=== PATIENT | female | born 1935 | race Caucasian/White ===

== ENCOUNTER → 2016-05-18 | Outpatient (CLI) | payer OTHER | LOC: MMPC 09:00 | PROVIDERS: ATTEND Family Medicine | DX: E11.40 Type 2 diabetes mellitus with diabetic neuropathy, unspecified (principal); M17.4 Other bilateral secondary osteoarthritis of knee; M54.5 Low back pain | CPT/HCPCS: 99212; G0463 ==

== ENCOUNTER 2016-08-23 17:29 | Emergency (ER) | payer OTHER ==
[2016-08-23] MEDS ORDERED: BACITRACIN 0.9 GM PACKET OINT TOPICAL ONE (17:43)
[2016-08-23 18:14] VITALS: RESP 16; TEMP 97.4
--- NOTE | 2016-08-23 20:42 | PDOC ---
Foot / Ankle Injury - General Chief Complaint: General Medical Stated Complaint: trimmed toenail/ won't stop bleeding Date Seen by Provider: 08/23/16 Time Seen by Provider: 17:30 Source: POSITIVE: Patient, EMS Exam Limitations: POSITIVE: No limitations Nurse's Notes Reviewed & Considered: Yes EMS Report Reviewed & Considered: Verbal - History of Present Illness Initial Comments: The patient is an 19 year old female. 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 She accidentally sliced the distal most tip of her left great toe with her scissors. Patient states that the wound bled persistently and the patient became alarmed and called the ambulance, who brought her to the emergency room. Have you received a tetanus shot in the past 10 years?: Yes Location: Left Foot Timing: REPORTS: Abrupt Duration: 1/2 hour Severity: Mild Quality: REPORTS: "Pain" (mild, locally at site of injury, left great toe) Location at Time of Onset: REPORTS: Home Context: REPORTS: Laceration Modifying Factors: REPORTS: Nothing Exacerbates Associated Symptoms: DENIES: Tingling Distally, Numbness Distally, Swelling, Snapping Sensation, Popping Sensation, Other Any Prior Injuries Related to Current Complaint?: No - Patient Allergies Allergies/Adverse Reactions: Allergies Allergy/AdvReac Type Severity Reaction Status Date / Time metoclopramide HCl Allergy Severe SHORTNESS Verified 08/23/16 17:41 [From Reglan] OF BREATH pregabalin [From Lyrica] Allergy Intermediate Nausea, Verified 08/23/16 17:41 confusion, dizziness, lightheaded - Patient Home Medications Home Medications: Home Medications Blood Sugar Diagnostic [Test Strip] 1 each IN TID #50 strip 06/01/13 Ropinirole HCl [Requip] 0.5 mg PO QHS #30 tab 08/11/15 Atenolol 1 tab PO DAILY #30 tab 11/11/15 Lisinopril 1 tab PO DAILY #30 tab 11/11/15 Aspirin 81 mg PO DAILY 01/30/16 Calcium 500 mg PO DAILY 01/30/16 Docusate Sodium [Stool Softener] 100 mg PO BID 01/30/16 Multivits W-Fe,Other Min [Century Senior] 1 each PO DAILY 01/30/16 Naproxen Sodium [Aleve] 220 mg PO BID 01/30/16 Gabapentin 1 cap PO QID #120 cap 10/26/16 Simvastatin 1 tab PO DAILY #90 tab 04/18/16 Omeprazole 1 cap PO DAILY #90 cap 04/20/16 Ceylon-3 Fatty Acids [Fish Oil] 300 mg PO DAILY 08/23/16 Past Medical History - heen HEENT History: Cataracts, Hard of Hearing, Dentures/Partials Additional HEENT History: WEARS GLASSES Cardiovascular History: Hypertension, Hyperlipidemia Additional Cardiovasular History: PALPITATIONS Respiratory History: Sleep Apnea, Home Oxygen Use Additional Respiratory History: USES OXYGEN AT NIGHT SINCE IS UNABLE TO WEAR CPAP MASK Gastrointestinal History: Denies History Genitourinary History: Denies History Additional Genitourinary History: diabetic nephropathy with mildly elevated creatinine. Endocrine History: Type 2 Diabetes (oral) Additional Endocrine History: HAS NOT HAD GLIPIZIDE IN [address] INSTRUCTION Musculoskeletal History: Arthritis, Back Pain, Muscle Weakness, Physical Limitation, Other (please comment) Prosthesis or Implant: No Additional Musculoskeletal History: PERIPHERAL NEUROPATHY Neurological History: Denies History Additional Neurological History: Restless legs syndrome that she attributes to metaclopramide therapy Blood Disorders: Denies History Psychiatric History: Depression History of Sexually Transmitted Diseases: No Cancer History: Denies History In Past Year Been Physically Harmed or Verbally Threatened: No History of MDRO: No History of Other Communicable Diseases: No Tobacco Use: Never Smoker Alcohol Use: None Substance Use Type: None Previous Surgical History: Yes Type / Date of Surgery: BLADDER SUSPENSION; CHOLECYSTECTOMY; HYST; LUMBAR FUSION ; CATARACT 07/21/12 Anesthesia Reactions: No Malignant Hyperthermia: No Significant Family History: Heart disease, Cancer, COPD, Diabetes, Hypertension Past Medical History Reviewed: Reviewed - No Changes ROS - Limitations ROS Limitations: No Limitations Constitution: REPORTS: Denies Symptoms Cardiovascular: REPORTS: Denies Cardiac Symptoms Respiratory: REPORTS: Denies Resp Symptoms Neurological: REPORTS: Denies Neuro Symptoms Gastrointestinal: REPORTS: Denies GI Symptoms Endocrine: REPORTS: Denies Symptoms Musculoskeletal: REPORTS: Recent Injury (Superficial slicing type injury tip of left great toe; see diagram) Genitourinary: REPORTS: Denies Symptoms Eyes: REPORTS: Denies Symptoms ENT: REPORTS: Denies Symptoms Skin: REPORTS: Other (Superficial slice type injury distal aspect left great toe ; see diagram) Lympathic: REPORTS: Denies Lympathic Symptoms Immunologic: POSITIVE: Denies Symptoms Psychiatric: POSITIVE: Denies Psych Symptoms Foot / Ankle Exam - General Appearance General Appearance: POSITIVE: Alert, Cooperative, No Acute Distress. NEGATIVE: No Evidence of Trauma (slice type laceration distal aspect left great toe; see diagram) - Extremities Foot: POSITIVE: Soft Tissue Tenderness. NEGATIVE: Bony Tenderness, Swelling, Ecchymosis, Limited ROM d/t Pain, Meehan. ROM d/t Decr. Funct., Deformity, Nail Injury, Complete Avulsion, Partial Avulsion, Subungual Hematoma (laceration tip of left great toe) Ankle: POSITIVE: Normal Inspection, Non-Tender, Normal ROM, Stable Gait: POSITIVE: Normal Neuro: POSITIVE: Sensation Normal, Motor Normal Vascular: POSITIVE: No Vascular Compromise, Full Pulses, Equal Pulses Tendons: POSITIVE: Tendon Function Normal Skin: POSITIVE: See Diagram (laceration) - Neck / Back Neck / Back: Normal Inspection - Respiratory / CVS Respiratory / CVS: POSITIVE: Chest Non-Tender, No Respiratory Distress, Heart Sounds Normal, Regular Rate/Rhythm, Breath Sounds Normal Peripheral Pulses: Radial (R): 2+, Radial (L): 2+, Dorsalis-pedis (R): 2+, Dorsalis-pedis (L): 2+ Images - Lower Extremities Feet: 1 - Superficial slice type injury left great toe with good hemostasis upon presentation to the emergency room. Foot / Ankle Progress - Results Reviewed by me Pain Medication Addressed: POSITIVE: Yes (recommended Tylenol) School/Work Release Addressed: POSITIVE: Not Applicable - Patient's Progress Re-Examine Time:: 17:45 Re-Examine Comment: Wound is very superficial and requires no sutures. Patient cleansed with normal saline and bacitracin dressing placed. Advised patient to not take aspirin, Aleve or Advil for 72 hours. Return here anytime if condition worsens in any way. Status: POSITIVE: Improved - Consult Counseled: POSITIVE: Patient, RE: DX, RE: Need for F/U Patient Care Time - Estimated PCT Patient Care Time (In Minutes): 15 Vital Signs - Recent Vital Signs Vital Signs: Vital Signs (Last 8 hours) Temp Pulse Resp BP Pulse Ox 08/23/16 17:35 97.4 F 66 16 107/60 93 - VS Reviewed Vital Signs Reviewed: Yes Discharge Clinical Impression: Laceration Discharge Disposition: Discharged to Home Condition: Fair Patient Instructions Given at Discharge: Laceration (ED) Additional Instructions: You have a very superficial laceration to the tip of the left great toe. No sutures were required for this injury. Your bleeding is well controlled. No aspirin, Aleve or Advil for 72 hours. Wash wound well with soap and water daily and you may apply bacitracin or Neosporin to the wound daily. Return anytime at first sign of infection or if condition worsens in any way. Follow- up with your primary care provider. Follow Up With: JAX CERVANTES [Primary Care Provider] - (Instructions as above. Follow-up with your primary care provider. Return as necessary.)
== END 2016-08-23 17:55 | disposition home or self-care (01) ==
LOC: ER 17:29
DX: S91.112A Laceration without foreign body of left great toe without damage to nail, initial encounter (principal); E11.9 Type 2 diabetes mellitus without complications; W45.8XXA Other foreign body or object entering through skin, initial encounter
CPT/HCPCS: 99282

== ENCOUNTER → 2016-09-10 | Outpatient (CLI) | payer OTHER ==
--- NOTE | 2016-09-10 14:55 | DI ---
XR L-SPINE 2-3 VW,09/10/2016 10:30 AM: Clinical History: Bilateral low back pain without sciatica. Previous Exam: October 28, 2013 Findings: AP and lateral views of the lumbar spine are obtained, and demonstrate grade 2 anterolisthesis of L4 on L5. There are intervertebral disc fusion devices noted as well. Peripheral vascular calcifications are stable. Patient is status post bilateral laminectomies at the L5 level. The patient is status post cholecystectomy. Impression: No significant change since the prior exam.
== END ==
LOC: ORTHO 10:46
PROVIDERS: ATTEND Orthopaedic Surgery
DX: M54.5 Low back pain (principal); M43.16 Spondylolisthesis, lumbar region; Z98.1 Arthrodesis status
CPT/HCPCS: 72100

== ENCOUNTER → 2016-10-01 | Outpatient (CLI) | payer OTHER ==
--- NOTE | 2016-10-01 14:26 | DI ---
MRI LEFT SHOULDER SCAN, 10/01/2016 12:58 PM: Clinical History: Left shoulder pain. Previous Exam: None at this facility. Technique: Axial, coronal, and sagittal fat saturated PD; axial gradient FE; coronal fat saturatedT2 weighted; sagittal T2 weighted. Motion correction sequences were utilized, but there is still some sl ight motion artifact on the oblique sagittal and coronal scans. There is no soft tissue edema. Moderate arthrosis of the AC joint is present along with fluid in the joint space. There is a small subchondral cyst in the humeral head at the attachment of the infraspin atus tendon. Fluid is present in the subacromion bursa. The articular surface partial thickness tear is present in the anterior aspect of the supraspinatus tendon and this measures approximately 10 x 10 mm in transverse and AP dimensions. There is tendinosis of the infraspinatus tendon as well as the t endon of the long head of the biceps muscle in the rotator interval. There is a type II SLAP tear wit h posterior extension into the posterosuperior quadrant. The IGHL complex is intact. Sagittal scans confirm the partial-thickness tear in the supraspinatus tendon. The subscapularis and teres minor tendons are normal. There is synovitis in the subscapularis recess. No muscular atrophy i s noted and there is no abnormal sclerosis of the glenoid fossa. There is a type I acromion. Axial scans demonstrate a cordlike middle glenohumeral ligament. The AC joint arthrosis is confirmed. There is thinning of the articular surfaces of the humeral head and glenoid fossa. Readin. There is a partial thickness articular surface tear of the anterior aspect of the supraspinatus t endon measuring 10 x 10 mm in AP and transverse dimensions. Tendinosis is present in the infraspinatu s tendon and the tendon of the long head of the biceps muscle in the rotator interval. There is a typ e II SLAP tear with posterior extension into the posterosuperior quadrant. Moderate arthrosis of the AC joint is noted with a joint effusion. 2. The subscapularis and teres minor tendons are intact. There is a type I acromion. Cartilaginous s urfaces of the humeral head and glenoid fossa are thin but intact.
== END ==
LOC: MRI 12:52
PROVIDERS: ATTEND Orthopaedic Surgery
DX: M25.512 Pain in left shoulder (principal); S43.432A Superior glenoid labrum lesion of left shoulder, initial encounter; M19.012 Primary osteoarthritis, left shoulder; S46.012A Strain of muscle(s) and tendon(s) of the rotator cuff of left shoulder, initial encounter
CPT/HCPCS: 73221

== ENCOUNTER → 2016-10-15 | Outpatient (CLI) | payer OTHER | LOC: MMPC 10:00 | PROVIDERS: ATTEND Orthopaedic Surgery | DX: S22.000S Wedge compression fracture of unspecified thoracic vertebra, sequela (principal); M54.6 Pain in thoracic spine; M43.16 Spondylolisthesis, lumbar region; M75.42 Impingement syndrome of left shoulder; M12.812 Other specific arthropathies, not elsewhere classified, left shoulder | CPT/HCPCS: 20610; 99214; G0463; J0702 ==

== ENCOUNTER → 2016-10-23 | Outpatient (CLI) | payer OTHER ==
--- NOTE | 2016-10-24 10:18 | DI ---
MRI THORACIC SPINE W/O CN,10/23/2016 1:53 PM: Clinical History: Compression fracture of the thoracic spine. Previous Exam: January 12, 2010 Findings: Multiplanar MR images are obtained through the thoracic spine without contrast. There is gentle dextroscoliosis of the thoracic spine centered at the T8/9 level. Vertebral body height is preserved except for some mild anterior wedging. There are diffuse degenerative changes of the cervical spine. The spinal cord descends normally with normal course, caliber and signal characteristics. The posterior fossa is unremarkable. Marrow signal is preserved. The posterior spinous processes are unremarkable. The major vascular flow voids are unremarkable. Individual intervertebral disc spaces: There is disc desiccation and a broad-based disc bulge at T6/7 . This is essentially unchanged from prior exam. There is some facet and ligamentum flavum hypertrophy contributing to stable moderate neural foramina l narrowing and mild central canal stenosis. T7/8: There is a very small broad-based disc bulge without significant stenosis. T8/9: No significant stenosis. T9/T10: Very small broad-based disc bulge without significant stenosis. T10/11: No significant stenosis. T11/12: There is disc desiccation, annular fissuring and a broad-based disc bulge combining with some mild facet hypertrophy to cause mild central canal stenosis and no significant neuroforaminal narrow ing. This is essentially unchanged from the prior exam. T12/L1: There is disc desiccation, a broad-based disc bulge and some annular fissuring at this level with some endplate osteophyte formation and some mild facet hypertrophy combining to cause mild centr al canal stenosis and mild bilateral neural foraminal narrowing. Impression: Multilevel degenerative disc disease essentially unchanged from the prior exam. No evidence of acute compression deformity.
--- NOTE | 2016-10-24 12:03 | DI ---
MRI LUMBAR SPINE W/O CN,10/23/2016 1:53 PM: Clinical History: Back pain. Previous Exam: October 28, 2013 Findings: Multiplanar MR images are obtained through the lumbar spine without contrast. There is grade 1 anterolisthesis of L4 on L5 and L5 on S1 unchanged from the prior exam. There is blooming metallic artifact at L4/5 and L5/S1. There is also blooming metallic artifact withi n the posterior soft tissues of the lumbar spine. The spinal cord descends normally with normal course, caliber and signal characteristics with a patrice l conus at the L1 level. There is fluid within the subcutaneous fat and within the paravertebral soft tissues. This collection remains stable dating back to 2013. Individual intervertebral disc spaces: T11/12: There is disc desiccation, annular fissuring and a 6 mm left paracentral disc fragment which causes some mild central canal stenosis. T12/L1: There is disc desiccation and, annular fissuring, and a broad-based disc bulge with some face t and ligamentum flavum hypertrophy contributing to mild central canal stenosis and mild bilateral ne ural foraminal narrowing. L1/2: There is disc desiccation, annular fissuring and facet hypertrophy and a broad-based disc bulge with some annular fissuring contributing to mild central canal stenosis and moderate to severe bilat eral neural foraminal narrowing. This is slightly worse than it was on the prior exam. L2/3: There is disc desiccation, annular fissuring and a broad-based disc bulge unchanged from the pr ior exam with facet and ligamentum flavum hypertrophy contributing to severe left and moderate to sev ere right lateral recess stenosis. This is also slightly worse than on the prior exam. This causes se veronica central canal stenosis L3/4: There is disc desiccation, a broad-based disc bulge and some significant facet and ligamentum f lavum hypertrophy to include a left synovial cyst measuring 8 mm in long axis unchanged from the prio r exam. There is severe central canal stenosis at this level with moderate to severe right and mild t o moderate left lateral recess stenosis. This is essentially unchanged from the prior exam. L4/5: There is grade 1 anterolisthesis at this level and there is stable postsurgical changes consist ent with interbody fusion at this level. There has also been bilateral laminectomies. There are fluid signal area is adjacent to the surgical site which were also seen on the prior exam, and remains unc hanged. There is stable severe right and moderate left neural foraminal narrowing. L5/S1: Patient is status post interbody fusion at this level. There is grade 1 anterolisthesis of L5 on S1. Posterior laminectomies are seen which decompress the central canal. There is severe right lat eral recess stenosis and severe left lateral recess stenosis. Impression: Diffuse degenerative changes and postsurgical changes as above which have slightly worsened since the prior exam. The worst involvement is seen at the L2/3 level where there is severe central canal stenosis and at t he L3/4 level where there is severe central canal stenosis.
== END ==
LOC: MRI 13:46
PROVIDERS: ATTEND Orthopaedic Surgery
DX: M54.5 Low back pain (principal); S22.000S Wedge compression fracture of unspecified thoracic vertebra, sequela; M51.16 Intervertebral disc disorders with radiculopathy, lumbar region; M51.15 Intervertebral disc disorders with radiculopathy, thoracolumbar region; M51.14 Intervertebral disc disorders with radiculopathy, thoracic region
CPT/HCPCS: 72146; 72148

== ENCOUNTER → 2016-11-28 | Outpatient (CLI) | payer OTHER ==
--- NOTE | 2016-11-28 14:29 | DI ---
AP PELVIS and RIGHT HIP, 11/28/2016 1:33 PM: Clinical History: Right hip pain. Previous Exam: None at this facility. There is no soft tissue abnormality. The bony structures of the pelvis are normal. 2 views of the rig ht hip show acetabular over coverage. The femoral head appears spherical. There is no joint space margaret rowing. There is osteoporosis. Readin. There is bony acetabular over coverage along the superior and lateral aspect of the acetabulum, b ut the joint space is preserved and the femoral head is spherical. No significant arthritic changes a re appreciated. 2. The AP pelvis view is unremarkable.
--- NOTE | 2016-11-28 18:19 | DI ---
LUMBAR SPINE SERIES, 11/28/2016 1:51 PM: Clinical History: Spondylolisthesis of the lumbar region. Previous Exam: 09/10/2016. At any of the levels Upright lateral flexion and extension views are submitted. The patient may actually be bending primar miriam through the hips rather than flexing or extending the lumbar region. The vertebral bodies are of normal height and size. There is disc space narrowing from L1-2 through L3-4. There is a minimal grad e 1 reverse spondylolisthesis at L1-2 and L2-3 with a minimal grade 1 spondylolisthesis at L3-4. Ther e is a grade 2 spondylolisthesis at L4-5 and anterior and posterior fusions have been performed with laminectomies at L4 and L5. There is no instability noted with flexion and extension maneuvers at any of these levels. Readin. Status post L4 and L5 laminectomies with anterior and posterior fusions at L4-5 and L5-S1. 2. There is a minimal grade 1 reverse spondylolisthesis at L1-2 and L2-3 and a minimal grade 1 spond ylolisthesis at L3-4. L4-5 has a grade 2 spondylolisthesis. No instability is noted with flexion and extension maneuvers but the patient may be pending primarily at the level of the hips rather than thr ough the lumbar spine. 3. Chronic disc space narrowing is present at L1-2 through L3-4.
== END ==
LOC: ORTHO 13:35
PROVIDERS: ATTEND Physician Assistant
DX: M54.5 Low back pain (principal); M25.551 Pain in right hip; M43.16 Spondylolisthesis, lumbar region; M48.06 Spinal stenosis, lumbar region; M47.816 Spondylosis without myelopathy or radiculopathy, lumbar region; M47.814 Spondylosis without myelopathy or radiculopathy, thoracic region; Z98.1 Arthrodesis status
CPT/HCPCS: 72100; 73502; 99214; G0463

== ENCOUNTER → 2016-12-05 | Outpatient (CLI) | payer OTHER ==
--- NOTE | 2016-12-05 20:04 | DI ---
CT LUMBAR SPINE W/O CONTRAST,12/05/2016 10:04 AM: Clinical History: Low back pain Previous Exam: None at this facility. Findings: Multiple helically acquired CT images are obtained through the lumbar spine without contrast. Sagitta l and coronal reconstructions are obtained, and demonstrate diffuse degenerative changes throughout t he lumbar spine. Bilateral laminectomies are noted involving the L4 and L5 levels. Advanced degenerative changes are s een as well. There is loss of intervertebral disc height at multiple levels. There is interbody fusio n at L5/S1. There is only some bony fusion at this level. There is grade 1 anterolisthesis of L4 and L5 also with interbody fusion with no significant new bone formation at this time. There is some anterior wedging of the L1 vertebral body as well as the T12 v ertebral body. Peripheral vascular calcifications are seen. The lung bases are clear. There is fluid density which is in continuity with the central canal which extends to the right at L5 into the posterior soft tissues. This may represent a meningocele or a persistent seroma. There is some mild levoscoliosis of the lumbar spine. Significant facet arthropathy is noted throughout. Individual intervertebral disc spaces: L1/2: There is some severe right and moderate to severe left neural foraminal narrowing at L1/2. At L2/L3: There is some severe facet hypertrophy and a broad-based disc bulge contributing to severe bilateral neural foraminal narrowing. L3/4: There is disc desiccation and a broad-based disc bulge combining with some facet and ligamentum flavum hypertrophy to cause moderate to severe right and moderate left neural foraminal narrowing. L4/5: There is grade 1 anterolisthesis which contributes to severe right and mild to moderate left ne ural foraminal narrowing. L5/S1: Bilateral laminectomies has decompression of the neuroforamina at this level. Impression: 1. Advanced degenerative changes and postsurgical changes as above. 2. Multilevel neuroforaminal narrowing as above.
== END ==
LOC: CT 09:56
PROVIDERS: ATTEND Neurological Surgery
DX: M54.5 Low back pain (principal); M47.816 Spondylosis without myelopathy or radiculopathy, lumbar region; Z98.1 Arthrodesis status
CPT/HCPCS: 72131

== ENCOUNTER 2016-12-12 08:23 | Day surgery (SDC) | payer OTHER ==
[~2016-12-12 08:23] MED LIST: BUPivacaine Inj 0.25% PF - 10ml vial IV ONE; DEXAMETHASONE PF 10 MG/1 ML VIAL IM ONE; Iopamidol Inj 61% 50 ML VIAL INTRATHEC ONE
--- NOTE | 2016-12-12 09:32 | GEN.OPNOTE ---
Transforaminal RANJANA Procedure: Transforaminal Epidural Steriod Injection Procedure Code - Neurosurgery: 66039.50 : Lumbar Transforaminal Epidural ( Bilateral) Preoperative Diagnosis: Lumbar Degenerative Disc Disease Postoperative Diagnosis: same -: Consent: Rationale for procedure, nature of procedure, possible risks and benefits were discussed with the patient. Risks including allergic reaction to medications, known effects of steroid medications including transient elevation in blood sugar with aggravation of pre-existing diabetes and remote risk of aseptic necrosis of the hip. Pain at the injection site, inadvertent dural puncture with resultant in CSF leak and headache possibly requiring further treatment. Infection or bleeding with potential risk of neurologic injury with weakness, paralysis or were all reviewed with the patient who wished to proceed. Anesthesia, sedation: No intravenous access or sedation was used. Physiologic monitoring of pulse and oxygen saturation was utilized. Procedure: The patient was placed prone on the operating room table, prepped with Chloraprep and sterilely draped. The skin was anesthetized with 1% Buffered Xylocaine. Under fluoroscopic control a 22-gauge Touhy needle was advanced into the area of the Kambin's triangle at the L34 level. Imaging confirmation of needle placement in the posterior, inferior and lateral quadrant of the foramen was obtained. Omnipaque was injected under real-time fluoroscopy demonstrating and epidurogram. Following this 2 ml of a mixture of dexamethasone (10mg/ml) and 1% ropivacaine was injected. AP and lateral images of the final needle placement was obtained. The needle was removed and same thing was done on the opposite side. The patient returned to the post procedure recovery room where they were monitored for any side effects. Pain assessment: Preprocedure pain []/10, post procedure pain []/10. Discharge instructions: Patient was given a pain log to be filled out and returned. A delayed response to the steroids of 2-5 days was discussed.
[2016-12-12 09:48] VITALS: RESP 18; TEMP 96.9
== END 2016-12-12 09:38 | disposition home or self-care (01) ==
LOC: SDSC 08:23
PROVIDERS: ATTEND Pain Medicine Interventional Pain Medicine
DX: M51.36 Other intervertebral disc degeneration, lumbar region (principal)
CPT/HCPCS: 64483; 76000; J1100; S0020

== ENCOUNTER → 2016-12-27 | Outpatient (CLI) | payer OTHER | LOC: MMPC 09:00 | PROVIDERS: ATTEND Family Medicine | DX: E11.40 Type 2 diabetes mellitus with diabetic neuropathy, unspecified (principal); M75.42 Impingement syndrome of left shoulder; M17.0 Bilateral primary osteoarthritis of knee; E78.5 Hyperlipidemia, unspecified; M12.811 Other specific arthropathies, not elsewhere classified, right shoulder; M47.26 Other spondylosis with radiculopathy, lumbar region | CPT/HCPCS: 99214; G0463 ==

== ENCOUNTER 2017-10-25 11:30 | Inpatient (IN) ==
[2017-10-25] MEDS ORDERED: Sodium Chloride 0.9% 1,000 ML PRIMARY IV ONE (12:05)
--- NOTE | 2017-10-25 12:39 | DI ---
Exam: CT HEAD Without Contrast INDICATION: Confusion TECHNIQUE: Multiple, contiguous 5 mm axial cuts of the brain are obtained from the posterior fossa to the cranial vault. No IV contrast is administered. COMPARISON: CT head 01/23/13 FINDINGS: There is a new area of low density crescentic in appearance in the left lentiform nucleus axial image 19. No other suspected possible regions of acute infarct identified by CT. No acute intracranial hemorrhage or midline shift or mass effect. Caliber of the ventricles, cisterns and sulci are within normal limits for patient's age with mild age-appropriate to last atrophy. There is periventricular and deep white matter regions of low density bilaterally compatible with chronic microvascular ischemic changes of the white matter of relative mild degree.. Verduzco-white differentiation is maintained. No skull fractures. The visualized portions of the paranasal sinuses are clear aside from opacification of one of the right posterior ethmoid air cells.. Visualized mastoid air cells are clear. There is mild vascular calcifications of the bilateral cavernous carotids and right intercranial vertebral artery again noted. IMPRESSION: 1. There is an approximate 1.5 x 0.5 cm area of crescentic low density in the left lentiform nucleus axial image 19. This is raising concern for a possible acute to subacute lacunar infarct. Correlate with clinical findings and if indicated MRI would be helpful to confirm or exclude acute lacunar infarct. 2. No acute intracranial hemorrhage or midline shift or mass effect. 3. Mild age-appropriate to last atrophy. Mild chronic microvascular ischemic changes of the white matter. 4. Opacification of one of the right posterior ethmoid air cells. Remaining paranasal sinuses are clear. Discussed with Dr. Cole Lehman on 10/25 12:35 (-06:00) [employer] 10/25/17 12:40 Call Doctor Regarding Stroke, called Dr. Cole Lehman on 10/25 12:40 (-06:00)
[2017-10-25 12:50] LABS: BASOPHILS # (AUTO) 0.04 10*3/UL; BASOPHILS % (AUTO) 0.5 % (0-1); EOSINOPHILS % (AUTO) 4.6 % (0-8); Hematocrit [HCT] 38.2 % (37.0-47.0); Hemoglobin [HGB] 12.5 g/dL (12.0-16.0); LYMPHOCYTES # (AUTO) 2.15 10*3/uL; MEAN CORPUSCULAR HEMOGLOBIN 31.4 PG (27-31); MEAN CORPUSCULAR HGB CONC 32.7 g/dL (33-37); MEAN PLATELET VOLUME 11.1 FL (7.4-12.2); MONOCYTES # (AUTO) 1.07 10*3/UL (0.3-0.8); MONOCYTES % (AUTO) 12.4 % (5-15); NEUTROPHILS # (AUTO) 4.95 10*3/UL; NEUTROPHILS % (AUTO) 57.4 % (50-80); RED BLOOD COUNT 3.98 10^6/uL (4.20-5.40)
[2017-10-25 12:51] LABS: PLATELET MORPHOLOGY COMMENT NORMAL MORPHOLOGY (NORM); RBC MORPHOLOGY COMMENT NORMAL MORPHOLOGY (NORM); WBC MORPHOLOGY COMMENT NORMAL MORPHOLOGY (NORM)
[2017-10-25 12:56] LABS: BILIRUBIN,URINE NEGATIVE (NEG); CLARITY,URINE CLEAR (CLEAR); COLOR,URINE YELLOW (Y); GLUCOSE, URINE (UA) NEGATIVE (NEG); OCCULT BLOOD,URINE NEGATIVE (NEG); PH,URINE 5.5 (5.0-8.5); PROTEIN,URINE NEGATIVE (NEG); UROBILINOGEN,URINE 0.2 EU/dL (0.2)
[2017-10-25 12:58] LABS: URINE SAMPLE TYPE CATH SPECIMEN
[2017-10-25 13:00] LABS: BLOOD UREA NITROGEN 32 mg/dL (7-22); SERUM ALBUMIN 3.7 g/dL (3.5-4.8)
--- NOTE | 2017-10-25 13:44 | EKG ---
[address] [place] [address] Measurements Intervals [place] Rate: 60 P: 59 AK: 238 QRS: -54 QRSD: 131 T: 104 QT: 452 QTc: 454 Interpretive Statements SINUS RHYTHM WITH FIRST DEGREE AV BLOCK INTRAVENTRICULAR CONDUCTION DELAY [130+ ms QRS DURATION] LEFT VENTRICULAR HYPERTROPHY AND ST-T CHANGE [VOLTAGE CRITERIA PLUS ST/T ABNORMALITY] LATERAL MYOCARDIAL INFARCTION [40+ ms Q WAVE AND/OR ST/T ABNORMALITY IN I/aVL/V5/V6], OF INDETERMINATE AGE Compared to ECG 04/19/2015 11:53:38 First degree AV block now present Intraventricular conduction delay now present Left ventricular hypertrophy now present ST (T wave) deviation now present Myocardial infarct finding now present Bradycardia, nonsinus no longer present Left-axis deviation no longer present Electronically Signed On 10-28-17 09:49:45 MDT by Francesco Pedraza MD [email or web address]
[2017-10-25] MEDS ORDERED: LIDOCAINE W/ SODIUM BICARB 0.5 ML SYR SUBD PRN (15:24)
[2017-10-25] MEDS ORDERED: traMADol 50 MG TABLET PO PRN (15:24)
[2017-10-25] MEDS ORDERED: LABETALOL 20 MG/4 ML (5 MG/1 ML) SYRINGE IVP PRN (15:24)
[2017-10-25] MEDS ORDERED: Glucagon Inj Vial 1 MG/ML VIAL IM PRN (16:21)
[2017-10-25] MEDS ORDERED: DEXTROSE 31 GM GEL PO PRN (16:21)
[2017-10-25] MEDS ORDERED: Insulin Sliding Scale Protocol SUBCUT PRN (16:21)
[2017-10-25] MEDS ORDERED: DEXTROSE 50%-WATER SYRINGE 50 ML SYRINGE IVP PRN (16:21)
[2017-10-25] MEDS ORDERED: Magnesium Sulfate 2gm (Premix) 2 GM/50 ML BAG IV ONE (16:22)
[2017-10-25] MEDS ORDERED: LORazepam 2 MG/1 ML VIAL IVP PRN (16:22)
--- NOTE | 2017-10-25 16:26 | PDOC ---
HPI - History of Present Illness Date of Service: 10/25/17 Time of Service: 16:26 Chief Complaint: Hallucinations and altered mental status History of Present Illness: The very pleasant 82-year-old female who has diabetes mellitus type II, well controlled, hypercholesterolemia, chronic back pain with history of lumbar surgery in the past, amongst other problems, who presents today with her daughter and granddaughter with complaints of hallucinations and altered mental status. The patient thought her granddaughter was at the house when she was not and Seeing animals such as black stallions, and towels and other items that were not present. She is quite angry and confused about these issues and had some word finding problems. Her speech sounded somewhat slurred. When the patient was found, it was noted that there were some pills on the floor and that the patient was taking random pills at home. She denied any headache, there was no facial droop, no weakness on one side or the other. Head CT scan done in the emergency room was negative for any bleed but seemed to suggest an acute ischemic stroke. Patient's not had anything like that happen before. She complains to me of excruciating back pain and she recently had some steroid injections done this week. She has been afebrile, and has not had any chills. The patient seemed to be a little bit better according to her granddaughter who found her earlier today in terms of her hallucinations and confusion. She is not sure what made the patient feel better. Other exacerbating factors were difficult to obtain in the patient's mental status made the history of present illness difficult to obtain as well. Other notes are that the patient has not had any urinary complaints, cough, or shortness of breath. Past Medical History Medical History: 1. 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 2. Diabetes mellitus type II, well controlled. 3. Hypercholesterolemia. 4. Obstructive sleep apnea. 5. History of a tremor, probably essential tremor. 6. Depression. 7. Hypertension Surgical History: Bladder suspension. Lumbar fusion in the past and apparently some sort of hardware removal per the patient's daughter. Status post cholecystectomy. Status post hysterectomy. Status post laser cataract surgery Pertinent Family History: Mother from cancer, she stated that she did not know why her father passed on Past Social History: Has 8 children. Does not smoke or drink. Lives alone at the [facility]. Tobacco Use: Never Smoker In the Past 12 Months, Have Used or Abuse Any of the Following Substance: None Alcohol Use: None Medication / Allergies Home Medications: Home Medications 3 Medication Instructions Recorded Confirmed Type Aspirin 81 mg PO DAILY 01/30/16 10/25/17 History Calcium 500 mg PO DAILY 01/30/16 10/25/17 History Docusate Sodium [Stool Softener] 100 mg PO BID 01/30/16 10/25/17 History Multivits W-Fe,Other Min [Century 1 ea PO DAILY 01/30/16 10/25/17 History Senior] [place]-3 Fatty Acids [Fish Oil] 300 mg PO DAILY 08/23/16 10/25/17 History Atenolol 1 tab PO DAILY #30 tab 11/14/16 10/25/17 Rx Melatonin 10 mg PO QHS 12/27/16 10/25/17 History solifenacin 10 mg tablet 10 mg PO QDAY #90 tab 02/11/17 10/25/17 Rx simvastatin 10 mg tablet 1 tab PO DAILY #90 tab 04/17/17 10/25/17 Rx blood sugar diagnostic strips 1 strip MISCELLANEOUS TID #100 06/10/17 10/25/17 Rx strip gabapentin 600 mg tablet 600 mg PO QID #120 tab 08/29/17 10/25/17 Rx lisinopril 2.5 mg tablet 2.5 mg PO DAILY #90 tab 09/17/17 10/25/17 Rx duloxetine 30 mg capsule,delayed 30 mg PO QDAY #30 cap 10/03/17 10/25/17 Rx release tramadol 50 mg tablet 100 mg PO Q4-6H #240 tab 10/16/17 10/25/17 Rx Allergies/Adverse Reactions: Allergies 3 Allergy/AdvReac Type Severity Reaction Status Date / Time metoclopramide HCl Allergy Severe SHORTNESS Verified 10/25/17 11:43 [From Reglan] OF BREATH pregabalin [From Lyrica] Allergy Intermediate Nausea, Verified 10/25/17 11:43 confusion, dizziness, lightheaded Review of Systems - Review of Systems All Systems: Reviewed & No Additional Complaints Except as Stated (This was a 12 point review systems) - Constitutional Constitutional: REPORTS: Weakness - Respiratory Respiratory: REPORTS: Negative System Review - Cardiovascular Cardiovascular: REPORTS: Negative System Review - Gastrointestinal Gastrointestinal / Abdominal: REPORTS: Other (Has occasional loose stools.) - Genitourinary Genitourinary: REPORTS: Incontinence - Musculoskeletal Musculoskeletal: REPORTS: Back Pain, Neck Pain, Joint Pain - Knees - Neurological Neurologic: REPORTS: Numbness/Paresthesia (Has peripheral neuropathy) - Psychiatric Psychiatric: REPORTS: Depressed Exam - Vitals Vital Signs: Vital Signs Temperature 97.2 F Temperature Source Temporal Artery Scan Pulse Rate [Pulse Oximeter] 63 Respiratory Rate 18 Blood Pressure [Left Arm] 112/68 Pulse Ox 92 Oxygen Delivery Method Room Air Height 5 ft 6 in Weight 180 lb - General General Appearance: No Acute Distress, Cooperative - Head Head Exam: Normal Inspection, Normocephalic, Atraumatic - Eye Eye Exam: POSITIVE: No Scleral Icterus - ENT ENT Exam: POSITIVE: Mucous Membranes Moist - Neck Neck Exam: Normal Inspection, No Tenderness, No Lymphadenopathy, No Thyromegaly , JVP is not Raised - Respiratory Respiratory Exam: POSITIVE: Clear to Auscultation - Bilaterally, Breathing Non Labored, Normal to Percussion and Palpation - Cardiovascular Cardiovascular Exam: POSITIVE: RRR, No Murmur, No Clicks, No Gallops, No Rubs, No JVD - GI/Abdominal GI/Abdominal Exam: POSITIVE: Normal Bowel Sounds, Non Tender, Non Distended, Soft - Rectal Rectal Exam: POSITIVE: Deferred - External Exam: POSITIVE: Deferred Exam: POSITIVE: Deferred - Extremities Extremities Exam: POSITIVE: No Clubbing Present, No Edema Present, No Cyanosis Present, Joint Swelling (The knees bilaterally probably have effusions on exam. Not erythematous and not hot to touch) - Back Back Exam: POSITIVE: No CVA Tenderness Additional Back Exam Details: Has a midline Band-Aid in place from recent spinal injection - Neurological Neurological Exam: POSITIVE: Alert, Oriented x 3, No Facial Droop, Speech Intact / Clear, Moves All Extremities Equally Additional Neurological Exam Details: Had occasional word finding problems although not markedly. This seemed to be worse when she got upset about the hallucinations and anger earlier today. She normally does not get angry, but was very upset when people did not understand that she was trying to find her granddaughter who was not present. - Psychiatric Psychiatric Exam: POSITIVE: Anxious - Integumentary Integumentary Exam: POSITIVE: Normal Color, Warm, Dry, Intact Results - Labs CBC and BMP: 10/25/17 12:30 06/15/18 12:30 Additional Lab Results: Laboratory Results 10/25/17 10/25/17 10/25/17 Range/Units 12:30 12:30 12:30 WBC 8.63 (4.8-10.8) 10^3/uL RBC 3.98 L (4.20-5.40) 10^6/uL Hgb 12.5 (12.0-16.0) g/dL Hct 38.2 (37.0-47.0) % MCV 96.0 (81-99) FL MCH 31.4 H (27-31) PG MCHC 32.7 L (33-37) g/dL RDW Std Deviation 43.7 (39-50) fL RDW Coeff of Danny 12.9 (11.5-14.5) % Plt Count 213 (140-350) 10*3/uL MPV 11.1 (7.4-12.2) FL Immature Gran % (Auto) 0.2 (0-5) % Neut % (Auto) 57.4 (50-80) % Lymph % (Auto) 24.9 (10-50) % [place] % (Auto) 12.4 (5-15) % Eos % (Auto) 4.6 (0-8) % Baso % (Auto) 0.5 (0-1) % Immature Gran # (Auto) 0.02 10*3/UL Neut # (Auto) 4.95 10*3/UL Lymph # (Auto) 2.15 10*3/uL [place] # (Auto) 1.07 H (0.3-0.8) 10*3/UL Eos # (Auto) 0.40 10*3/UL Baso # (Auto) 0.04 10*3/UL WBC Morphology Comment Normal morphology (NORM) Plt Morphology Comment Normal morphology (NORM) RBC Morph Comment Normal morphology (NORM) Sodium 137 (135-145) meq/L Potassium 4.0 (3.8-5.2) meq/L Chloride 98 (98-112) meq/L Carbon Dioxide 27 (23-33) meq/L Anion Gap 12 (5-20) BUN 32 H (7-22) mg/dL Creatinine 1.6 H (0.50-1.20) mg/dL Estimated GFR Public Relations Director BUN/Creatinine Ratio 20.00 (6-20) Glucose 104 (78-110) mg/dL Calculated Osmolality 290.0 (267-292) mOsm/kg Lactic Acid (0.70-2.10) MMOL/L Calcium 10.3 (8.7-10.7) mg/dL Magnesium 1.7 (1.6-2.4) mg/dL Total Bilirubin 0.6 (0.3-1.2) mg/dL AST 13 (8-39) IU/L ALT 26 (9-52) IU/L Alkaline Phosphatase 59 (38-126) IU/L Total Creatine Kinase 33 (30-136) IU/L Troponin I (< 0.040) ng/mL Total Protein 6.3 (6.1-8.0) g/dL Albumin 3.7 (3.5-4.8) g/dL Globulin 2.6 (2.50-4.10) g/dL Albumin/Globulin Ratio 1.40 (1.3-2.0) mg/g Ur Collection Type Cath specimen Urine Color Yellow (Y) Urine Clarity Clear (CLEAR) Urine pH 5.5 (5.0-8.5) Ur Specific [place] 1.006 (1.005-1.030) Urine Protein Negative (NEG) mg/dl Urine Glucose (UA) Negative (NEG) mg/dL Urine Ketones Negative (NEG) Urine Occult Blood Negative (NEG) Urine Nitrate Negative (NEG) Urine Bilirubin Negative (NEG) Urine Urobilinogen 0.2 (0.2) EU/dL Ur Leukocyte Esterase Negative (NEG) Ur Culture Indicated? Culture not set 10/25/17 10/25/17 Range/Units 12:30 12:30 WBC (4.8-10.8) 10^3/uL RBC (4.20-5.40) 10^6/uL Hgb (12.0-16.0) g/dL Hct (37.0-47.0) % MCV (81-99) FL MCH (27-31) PG MCHC (33-37) g/dL RDW Std Deviation (39-50) fL RDW Coeff of Danny (11.5-14.5) % Plt Count (140-350) 10*3/uL MPV (7.4-12.2) FL Immature Gran % (Auto) (0-5) % Neut % (Auto) (50-80) % Lymph % (Auto) (10-50) % [place] % (Auto) (5-15) % Eos % (Auto) (0-8) % Baso % (Auto) (0-1) % Immature Gran # (Auto) 10*3/UL Neut # (Auto) 10*3/UL Lymph # (Auto) 10*3/uL [place] # (Auto) (0.3-0.8) 10*3/UL Eos # (Auto) 10*3/UL Baso # (Auto) 10*3/UL WBC Morphology Comment (NORM) Plt Morphology Comment (NORM) RBC Morph Comment (NORM) Sodium (135-145) meq/L Potassium (3.8-5.2) meq/L Chloride (98-112) meq/L Carbon Dioxide (23-33) meq/L Anion Gap (5-20) BUN (7-22) mg/dL Creatinine (0.50-1.20) mg/dL Estimated GFR BUN/Creatinine Ratio (6-20) Glucose (78-110) mg/dL Calculated Osmolality (267-292) mOsm/kg Lactic Acid 1.4 (0.70-2.10) MMOL/L Calcium (8.7-10.7) mg/dL Magnesium (1.6-2.4) mg/dL Total Bilirubin (0.3-1.2) mg/dL AST (8-39) IU/L ALT (9-52) IU/L Alkaline Phosphatase (38-126) IU/L Total Creatine Kinase (30-136) IU/L Troponin I < 0.012 (< 0.040) ng/mL Total Protein (6.1-8.0) g/dL Albumin (3.5-4.8) g/dL Globulin (2.50-4.10) g/dL Albumin/Globulin Ratio (1.3-2.0) mg/g Ur Collection Type Urine Color (Y) Urine Clarity (CLEAR) Urine pH (5.0-8.5) Ur Specific [place] (1.005-1.030) Urine Protein (NEG) mg/dl Urine Glucose (UA) (NEG) mg/dL Urine Ketones (NEG) Urine Occult Blood (NEG) Urine Nitrate (NEG) Urine Bilirubin (NEG) Urine Urobilinogen (0.2) EU/dL Ur Leukocyte Esterase (NEG) Ur Culture Indicated? - EKG Data -: EKG Interpreted by Me (Patient has what appears to be a first-degree AV block with nonspecific Q waves in 1 and aVL, and probable atrial enlargement.) - Imaging Status: Image Reviewed by Me (I looked at the head CT scan and appears negative for an acute bleed.) Assessment and Plan - Patient Problems (1) Toxic metabolic encephalopathy Current Visit: Yes Status: Acute Code(s): G92 - Toxic encephalopathy (2) Hallucinations Current Visit: Yes Status: Acute Code(s): R44.3 - Hallucinations, unspecified (3) Diabetic neuropathy Current Visit: No Status: Acute Onset Date: 06/04/13 Code(s): E11.40 - Type 2 diabetes mellitus with diabetic neuropathy, unspecified Qualifiers: Diabetes mellitus type: type 2 Diabetes mellitus complication detail: diabetic polyneuropathy Qualified Code(s): E11.42 - Type 2 diabetes mellitus with diabetic polyneuropathy (4) Dyslipidemia (high LDL; low HDL) Current Visit: Yes Status: Chronic Onset Date: 01/15/13 Code(s): E78.4 - Other hyperlipidemia (5) Diabetes mellitus type 2 in nonobese Current Visit: Yes Status: Chronic Onset Date: 01/08/12 Code(s): E11.9 - Type 2 diabetes mellitus without complications (6) Benign essential hypertension Current Visit: Yes Status: Chronic Onset Date: 01/15/13 Code(s): I10 - Essential (primary) hypertension - Assessment / Plan Additional Assessment/Plan Details: Admit the patient. In the differential, stroke is certainly consideration with word finding problems and possible findings of decreased cerebral perfusion on head CT scan noted in the emergency room. I think to answer this question of whether or not there is a stroke, we need to do a brain MRI scan and do MRA scanning of the head and neck to determine the vasculature involvement in this. For now, treat as of stroke, and allow permissive hypertension. Check blood sugars every before meals and daily at bedtime and do sliding scale insulin as necessary. Stop tramadol and also stop Neurontin as I think the patient has a toxic metabolic encephalopathy that is likely medication enhanced. I reviewed the clinic notes from the neurosurgery clinic and also the patient's primary care physician, and it has been suggested to the patient to stop using as much narcotic due to increasing confusion levels. In addition, Cymbalta is a recently started medication to see if depression and chronic pain could be controlled. It could be that Cymbalta is also acting centrally to cause the patient's increasing confusion and hallucinations. I may need to use antipsychotics if hallucinations cause harm to others or himself. CODE STATUS is confirmed with the patient's daughter, power of estate attorney, and the patient, who is lucid enough to provide history, DO NOT RESUSCITATE. We went through the risks and benefits of CPR. The patient's family seemed to understand them well. Check labs in a.m. Replace magnesium. In terms of the back, I'll try to discuss this a little further with the patient and her family as hopefully her mental status improves. With severe stenosis, it's likely that she'll need a surgical approach for this to improve. With the patient's bilateral knee pain, check knee x-rays in the morning. Complex, multifaceted differential can include not only toxic metabolic encephalopathy from medications or other sources, but could also include stroke and the possibility of meningitis muscles be considered given the recent back injection. I like to avoid an LP if we can, as the patient has no fever and likelihood of meningitis with no fevers is low, but should the patient develop a fever with this confusion then I think we will have no choice but to consider doing an LP. I did discuss the above plan with the patient, and her daughters and they agreed.
[2017-10-25] MEDS ORDERED: GABAPENTIN 300 MG CAPSULE PO SCH (17:00)
--- NOTE | 2017-10-25 18:45 | DI ---
EXAM: MR Angiography Neck Without Intravenous Contrast CLINICAL HISTORY: ITS.REASON stroke Physician Notes: Tech Comments: TECHNIQUE: Magnetic resonance angiography images of the neck without intravenous contrast. COMPARISON: No relevant prior studies available. FINDINGS: Right common carotid artery: Unremarkable. No significant stenosis. No dissection or occlusion. Right internal carotid artery: Unremarkable. Extracranial segment is patent with no significant stenosis. No dissection or occlusion. Right external carotid artery: Unremarkable. No occlusion. Right vertebral artery: Unremarkable. No significant stenosis. No dissection or occlusion. Left common carotid artery: Unremarkable. No significant stenosis. No dissection or occlusion. Left internal carotid artery: Unremarkable. Extracranial segment is patent with no significant stenosis. No dissection or occlusion. Left external carotid artery: Unremarkable. No occlusion. Left vertebral artery: Unremarkable. No significant stenosis. No dissection or occlusion. Soft tissues: Unremarkable as visualized. CAROTID STENOSIS REFERENCE USING NASCET CRITERIA: % ICA stenosis = (1 - narrowest ICA diameter/diameter of distal cervical ICA) x 100. Mild - <50% stenosis. Moderate - 50-69% stenosis. Severe - 70-94% stenosis. Near occlusion - 95-99% stenosis. Occluded - 100% stenosis. IMPRESSION: No clear flow-limiting stenosis within the inherent limitations of a time- of-flight/noncontrast exam. [employer] 10/25/17 18:56 Call Doctor Regarding Stroke, called Dr. Maguire on 10/25 18: 56 (-06:00)
--- NOTE | 2017-10-25 18:52 | DI ---
EXAM: MR Head Without Intravenous Contrast CLINICAL HISTORY: ITS.REASON Stroke Physician Notes: Tech Comments: TECHNIQUE: Magnetic resonance images of the head/brain without intravenous contrast in multiple planes. COMPARISON: CT of same date. FINDINGS: Brain: There is no diffusion abnormality to indicate acute or subacute infarct. No intracranial hemorrhage or mass. Involutional and microvascular ischemic changes are noted.. Ventricles: Unremarkable. No ventriculomegaly. Bones/joints: Unremarkable. Sinuses: Mucosal thickening involving the rightward ethmoid air cells.. Mastoid air cells: Small left mastoid effusion. Orbits: Bilateral lens prostheses. IMPRESSION: No diffusion abnormality to indicate acute or subacute infarct. Involutional and microvascular ischemic changes. Ethmoid sinus disease and trace left mastoid effusion. [employer] 10/25/17 18:56 Call Doctor Regarding Stroke, called Dr. Maguire on 10/25 18: 56 (-06:00)
[2017-10-25] MEDS ORDERED: HALOPERIDOL LACTATE 5 MG/1 ML AMPULE IVP PRN (18:54)
--- NOTE | 2017-10-25 18:54 | DI ---
EXAM: MR Angiography Head Without Intravenous Contrast CLINICAL HISTORY: ITS.REASON Stroke Physician Notes: Tech Comments: TECHNIQUE: Magnetic resonance angiography images of the head without intravenous contrast. COMPARISON: No relevant prior studies available. FINDINGS: Right internal carotid artery: No acute findings. Intracranial segment is patent with no significant stenosis. No aneurysm. Right anterior cerebral artery: Unremarkable. No occlusion or significant stenosis. No aneurysm. Right middle cerebral artery: Unremarkable. No occlusion or significant stenosis. No aneurysm. Right posterior cerebral artery: Unremarkable. No occlusion or significant stenosis. No aneurysm. Right vertebral artery: Unremarkable as visualized. Left internal carotid artery: No acute findings. Intracranial segment is patent with no significant stenosis. No aneurysm. Left anterior cerebral artery: Unremarkable. No occlusion or significant stenosis. No aneurysm. Left middle cerebral artery: Unremarkable. No occlusion or significant stenosis. No aneurysm. Left posterior cerebral artery: Unremarkable. No occlusion or significant stenosis. No aneurysm. Left vertebral artery: Unremarkable as visualized. Basilar artery: Signal drop out at the tip of the basilar artery likely reflects artifact. MRI demonstrated no brainstem or other posterior circulation infarct to accompany this finding. IMPRESSION: Technically limited. No clear proximal arterial occlusion or aneurysm. Signal drop out at the tip of the basilar artery likely reflects artifact. MRI demonstrated no brainstem or other posterior circulation infarct to accompany this finding. [employer] 10/25/17 18:56 Call Doctor Regarding Stroke, called Dr. Maguire on 10/25 18: 56 (-06:00)
[2017-10-25] MEDS: DOCUSATE 100 MG CAPSULE PO SCH (20:16)
[2017-10-25] MEDS ORDERED: Sodium Chloride 0.9% 500 ML IV ONE (20:29)
[2017-10-25] MEDS ORDERED: ATORVASTATIN 40 MG TABLET PO SCH (21:00)
[2017-10-25] MEDS: Insulin Lispro Flexpen 300 UNIT/3 ML INSULN.PEN SUBCUT SCH (22:04)
--- NOTE | 2017-10-25 22:24 | PDOC ---
General Adult HPI - General Chief Complaint: Psychiatric Complaint Stated Complaint: DELUSIONS/DIZZINESS/ANGER/SLURRED SPEECH Date Seen by Provider: 10/25/17 Time Seen by Provider: 11:45 Source: POSITIVE: Patient, Other (Grand daughter) Exam Limitations: POSITIVE: No limitations Nurse's Notes Reviewed & Considered: Yes - History of Present Illness Initial Comment: The patient is an 82-year-old female. She lives in an assisted living center. She is brought to the emergency room by her granddaughter. Patient states that she feels "real dizzy when I stand". Granddaughter states that the patient has been confused and is having some hallucinations. For example, granddaughter states that the patient was recently knocking on her neighbor's door in the exhibit preparator hours, thinking that she had a doctor's appointment. The patient , according to the patient's granddaughter, has also been searching the patient' s apartment looking for her great-granddaughter, "thinking that she was in her house ". Granddaughter also states that the patient has been having some hallucinations regarding "a black course outside her house ". Granddaughter also states that the patient has been "slurring her speech "and has been having episodes of "getting angry easily ". Patient reportedly has a history of diabetes mellitus was recently taken off her glyburide. Granddaughter is concerned that the patient can no longer care for herself in her present residence. Have you received a tetanus shot in the past 10 years?: Yes Body Location Affected: REPORTS: Other (As above) Timing: REPORTS: Constant, Getting Worse Duration: >24 hours Severity: Moderate Quality: REPORTS: Other (Patient denies any pain anywhere) Context: REPORTS: None Modifying Factors: improves with: Nothing Similar Symptoms Previously: No Recent Care Received: REPORTS: Denies - Patient Home Medications Home Medications: Home Medications Aspirin 81 mg PO DAILY 01/30/16 Calcium 500 mg PO DAILY 01/30/16 Docusate Sodium [Stool Softener] 100 mg PO BID 01/30/16 Multivits W-Fe,Other Min [Century Senior] 1 ea PO DAILY 01/30/16 Malo-3 Fatty Acids [Fish Oil] 300 mg PO DAILY 08/23/16 Atenolol 1 tab PO DAILY #30 tab 11/14/16 Melatonin 10 mg PO QHS 12/27/16 solifenacin 10 mg tablet 10 mg PO QDAY #90 tab 02/11/17 simvastatin 10 mg tablet 1 tab PO DAILY #90 tab 04/17/17 blood sugar diagnostic strips 1 strip MISCELLANEOUS TID #100 strip 06/10/17 gabapentin 600 mg tablet 600 mg PO QID #120 tab 08/29/17 lisinopril 2.5 mg tablet 2.5 mg PO DAILY #90 tab 09/17/17 duloxetine 30 mg capsule,delayed release 30 mg PO QDAY #30 cap 10/03/17 tramadol 50 mg tablet 100 mg PO Q4-6H #240 tab 10/16/17 - Patient Allergies Allergies/Adverse Reactions: Allergies 3 Allergy/AdvReac Type Severity Reaction Status Date / Time metoclopramide HCl Allergy Severe SHORTNESS Verified 10/25/17 17:25 [From Reglan] OF BREATH pregabalin [From Lyrica] Allergy Intermediate Nausea, Verified 10/25/17 17:25 confusion, dizziness, lightheaded Past Medical History - heen HEENT History: Cataracts, Hard of Hearing, Dentures/Partials Additional HEENT History: WEARS GLASSES Cardiovascular History: Hypertension, Hyperlipidemia Additional Cardiovasular History: PALPITATIONS Respiratory History: Sleep Apnea, Home Oxygen Use Additional Respiratory History: USES OXYGEN AT NIGHT SINCE IS UNABLE TO WEAR CPAP MASK Gastrointestinal History: Denies History Genitourinary History: Denies History Additional Genitourinary History: diabetic nephropathy with mildly elevated creatinine. Endocrine History: Type 2 Diabetes (oral) Additional Endocrine History: HAS NOT HAD GLIPIZIDE IN [address] INSTRUCTION Musculoskeletal History: Arthritis, Back Pain, Muscle Weakness, Physical Limitation, Other (please comment) Prosthesis or Implant: No Additional Musculoskeletal History: PERIPHERAL NEUROPATHY Neurological History: Denies History Additional Neurological History: Restless legs syndrome that she attributes to metaclopramide therapy Blood Disorders: Denies History Psychiatric History: Depression History of Sexually Transmitted Diseases: No Female Reproductive History: Hysterectomy Cancer History: Denies History In Past Year Been Physically Harmed or Verbally Threatened: No History of MDRO: No History of Other Communicable Diseases: No Tobacco Use: Never Smoker Alcohol Use: None In the Past 12 Months, Have Used or Abuse Any Substance: None Previous Surgical History: Yes Type / Date of Surgery: BLADDER SUSPENSION; CHOLECYSTECTOMY; HYST; LUMBAR FUSION ; CATARACT 07/21/12, COMPLETE HYSTERECTOMY, RANJANA L3-4 10/16/2017 Anesthesia Reactions: No Malignant Hyperthermia: No Significant Family History: Heart disease, Cancer, COPD, Diabetes, Hypertension Past Medical History Reviewed: Reviewed - No Changes ROS - Limitations ROS Limitations: No Limitations Constitution: REPORTS: Other ("Dizziness ") Cardiovascular: REPORTS: Denies Cardiac Symptoms Respiratory: REPORTS: Denies Resp Symptoms Neurological: REPORTS: Confusion, Dizziness Gastrointestinal: REPORTS: Denies GI Symptoms Endocrine: REPORTS: Denies Symptoms Musculoskeletal: REPORTS: Denies MS Symptoms Genitourinary: REPORTS: Denies Symptoms Eyes: REPORTS: Denies Symptoms ENT: REPORTS: Denies Symptoms Skin: REPORTS: Denies Skin Symptoms Lympathic: REPORTS: Denies Lympathic Symptoms Immunologic: POSITIVE: Denies Symptoms Psychiatric: POSITIVE: Confusion (Patient is confused with regard to date and president. She is very vague historian.) General Adult Exam - General Appearance General Appearance: POSITIVE: Cooperative, No Acute Distress, No Evidence of Trauma. NEGATIVE: Alert (Confused with regard to date and president) - HEENT HEENT: POSITIVE: Head Inspection Nml, Eyes Inspection Nml, Ears Inspection Nml, Nose Inspection Nml, Oral/Dental Inspect. Nml, Pharynx Inspect. Nml, PERRL, EOMI - Pupils Pupil Size: 3 mm: Bilateral - Neck Neck: POSITIVE: Normal Inspection, Thyroid Normal - Respiratory Respiratory: POSITIVE: No Respiratory Distress, Breath Sounds Normal, Chest Non- Tender - Cardiovascular Cardiovascular: POSITIVE: Regular Rate & Rhythm, No Murmur, No Gallop, PMI Normal Peripheral Pulses: Radial (R): 2+, Radial (L): 2+ - Abdomen Abdomen: Soft: (All Quadrants), Normal Bowel Sounds: (All Quadrants), Denies Tenderness: (All Quadrants), No Splenomegaly: (All Quadrants), No Hepatomegaly: (All Quadrants), No Guarding: (All Quadrants), No Rebound: (All Quadrants), No Palpable Pulse: (All Quadrants), No Palpabale Mass: (All Quadrants), No Distention: (All Quadrants), No Rigidity: (All Quadrants) - Back Back: POSITIVE: Normal Inspection - Skin Skin: POSITIVE: Normal Color, Warm, Dry, No Rash - Extremities Extremity: Non-Tender: (All Extremities), Normal ROM: (All Extremities), Normal Inspection: (All Extremities) - Neurological / Psychological Neurological: 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 NEGATIVE: Oriented X3 (Patient confused to date and president) General Adult Progress - Results Reviewed by me Xrays/CTs/US Reviewed by me: Yes Discussed with Radiologist: Yes Radiology Findings: CT scan head without contrast shows "a new area of low density crescentic in appearance in the left lentiform nucleus". Lab Results Reviewed by Me: Yes CBC and BMP: 10/25/17 12:30 10/25/17 12:30 EKG Interpreted/Reviewed By Me:: Yes (he ventricular conduction delay) EKG Interpretation:: POSITIVE: Normal Sinus Rhythm, Normal Rate, Normal ST/T. NEGATIVE: Normal Intervals, Normal [place], Normal QRS - Patient's Progress Pain Medication Addressed: POSITIVE: Not Applicable School/Work Release Addressed: POSITIVE: Not Applicable Re-Examine Time: 14:10 Re-Examine Comment: Results of laboratory values and CT scan and electrocardiogram discussed with patient and granddaughter. Alternatives of treatment discussed. Patient showed no evidence of obvious hallucinations or delusions while in the emergency room. Patient unable care for herself in her present living situation. Patient admitted by hospitalist. Status: POSITIVE: Unchanged, Re-Examined Antibiotics Given: No - Consult Consult (If Yes, Name of Consulting MD & Time Called): Yes (Dr. Workman, hospitalist) Consulting MD will see pt:: [place]IVE[place] [facility] [place] Counseled: POSITIVE: Patient, Family, RE: Lab Results, RE: Radiology Results, RE : DX, RE: Need for F/U Patient Care Time - Estimated PCT Patient Care Time (In Minutes): 60 Vital Signs - VS Reviewed Vital Signs Reviewed: Yes Discharge Clinical Impression: Confusion, Hallucinations, Abnormal CT scan of head Discharge Disposition: Admit to Inpatient Condition: Fair Date Decision to Admit to Inpatient: 10/25/17 Time Decision to Admit to Inpatient: 14:10
[2017-10-26 05:25] LABS: BLOOD UREA NITROGEN 31 mg/dL (7-22); BUN/CREATININE RATIO 22.14 (6-20); CHOL/HDL RATIO 3.02 RATIO (0-4.0); SERUM CHOLESTEROL 109 mg/dL (120-200)
[2017-10-26 05:38] LABS: BASOPHILS # (AUTO) 0.04 10*3/UL; BASOPHILS % (AUTO) 0.5 % (0-1); EOSINOPHILS # (AUTO) 0.58 10*3/UL; EOSINOPHILS % (AUTO) 6.7 % (0-8); Hemoglobin [HGB] 11.6 g/dL (12.0-16.0); LYMPHOCYTES # (AUTO) 2.78 10*3/uL; MEAN CORPUSCULAR HEMOGLOBIN 31.1 PG (27-31); MEAN CORPUSCULAR HGB CONC 32.2 g/dL (33-37); MEAN CORPUSCULAR VOLUME 96.5 FL (81-99); MEAN PLATELET VOLUME 11.2 FL (7.4-12.2); MONOCYTES # (AUTO) 0.93 10*3/UL (0.3-0.8); MONOCYTES % (AUTO) 10.7 % (5-15); NEUTROPHILS # (AUTO) 4.34 10*3/UL; NEUTROPHILS % (AUTO) 49.9 % (50-80); RED BLOOD COUNT 3.73 10^6/uL (4.20-5.40)
[2017-10-26 05:46] LABS: PLATELET MORPHOLOGY COMMENT NORMAL MORPHOLOGY (NORM); RBC MORPHOLOGY COMMENT NORMAL MORPHOLOGY (NORM); WBC MORPHOLOGY COMMENT NORMAL MORPHOLOGY (NORM)
[2017-10-26 05:54] LABS: HEMOGLOBIN A1C 5.28 % (4.2-6.0)
[2017-10-26] MEDS: Insulin Lispro Flexpen 300 UNIT/3 ML INSULN.PEN SUBCUT SCH ×4 (08:21→20:35)
[2017-10-26] MEDS: DOCUSATE 100 MG CAPSULE PO SCH ×2 (08:49→20:15)
[2017-10-26] MEDS: Multivitamin Tab 1 TAB PO SCH (08:49)
[2017-10-26] MEDS: ENOXAPARIN SODIUM 30 MG/0.3 ML SYRINGE SUBCUT SCH (08:49)
[2017-10-26] MEDS: ASPIRIN 325 MG TABLET PO SCH (08:49)
[2017-10-26] MEDS ORDERED: FATTY ACIDS PO SCH (09:00)
[2017-10-26] MEDS ORDERED: OMEGA PO SCH (09:00)
[2017-10-26] MEDS ORDERED: SOLIFENACIN 10 MG PO SCH (09:00)
[2017-10-26] MEDS ORDERED: DULOXETINE 30 MG CAPSULE PO SCH (09:00)
--- NOTE | 2017-10-26 10:08 | OT.PROG ---
Progress Note Progress Note: S: pt stated she was doing rather well. She stated she had not got much sleep last night. O: pt was supine in bed in participated in UE exercises with RTB in all bicep flex, IROT/EROT, shoulder ext/flex and rows x15 with BUE to assist with strength and postural transitions. Pt completed bed mobility from supine to EOB with MOd INd as it took her longer to complete. She then needed mod A to leodan LE garments before preparing for transfer. She then completed transfer apprx 350 ft with 4Ww while taking no breaks. she returned to her room and sat in chair as breakfast was awaiting her. A: pt demonstrated good strength with UE's and mobility by completing bed mobility. Her activity tolerance was good as well. She may continue to benefit from therapy to work on strength and increase activity tolerance even more and monitor her ADL's. reported that he will cancel her swallow eval at this time as he believes she is doing good. P: continue per POC.
--- NOTE | 2017-10-26 11:48 | PDOC(PROG) ---
Date and Time of Service: 10/26/2017, 1144 Interval History: Discussed with daughter at bedside and granddaughter at bedside. Also had another daughter on speaker phone. Patient feels much better, no she is in the hospital, does not recall the date, but knows it's October,. She is much more alert and is not complaining of any chest pain, shortness breath, or back pain at this point. Objective : Data - Labs CBC and BMP: 10/26/17 04:59 10/26/17 04:59 - Imaging MRI Status: Report Reviewed by Me (I discussed the MRI scan of the brain and MRA scans of the head and neck with radiology. They were negative for stroke or significant carotid artery disease.) Objective : Exam - General General Appearance: No Acute Distress, Cooperative Additional General Exam Details: Vital Signs - Last Taken Temperature 97.2 F 10/26/17 07:35 Pulse Rate 58 L 10/26/17 07:35 Respiratory Rate 20 10/26/17 07:35 Blood Pressure 121/39 10/26/17 07:35 Pulse Ox 97 10/26/17 07:35 - Eye Eye Exam: No Scleral Icterus - ENT ENT Exam: Mucous Membranes Moist - Neck Neck Exam: Normal Inspection, No Tenderness, No Lymphadenopathy, No Thyromegaly - Respiratory Respiratory Exam: Clear to Auscultation - Bilaterally, Breathing Non Labored - Cardiovascular Cardiovascular Exam: RRR, No Murmur, No Clicks, No Gallops, No Rubs, No JVD - GI/Abdominal GI/Abdominal Exam: Normal Bowel Sounds, Non Tender, Non Distended, Soft - Extremities Extremities Exam: No Clubbing Present, No Edema Present, No Cyanosis Present - Neurological Neurological Exam: Alert, Oriented x 3, No Facial Droop, Speech Intact / Clear, Moves All Extremities Equally Assessment and Plan - Patient Problems (1) Toxic metabolic encephalopathy Current Visit: Yes Status: Acute Code(s): G92 - Toxic encephalopathy (2) Hallucinations Current Visit: Yes Status: Resolved Code(s): R44.3 - Hallucinations, unspecified (3) Diabetic neuropathy Current Visit: Yes Status: Chronic Onset Date: 06/04/13 Code(s): E11.40 - Type 2 diabetes mellitus with diabetic neuropathy, unspecified Qualifiers: Diabetes mellitus type: type 2 Diabetes mellitus complication detail: diabetic polyneuropathy Qualified Code(s): E11.42 - Type 2 diabetes mellitus with diabetic polyneuropathy (4) Dyslipidemia (high LDL; low HDL) Current Visit: Yes Status: Chronic Onset Date: 01/15/13 Code(s): E78.4 - Other hyperlipidemia (5) Diabetes mellitus type 2 in nonobese Current Visit: Yes Status: Chronic Onset Date: 01/08/12 Code(s): E11.9 - Type 2 diabetes mellitus without complications (6) Benign essential hypertension Current Visit: Yes Status: Chronic Onset Date: 01/15/13 Code(s): I10 - Essential (primary) hypertension (7) Spinal stenosis Current Visit: Yes Status: Acute Code(s): M48.00 - Spinal stenosis, site unspecified Qualifiers: Spinal region: lumbar Neurogenic claudication status: unspecified Qualified Code(s): M48.061 - Spinal stenosis, lumbar region without neurogenic claudication - Assessment / Plan Additional Assessment/Plan Details: Altered mental status is significantly improved. Patient is alert to being in the hospital, knows the year and month. She states that she may have some symptoms of early dementia and forgets dates and days frequently and sometimes conversations with her daughters. Continue off of medications although patient is very concerned about Vesicare for her bladder dysfunction. Check basic metabolic panel in a.m. Continue PT and OT, cancel swallow evaluation as there is no evidence of stroke. His appears to be medication induced toxic metabolic encephalopathy. Asterixis appears resolved
[2017-10-26] MEDS ORDERED: ERYTHROMYCIN BASE 1 GM EYE OINT RIGHT EYE ONE (11:49)
--- NOTE | 2017-10-26 12:32 | DI ---
EXAM: XR Left Knee, single AP views XR Right Knee, single AP views CLINICAL HISTORY: ITS.REASON knee pain, chronic Physician Notes: Tech Comments: TECHNIQUE: Single AP view of bilateral knees. COMPARISON: Right knee x-ray 01/30/16 FINDINGS: Bones/joints: Right knee moderate medial and lateral compartment joint space narrowing. Mild lateral marginal osteophytes. 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 Stable from prior study. Left knee mild to moderate lateral compartment narrowing. No acute fracture. No dislocation. Soft tissues: Unremarkable. IMPRESSION: 1. Right knee moderate medial and lateral compartment joint space narrowing. Mild lateral marginal osteophytes. 2. 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 Stable from prior study.
[2017-10-26] MEDS ORDERED: LIDOCAINE HCL 2 % 10 ML JELLY URO-JECT TOPICAL PRN (20:12)
[2017-10-26] MEDS: ERYTHROMYCIN BASE 1 GM EYE OINT EACH EYE SCH (20:15)
--- NOTE | 2017-10-26 22:52 | DI ---
EXAM: CT Abdomen and Pelvis Without Intravenous Contrast CLINICAL HISTORY: acute urinary retention Physician Notes: cannot do contrast with elevated creatinine. TECHNIQUE: Axial computed tomography images of the abdomen and pelvis without intravenous contrast. COMPARISON: 05/11/2016 FINDINGS: Lung bases: Stable linear atelectasis or chronic scarring at the lung bases. ABDOMEN: Liver: Unremarkable. Gallbladder and bile ducts: Status post cholecystectomy. No ductal dilation. Pancreas: Predominant fatty replacement of the pancreas is stable. No ductal dilation. Spleen: Unremarkable. No splenomegaly. Adrenals: Unremarkable. No mass. Kidneys and ureters: The kidneys demonstrate stable slightly lobulated contours and remain atrophic in appearance. No obstructing stones. No hydronephrosis. Stomach and bowel: Unremarkable. No obstruction. No mucosal thickening. PELVIS: Appendix: No findings to suggest acute appendicitis. Bladder: The bladder is decompressed with Li catheter in position. No stones. Reproductive: Unremarkable as visualized. ABDOMEN and PELVIS: Intraperitoneal space: Unremarkable. No free air. No significant fluid collection. Bones/joints: Severe degenerative changes of the inferior thoracic and lumbar spine with laminectomy defects inferior lumbar spine, stable in appearance from previous exam. Degenerative changes of the hips. Soft tissues: Stable chronic postsurgical changes of the dorsal soft tissues superficial to the surgical bed involving the lumbar spine. Vasculature: Unremarkable. No abdominal aortic aneurysm. Lymph nodes: Unremarkable. No enlarged lymph nodes. IMPRESSION: The kidneys remain atrophic in appearance and similar to examination May 11, 2016, accounting for lack of contrast without hydronephrosis. The bladder is decompressed with Li catheter in position limiting detailed evaluation without obvious abnormality.
[2017-10-27 05:35] LABS: BLOOD UREA NITROGEN 24 mg/dL (7-22)
[2017-10-27] MEDS: ENOXAPARIN SODIUM 30 MG/0.3 ML SYRINGE SUBCUT SCH (08:15)
[2017-10-27] MEDS: Insulin Lispro Flexpen 300 UNIT/3 ML INSULN.PEN SUBCUT SCH ×2 (08:16→12:17)
[2017-10-27] MEDS: Multivitamin Tab 1 TAB PO SCH (08:16)
[2017-10-27] MEDS: DOCUSATE 100 MG CAPSULE PO SCH ×2 (08:16→20:35)
[2017-10-27] MEDS: ASPIRIN 325 MG TABLET PO SCH (08:16)
--- NOTE | 2017-10-27 10:17 | OT.PROG ---
Progress Note Progress Note: S: pt states she has been getting lots of sleep. She was in good spirits today and accompanied by her daughter. She was very talkative throughout therapy. O: pt was seen in the a.m. and completed bed mobility Ind. She needed Mod A with LE dressing, mainly to navigate catheter through shorts. She completed functional transfer all the way downstairs with no breaks using a 4WW. She received moist heat to LE back for 15 min. She also completed SAQ/hip abd with 2 # within her tolerance to increase strength. She also completed clams/RTb, marches and UE exercises in bicep flex, shoulder ext, rows and hor abd all x 15 to increase her strength. She transferred INd to nU step where she completed 8 min to also increase activity tolerance. She transferred back to her room approx 150 ft with use of walker and was left upright in her chair. She was assisted with call to her daughter to notify her that she was finished with therapy. A: pt participate well today and displayed good activity tolerance and UE strength. pain in R hip caused her to stop some of the LE exercises. . She appeared slightly confused as she asked therapist about surgery today. P: continue per POC.
[2017-10-27] MEDS: ERYTHROMYCIN BASE 1 GM EYE OINT EACH EYE SCH ×2 (10:20→20:35)
--- NOTE | 2017-10-27 10:44 | IP.MD.NOTE ---
[facility] Assessment - - Level of education: High school Is patient alert: Yes - - What day of the week is it: Unable to identify correct day of the week What is the year: Able to identify correct year What state are we in: Able to identify correct state Problem solving question for the next 2 questions: 24 and 3 How much did you spend: Unable to calculate correct amount spend How much do you have left: Unable to calculate correct amount left Name as many animals as you can in one minute: 10-14 animals What were the five objects I asked you to remember: Unable to recall any objects Give me the numbers backwards eg. I say 42, you would say 24: Able to convert 87 to 78, Unable to convert numbers Place an X in the triangle: Unable to identify triangle Which of the above figures is largest: Able to identfiy largest figure What was the female's name: Unable to identify name When did she go back to work: Unable to recall when she will go back to work What work did she do: Unable to recall the work done What state did she live in: Unable to recall the correct state she lives in ( patient probably has moderate to severe dementia, will discuss with family in detail.) - - Total SLUMS Score: 5 -: SLUMS Exam Scoring High School Ed Less Than High School Ed 27-30 - - - - - - - - - - Normal - - - - - - - - - 25-30 - - - - - - - - - - - MNCD - - - - - - - - - --24 -20 - - - - - - - - - - Dementia - - - - - - - - -05-31 MNCD= Mild Neurocognitive Disorder
--- NOTE | 2017-10-27 12:56 | PDOC(PROG) ---
Date and Time of Service: 10/27/2017, 1250 Interval History: No complains of chest pain, shortness breath, nausea or vomiting. Events overnight included determining that the patient actually has urinary retention and it's difficult to tell if this is acute, related to use of Vesicare, or neurogenic bladder from severe spinal stenosis. Although she is alert and oriented to person, and oriented to being in the hospital, she is confused, and I did do a slums evaluation, and she scored 5 out of 30 possible points. She probably has moderate to severe dementia. She also had problems with sundowning and significant confusion overnight. I spoke to the patient's daughter at bedside, and it is clear that the patient is not a great candidate for living on her own. She probably needs 24/7 care and probably needs custodial care. She understood this, and agreed with that , but wants to discuss options with family and case management. Objective : Data - Labs CBC and BMP: 10/26/17 04:59 10/27/17 04:22 Objective : Exam - General General Appearance: No Acute Distress, Cooperative Additional General Exam Details: Vital Signs - Last Taken Temperature 97.4 F 10/27/17 11:09 Pulse Rate 86 10/27/17 11:09 Respiratory Rate 17 10/27/17 11:09 Blood Pressure 156/63 10/27/17 11:09 Pulse Ox 99 10/27/17 11:09 - Eye Eye Exam: No Scleral Icterus - ENT ENT Exam: Mucous Membranes Moist - Respiratory Respiratory Exam: Clear to Auscultation - Bilaterally, Breathing Non Labored - Cardiovascular Cardiovascular Exam: RRR, No Murmur, No Clicks, No Gallops, No Rubs, No JVD - GI/Abdominal GI/Abdominal Exam: Normal Bowel Sounds, Non Tender, Non Distended, Soft - Extremities Extremities Exam: No Clubbing Present, No Edema Present, No Cyanosis Present - Neurological Neurological Exam: Alert, No Facial Droop, Speech Intact / Clear, Moves All Extremities Equally - Psychiatric Psychiatric Exam: Normal Mood Assessment and Plan - Patient Problems (1) Urinary retention with incomplete bladder emptying Current Visit: Yes Status: Acute Code(s): R33.9 - Retention of urine, unspecified (2) Toxic metabolic encephalopathy Current Visit: Yes Status: Resolved Code(s): G92 - Toxic encephalopathy (3) Hallucinations Current Visit: Yes Status: Acute Code(s): R44.3 - Hallucinations, unspecified (4) Diabetic neuropathy Current Visit: Yes Status: Chronic Onset Date: 06/04/13 Code(s): E11.40 - Type 2 diabetes mellitus with diabetic neuropathy, unspecified Qualifiers: Diabetes mellitus type: type 2 Diabetes mellitus complication detail: diabetic polyneuropathy Qualified Code(s): E11.42 - Type 2 diabetes mellitus with diabetic polyneuropathy (5) Dyslipidemia (high LDL; low HDL) Current Visit: Yes Status: Chronic Onset Date: 01/15/13 Code(s): E78.4 - Other hyperlipidemia (6) Diabetes mellitus type 2 in nonobese Current Visit: Yes Status: Chronic Onset Date: 01/08/12 Code(s): E11.9 - Type 2 diabetes mellitus without complications (7) Benign essential hypertension Current Visit: Yes Status: Chronic Onset Date: 01/15/13 Code(s): I10 - Essential (primary) hypertension (8) Spinal stenosis Current Visit: Yes Status: Acute Code(s): M48.00 - Spinal stenosis, site unspecified Qualifiers: Spinal region: lumbar Neurogenic claudication status: unspecified Qualified Code(s): M48.061 - Spinal stenosis, lumbar region without neurogenic claudication (9) Dementia Current Visit: Yes Status: Acute Code(s): F03.90 - Unspecified dementia without behavioral disturbance Qualifiers: Dementia type: Alzheimer's disease Alzheimer's disease onset: late-onset Dementia behavioral disturbance: without behavioral disturbance Qualified Code (s): G30.1 - Alzheimer's disease with late onset; F02.80 - Dementia in other diseases classified elsewhere without behavioral disturbance - Assessment / Plan Additional Assessment/Plan Details: I think we have now figured out that the patient had a toxic metabolic encephalopathy in the setting of underlying dementia. As we have stopped these medications, she is more alert to person and she knows that she is in the hospital, but she is not alert to time or situation. Her slums evaluation really shows that she cannot handle areas of significant cognitive function or computations such as math. In my assessment, she is not really safe to live on her own. The patient's daughter agreed, but would like to discuss this with her family and with case management to determine options. [place], most likely jail facility or living at home with 24/7 care from one of the family members. Continue off of the medications were stopped. We need to continue the Li catheter for now, and given that the patient has had urinary retention, this could be related to Vesicare, or could even be neurogenic from spinal stenosis. She may have an underlying cystocele or rectocele, but I think that needs to be examined outside the hospital with hadoop developer or urologist. That way we have a better exam table. We may try a voiding trial again further out from discontinuation of these medications. If she does need long-term catheterization, a suprapubic catheter may be the thing to do here. I offered consideration for Aricept or Exelon therapy, and the family will decide this later. Blood sugars reviewed, have been well controlled enough that I don't think we need to continue to monitor them and can stop sliding scale insulin. Her diabetes is fairly well-controlled with diet alone. Case management consult
[2017-10-27] MEDS ORDERED: HALOPERIDOL LACTATE 5 MG/1 ML AMPULE IVP ONE (14:30)
[2017-10-28] MEDS: Multivitamin Tab 1 TAB PO SCH (08:31)
[2017-10-28] MEDS: ASPIRIN 325 MG TABLET PO SCH (08:31)
[2017-10-28] MEDS: DOCUSATE 100 MG CAPSULE PO SCH ×2 (08:31→20:36)
[2017-10-28] MEDS: ERYTHROMYCIN BASE 1 GM EYE OINT EACH EYE SCH ×2 (08:31→20:36)
--- NOTE | 2017-10-28 10:01 | PT.PROG ---
Progress Note Progress Note: S: Pt reports she is doing "fine". Pt c/o pain in R hand. O: Pt was walked down to therapy by OT. Pt was alert and came down with bedoya. Tx consisted of hip flexion, knee extension, heel raises, seated clams, AROM shoulder flexion and abduction 2 sets of 10 repetitions. Pt ambulated from therapy back to room about 300 feet with FWW and min Ax1. Nurses were alerted about warmth and pain of R hand. Pt was left in chair with call light and chair alarm set. A: Pt tolerated exercises well and stated she could continue after first set of exercise. Pt did not report fatigue or SOB on the walk back to room. Pt will continue to benefit from skilled therapy to increase strength and ability to balance. P: Continue POC to increase strength and ability to balance. Monae Mariano, SPT
--- NOTE | 2017-10-28 10:02 | PTI REPORT ---
Thank you for the referral of Christine Diego. She was seen on 10/25/17 for an inpatient evaluation secondary to a CVA. SUBJECTIVE: The patient is an 82-year-old female whose daughter states that she was brought to the hospital earlier today as she was seeing different things such as animals that were not really present. The patient also complains of a chronic history of low back pain, which is giving her issues at this time as well. The patient states she is doing fairly well and she states her biggest complaint is her low back pain. She denied any hallucinations or any numbness/tingling on either the right or left side. At times she was getting confused with her wording. Otherwise, the patient states she is doing okay and was willing to participate with physical therapy evaluation. The patient states that she lives at the [facility] where she does live by herself. She does ambulate with a four wheeled walker and states that she goes over to the [facility] for meals and also receives meals on wheels. The patient states she is independent with her ADLs and she does have a daughter and granddaughter in town who help as needed. The patient states that she was having issues a couple of weeks ago following an injection for her low back, but that has resolved and sh states she has not gotten much relief from the injection that she did receive. The patient has a history of Diabetes and she states that she doesn't always remember to check her sugar levels at times. The patient's goal is to get back to living in her apartment at [place]. PAST MEDICAL HISTORY: Past medical history can be found in the patient's medical record. OBJECTIVE FINDINGS: General observations: The patient was alert and oriented to setting upon PT arrival. The patient was just getting finished getting admitted by nursing staff. She was demonstrating a more depressed affect when nursing staff was finished asking her some of the psycho-social questions. She reports that she is having increased difficulty being able to do activities, which is affecting her overall well-being. The patient did take a few minutes to recover from that and did agree to participate with physical therapy. Balance: The patient was seated edge of bed and demonstrated good seated balance. Strength: Manual muscle testing was performed for bilateral lower extremities. The patient's left lower extremity was 4/5. The patient's right lower extremity was 3+/5. Pain: The patient denied any specific pain with manual muscle testing. Transfers: The patient was able to perform a [id number] transfer from edge of bed with the bed slightly raised. The patient demonstrated fair initial standing balance with hand hold assist x2 on the four wheeled walker. The patient demonstrated good safety awareness with utilizing the brakes for the four wheeled walker. Ambulation: The patient was able to ambulate with an antalgic gait pattern and a forward flexed posture x100 feet before requiring a seated rest break. The patient states she was limited by her low back pain and feeling tired. After a 3 minute rest break, the patient was able to ambulate another 50 feet back to her room, where she was left in her chair with alarm set and call light within reach. ASSESSMENT: The patient has fair rehab potential secondary to her age and past medical history. Problem List: Decreased endurance Decreased activity tolerance Patient is limited by her back pain Generalized weakness Short-Term Goals: To be met by discharge from inpatient: Patient will be able to perform transfer from bed to stand safely and independently. Patient will be able to ambulate at least 150 feet safely with her four wheeled walker without being limited by her low back pain. Patient will be safe to return back to her home and perform all ADLs required of her safely and independently. Long-Term Goals: To be met following discharge from inpatient: Patient may receive outpatient physical therapy if deemed necessary upon time of discharge to continue to work on her endurance and strength along with helping alleviate her low back pain. TREATMENT PLAN: Patient will be seen B.I.D during the week and one time per day over the weekend as an inpatient to address the above goals and objectives. INITIAL TREATMENT: Treatment today consisted of the initial evaluation activities. Following the evaluation the patient was left in her chair with alarm set and call light within reach while she waited for imaging to come and get her for her test. JAMARI
--- NOTE | 2017-10-28 10:58 | OT.PROG ---
Progress Note Progress Note: S: pt was accompanied by family, who reported that they are working on getting more help for her at her apt. O: pt was seen in her room and was upright in her chair. She needed mod A with dressing of UE today. She completed transfer downstairs with CGA for safety. She completed entire transfer with no breaks 150 ft. She completed 8 min on Nu step to increase activity tolerance. she transferred to mat table where she completed x10 sit to stands INd. She completed UE exercises with RTB in all planes to increase UE strength. She was returned to her room by PT. A: pt may continue to benefit from therapy to improve her ability to Ind completed ADL's. She is slightly confused at times and that may be the the main factor preventing her from being totally Ind. P: continue per POC.
[2017-10-28] MEDS ORDERED: Colchicine Tab 0.6 MG TABLET PO ONE (11:02)
[2017-10-28] MEDS ORDERED: METHYLPREDNISOLONE 4 MG TAB DOSE PACK(DAY 1-4 1230) PO SCH (12:00)
--- NOTE | 2017-10-28 13:26 | DI ---
RIGHT HAND, 10/28/2017 9:50 AM: Clinical History: Pain. Redness. Previous Exam: None at this facility. 3 views are submitted. There is no acute soft tissue, osseous, or joint abnormality. No alignment abn ormality is present. No bony erosive changes are identified. There are no soft tissue calcifications. Arthritic changes are present in the IP joint of the thumb as well as the PIP and DIP joints of the fingers consistent with osteoarthritis. Mild arthritic changes are present in the triscaphe joint of the wrist. Readin. There is no acute fracture or dislocation or evidence of periosteal new bone formation to suggest osteomyelitis. 2. Arthritic changes are present in the triscaphe joint of the wrist as well as the PIP and PIP join ts of the fingers and DIP joint of the consistent with osteoarthritis. There is no evidence to indica te gouty arthritis.
--- NOTE | 2017-10-28 13:29 | DI ---
RIGHT WRIST, 10/28/2017 9:50 AM: Clinical History: Pain. Redness. Previous Exam: None at this facility. 3 views are submitted. There is soft tissue swelling over the dorsal aspect of the wrist without evid ence of soft tissue gas. No soft tissue calcifications are present. There are no erosive changes of t he bones to suggest gouty arthritis. Mild to moderate degenerative changes present in the triscaphe j oint. There is no fracture or dislocation. Readin. Soft tissue swelling over the dorsal and ulnar aspect of the wrist joint without evidence of soft tissue gas or presence of a radiopaque foreign body. 2. There is no periosteal new bone formation to suggest acute osteomyelitis. 3. No bony erosive changes or soft tissue calcifications are seen to suggest tophaceous gout.
--- NOTE | 2017-10-28 14:11 | PT.PROG ---
Progress Note Progress Note: S: Pt stated therapy in the morning made her tired but she agreed to afternoon therapy. O: Pt was alert and seated in chair. Pt transferred from sit to stand with MOD A x1, v/c, and FWW. Pt ambulated from room to therapy with min A x2 and FWW. Pt demonstrates B trunk lean with walking. Tx consisted of 5 STS, 2 sets of 10 each of hip flexion, knee extension, DF, PF, clams, AROM shoulder flexion and abduction, and ambulation back to room. A: Pt needs v/c and MOD A x1 to safely transfer from STS. Pt follows simple, 2 step directions and visual demonstration. Pt demonstrates decreased strength, balance, and safety awareness. Pt was able to ambulate and complete exercise with no onset of fatigue, dizziness, or SOB. P: Pt will continue to benefit from skilled therapy to increase strength, improve balance, endurance, and safety awareness. Monae Mariano, SPT
[2017-10-28] MEDS ORDERED: ACETAMINOPHEN 325 MG TABLET PO PRN (14:49)
[2017-10-28] MEDS ORDERED: METHYLPREDNISOLONE 4 MG TAB DOSE PACK PO SCH (14:49)
[2017-10-28] MEDS ORDERED: HYDROcodone-APAP 5 MG -325 MG TABLET PO PRN (15:00)
[2017-10-28] MEDS ORDERED: METHYLPREDNISOLONE 4 MG TAB DOSE PACK(DAY 1 0700) PO SCH (15:00)
[2017-10-28] MEDS ORDERED: ATENOLOL 25 MG TABLET PO ONE (15:06)
--- NOTE | 2017-10-28 15:07 | PDOC(PROG) ---
Date and Time of Service: 10/28/2017, 1502 Interval History: Discussed with patient's daughter and son. Patient's daughter, Olivia, would like to move in with the patient and take her home. Our plan is to try to do a voiding trial without the catheter and see if the patient can urinate without developing urinary retention. She is complaining also, the patient that is, of wrist pain on her right wrist. She noted that her wrist was a little tender yesterday but there was no inflammation or swelling. Today it is red, tender to the touch but does not appear consistent with cellulitis. I think it may be gouty arthropathy. I had some x-rays ordered that are consistent with osteoarthritis. It looks even a little more consistent with a possible fluid collection in the wrist and I spoke with orthopedics and we'll get an MRI scan to isolate where the fluid is for possible aspiration of the wrist. In the meantime, I will stop colchicine, try pain control with Tylenol and hydrocodone. Objective : Data - Labs CBC and BMP: 10/26/17 04:59 10/27/17 04:22 Objective : Exam - General General Appearance: No Acute Distress, Cooperative Additional General Exam Details: Vital Signs - Last Taken Temperature 97.6 F 10/28/17 11:11 Pulse Rate 89 10/28/17 11:11 Respiratory Rate 24 10/28/17 11:11 Blood Pressure 199/96 10/28/17 11:11 Pulse Ox 95 10/28/17 11:11 - Eye Eye Exam: No Scleral Icterus - ENT ENT Exam: Mucous Membranes Moist - Respiratory Respiratory Exam: Clear to Auscultation - Bilaterally, Breathing Non Labored - Cardiovascular Cardiovascular Exam: RRR, No Murmur, No Clicks, No Gallops, No Rubs, No JVD - GI/Abdominal GI/Abdominal Exam: Normal Bowel Sounds, Non Tender, Non Distended, Soft - Extremities Extremities Exam: Joint Swelling (Right wrist has swelling and tenderness. Minimal erythema. Does not appear consistent with cellulitis. No skin breakdown.) - Neurological Neurological Exam: Alert, No Facial Droop, Speech Intact / Clear, Moves All Extremities Equally, Altered (She is oriented to person and place but not necessarily to time or situation.) Assessment and Plan - Patient Problems (1) Effusion of right wrist joint Current Visit: Yes Status: Acute Comment: Looks most consistent with possible gouty arthropathy flare, although radiographs seemed most consistent with osteoarthritis. Code(s): M25.431 - Effusion, right wrist (2) Urinary retention with incomplete bladder emptying Current Visit: Yes Status: Acute Comment: Could be related to Vesicare therapy or possibly neurogenic bladder from spinal stenosis or possible pelvic organ prolapse. She may have had a bladder sling in the past according to her daughter. Code(s): R33.9 - Retention of urine, unspecified (3) Dementia Current Visit: Yes Status: Acute Code(s): F03.90 - Unspecified dementia without behavioral disturbance Qualifiers: Dementia type: Alzheimer's disease Alzheimer's disease onset: late-onset Dementia behavioral disturbance: without behavioral disturbance Qualified Code (s): G30.1 - Alzheimer's disease with late onset; F02.80 - Dementia in other diseases classified elsewhere without behavioral disturbance (4) Hallucinations Current Visit: Yes Status: Acute Code(s): R44.3 - Hallucinations, unspecified (5) Diabetic neuropathy Current Visit: Yes Status: Chronic Onset Date: 06/04/13 Code(s): E11.40 - Type 2 diabetes mellitus with diabetic neuropathy, unspecified Qualifiers: Diabetes mellitus type: type 2 Diabetes mellitus complication detail: diabetic polyneuropathy Qualified Code(s): E11.42 - Type 2 diabetes mellitus with diabetic polyneuropathy (6) Dyslipidemia (high LDL; low HDL) Current Visit: Yes Status: Chronic Onset Date: 01/15/13 Code(s): E78.4 - Other hyperlipidemia (7) Diabetes mellitus type 2 in nonobese Current Visit: Yes Status: Chronic Onset Date: 01/08/12 Code(s): E11.9 - Type 2 diabetes mellitus without complications (8) Benign essential hypertension Current Visit: Yes Status: Chronic Onset Date: 01/15/13 Code(s): I10 - Essential (primary) hypertension (9) Spinal stenosis Current Visit: Yes Status: Acute Code(s): M48.00 - Spinal stenosis, site unspecified Qualifiers: Spinal region: lumbar Neurogenic claudication status: unspecified Qualified Code(s): M48.061 - Spinal stenosis, lumbar region without neurogenic claudication (10) Hypertension Current Visit: Yes Status: Acute Code(s): I10 - Essential (primary) hypertension Qualifiers: Hypertension type: essential hypertension Qualified Code(s): I10 - Essential (primary) hypertension - Assessment / Plan Additional Assessment/Plan Details: For the hypertension, I will resume atenolol and get a dose today. In addition since I'm stopping the SHANNAN inhibitor due to acute renal failure at the presence of the initial hospital stay, I will go ahead and start Norvasc in place of that. For the wrist inflammation, I think this is probably gouty arthropathy. I started colchicine and we gave 1 dose. That actually looks a little bit more fluid now is present on exam. I thought about starting Medrol Dosepak, but I would like to hold off until we see some fluid. In the meantime we'll try to control pain with Tylenol and hydrocodone. It may cause confusion with her underlying dementia that's been discovered here. All that being said, pain and could also make her more confused. We will get an MRI scan for possible risks aspiration and I've discussed with orthopedics in consult of them to help help us determine whether this could be gouty arthropathy or anything else. Obviously infection or septic joint could be in the differential but I suspect overall that this is either osteoarthritis or or gallop based on presentation. She is afebrile. Check labs in a.m. Including a CBC with differential and inflammatory markers. Our hope is that as the wrist issue is worked up and hopefully resolves, that we can get the patient home with her daughter, Olivia, and work on outpatient services that may be able to assist her in taking care of the patient. Urinary retention could very well be related to neurogenic bladder, lumbar spinal stenosis, or could be related to pelvic organ prolapse and she should have a good examination as an outpatient with an apple peeler operator. If it's really related to lumbar spinal stenosis, then she would require urology evaluation down the road. Our first step in trying to figure this out and make sure that is not from the Vesicare, is to discontinue catheter today and see if she has any postvoid residuals greater than 250 mL or so.
[2017-10-28] MEDS ORDERED: LORazepam 2 MG/1 ML VIAL IVP PRN (15:21)
--- NOTE | 2017-10-28 15:37 | OTI REPORT ---
Thank you for the referral of Christine Diego. She was seen on 10/25/17 for an occupational therapy inpatient evaluation secondary to a stroke. SUBJECTIVE: The patient is an 82-year-old female. The patient reports that she is feeling a little bit better now than she was this morning. She did report that she was feeling a little lightheaded and dizzy earlier today. The patient reports some significant back pain today. The patient's daughter and granddaughter were present for the evaluation and helped provide information on events leading up to admission to the hospital. The patient reported she was not feeling well and she got onto the bus to come to the hospital; however, that account was not correct. The patient's granddaughter reported that she was having some hallucinations earlier today. The family was concerned and brought her in for assessment. The patient lives independently at [facility]. The patient eats her meals at the [facility] and receives assistance from meals on wheels. The patient was independent with ADLs including bathing, upper and lower extremity dressing, grooming tasks, and iADLs including money management. The patient also completed medication management tasks independently with the use of pill boxes. The patient does have a history of Diabetes. When the patient was questioned, she reported that she usually checks her blood sugar levels; however, she has not been monitoring it closely within the last couple of days. PAST MEDICAL HISTORY: Past medical history can be found in the patient's medical record. OBJECTIVE FINDINGS: Range of motion: The patient demonstrated the ability to complete upper extremity shoulder range of motion which was 75% of full bilaterally. Elbow, hand, and wrist range of motion was within functional limits bilaterally. Strength: Upper extremity strength was 4/5 on the right side and 4+/5 on the left side for the shoulder, elbow, hand, and wrist. Activities of daily living: The patient demonstrated the ability to don and doff socks while sitting edge of bed independently. Ambulation: The patient demonstrated the ability to functionally ambulate with use of a four wheeled walker x100 feet. The patient uses a four wheeled walker to ambulate at home and within the community. Transfers: The patient completed a sit to stand transfer from a modified raised bed height with contact guard assist for safety. Vision: The patient had some difficulty visually tracking horizontally and vertically and struggled with convergence tasks. Cognition: The patient did have some difficulty pronouncing words with some words slurred. There was confusion. The patient was oriented to month, year, and place, but was not oriented to the date. ASSESSMENT: It is recommended at this time that the patient have further cognitive testing completed with a screening as well as possibly an aphasia screening. Problem List: Decreased cognition Decreased balance Decreased activity tolerance Decreased upper extremity strength Short-Term Goals: To be met by discharge from inpatient: Patient will increase bilateral upper extremity strength by one manual muscle grade. Patient will increase activity tolerance and standing balance in order to stand at the sink x10 minutes with zero losses of balance to complete grooming tasks. Patient will complete upper body and lower body dressing independently to include set up. Patient will be independent with medication management tasks to include checking her blood sugar levels. Patient will complete all functional transfers including shower/toilet/bed mobility independently with good safety awareness. Long-Term Goals: To be met following discharge from inpatient: Patient will return home to prior level of function with monitoring for cognitive decline and medication management. TREATMENT PLAN: Patient will be seen B.I.D during the week and one time per day over the weekend as an inpatient to address the above goals and objectives. INITIAL TREATMENT: Treatment today consisted of the initial evaluation followed by functional mobility tasks. JAMARI
--- NOTE | 2017-10-28 17:08 | OT.PROG ---
Progress Note Progress Note: S: Pt stated that she wanted to complete therapy now so she could spend time with her family. O: Pt participated in OT-session to address functional balance, donning of LE shoes and socks, and dynamic standing balance at sink for grooming. Pt successfully AMB 5ft w/ CGA to sink but required mod v/c to reorient 4WW w/ seat so she could sit at sink. Pt successfully demo'd washing of face and oral care w/ no v/c and w/ mod I. Pt required mod v/c to get back into hospital room recliner from stand to sit transfer from 4WW. Pt donned socks w/ mod I. Pt educated on use of shoe horn for shoes requiring max v/c for its use. Pt was oriented to self only. A: Pt's inability to follow directions and express self or answer questions limit ability to complete ADL tasks safey and in correct sequencing. Pt does not have any difficult with grooming or donning of socks, but more ADL's need to be assessed. P: Cont. skilled OT to address standing tolerance and ADL performance.
[2017-10-28] MEDS ORDERED: predniSONE Tab 20 MG TAB PO ONE (17:21)
[2017-10-28] MEDS ORDERED: METHYLPREDNISOLONE 4 MG TAB DOSE PACK(DAY 1-3 1730) PO SCH (17:30)
--- NOTE | 2017-10-28 17:49 | CONSULT ---
Consult Note - Consult Consult Date: 10/28/17 Reason for Consult: Orthopedic Consult Requesting Physician: Dr. Manuel Workman Primary Care Provider: Alfa Frances MD - History of Present Illness History of Present Illness: Patient is an 82-year-old female who was admitted for confusion at the end of last week since that time she has been intermittently confused and tODAY noted that she was having some discomfort in her right wrist. Patient stated that she thought it began to hurt a little yesterday little sore and today it became a little red and the consultation was requested. Patient has been seen in the past approximately 18 months ago with a gouty attack to her left index finger where it was extremely bright red that slowly dissipated over time and it was very clear that she had gouty crystals just under the skin. Patient with a clear history of gout. She notes that sore she has no fevers no chills no night sweats. Patient's creatinine on admission was elevated and is now coming down do not have a uric acid level. Past Medical History Medical History: 1. 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 2. Diabetes mellitus type II, well controlled. 3. Hypercholesterolemia. 4. Obstructive sleep apnea. 5. History of a tremor, probably essential tremor. 6. Depression. 7. Hypertension Surgical History: Bladder suspension. Lumbar fusion in the past and apparently some sort of hardware removal per the patient's daughter. Status post cholecystectomy. Status post hysterectomy. Status post laser cataract surgery Pertinent Family History: Mother from cancer, she stated that she did not know why her father passed on Past Social History: Has 8 children. Does not smoke or drink. Lives alone at the [facility]. Tobacco Use: Never Smoker In the Past 12 Months, Have Used or Abuse Any of the Following Substance: None Alcohol Use: None Medication / Allergies Home Medications: Home Medications 3 Medication Instructions Recorded Confirmed Type Aspirin 81 mg PO DAILY 01/30/16 10/25/17 History Calcium 500 mg PO DAILY 01/30/16 10/25/17 History Docusate Sodium [Stool Softener] 100 mg PO BID 01/30/16 10/25/17 History Multivits W-Fe,Other Min [Century 1 ea PO DAILY 01/30/16 10/25/17 History Senior] [place]-3 Fatty Acids [Fish Oil] 300 mg PO DAILY 08/23/16 10/25/17 History Atenolol 1 tab PO DAILY #30 tab 11/14/16 10/25/17 Rx Melatonin 10 mg PO QHS 12/27/16 10/25/17 History solifenacin 10 mg tablet 10 mg PO QDAY #90 tab 02/11/17 10/25/17 Rx simvastatin 10 mg tablet 1 tab PO DAILY #90 tab 04/17/17 10/25/17 Rx blood sugar diagnostic strips 1 strip MISCELLANEOUS TID #100 06/10/17 10/25/17 Rx strip gabapentin 600 mg tablet 600 mg PO QID #120 tab 08/29/17 10/25/17 Rx lisinopril 2.5 mg tablet 2.5 mg PO DAILY #90 tab 09/17/17 10/25/17 Rx duloxetine 30 mg capsule,delayed 30 mg PO QDAY #30 cap 10/03/17 10/25/17 Rx release tramadol 50 mg tablet 100 mg PO Q4-6H #240 tab 10/16/17 10/25/17 Rx Allergies/Adverse Reactions: Allergies 3 Allergy/AdvReac Type Severity Reaction Status Date / Time metoclopramide HCl Allergy Severe SHORTNESS Verified 10/27/17 06:52 [From Reglan] OF BREATH pregabalin [From Lyrica] Allergy Intermediate Nausea, Verified 10/27/17 06:52 confusion, dizziness, lightheaded Exam - - Exam: Vital Signs (72 hrs) Temp Pulse Pulse Pulse Resp BP BP 10/28/17 17:00 98.1 F 124 H 30 H 187/86 10/28/17 11:11 97.6 F 89 24 199/96 10/28/17 06:52 80 22 10/28/17 06:37 97.9 F 84 22 162/74 10/28/17 05:00 97.9 F 80 20 181/62 10/28/17 04:17 10/27/17 21:00 98.4 F 92 22 188/72 10/27/17 15:59 98.6 F 94 19 165/80 10/27/17 11:09 97.4 F 86 17 156/63 10/27/17 11:07 10/27/17 11:00 98 10/27/17 07:00 85 19 10/27/17 06:54 98.4 F 85 19 128/72 10/27/17 06:50 10/27/17 04:19 99.6 F 86 20 170/76 10/27/17 03:00 92 10/26/17 23:00 91 10/26/17 19:56 98.3 F 80 20 130/43 10/26/17 19:00 75 10/26/17 16:44 97.9 F 69 20 140/50 10/26/17 15:00 67 10/26/17 13:00 70 20 111/80 10/26/17 11:00 62 10/26/17 07:35 97.2 F 58 L 20 121/39 10/26/17 07:00 53 L 58 L 20 10/26/17 05:00 10/26/17 04:48 98.0 F 65 22 139/62 10/26/17 03:00 54 L 10/26/17 01:00 98.0 F 68 20 109/65 10/25/17 23:00 70 10/25/17 20:18 98.5 F 66 22 100/46 10/25/17 19:00 66 Pulse Ox 10/28/17 17:00 93 10/28/17 11:11 95 10/28/17 06:52 10/28/17 06:37 97 10/28/17 05:00 97 10/28/17 04:17 95 10/27/17 21:00 94 10/27/17 15:59 94 10/27/17 11:09 99 10/27/17 11:07 99 10/27/17 11:00 10/27/17 07:00 10/27/17 06:54 96 10/27/17 06:50 93 10/27/17 04:19 92 10/27/17 03:00 94 10/26/17 23:00 95 10/26/17 19:56 95 10/26/17 19:00 95 10/26/17 16:44 99 10/26/17 15:00 98 10/26/17 13:00 10/26/17 11:00 98 10/26/17 07:35 97 10/26/17 07:00 98 10/26/17 05:00 99 10/26/17 04:48 95 10/26/17 03:00 98 10/26/17 01:00 95 10/25/17 23:00 97 10/25/17 20:18 93 10/25/17 19:00 93 Patient's white cell count has been normal. Evaluation of the patient's right hand show that she has some swelling along the ulnar aspect of the hand around the extensor tendons of the extensor extensor digiti quinti minimally and around the ulnar aspect of the wrist. This is a more distal it may be around the ECU insertion. Slight tenderness to palpation is no fluctuance. Her sensory exam generally appears to be intact. Wrist motion is about 40 dorsiflexion 40 palmar flexion. Radial and ulnar deviation is about [address] supination pronation is to be full she has some limited digit extension about 20 short of full extension from second to fifth. But passively can get to about 10 and flexion is to about 85 from second to fifth. His noted that the patient is a poor historian and is not oriented to situation or place. Radiographs of the hand and wrist show varying degrees of arthritis at the first CMC joint the triscaphe he area the MCP and PIP joints. Some mild soft tissue swelling along the ulnar aspect of the wrist. MRI of the wrist shows a lot of edema within the soft tissue along the ulnar aspect of the wrist and distal forearm region. I don't see any clear fluid collection nor significant fluid within the carpal or radiocarpal or ulnocarpal joint regions. No clear evidence of osteomyelitis or septic arthritis. There was a fair amount of movement on some of the series but with the axials can see well enough to see that there is no clear collection of fluid - Vitals Vital Signs: Vital Signs Temperature 98.1 F Temperature Source Temporal Artery Scan Pulse Rate [Apical] 80 Pulse Rate [Pulse Oximeter] 124 Pulse Rate 98 Respiratory Rate 30 Blood Pressure [Right Arm] 181/62 Blood Pressure [Left Arm] 187/86 Pulse Ox 93 Oxygen Flow Rate 2 Oxygen Delivery Method Nasal Cannula Height 5 ft 6 in Weight 86.818 kg Results - Labs CBC and BMP: 10/26/17 04:59 10/27/17 04:22 Assessment and Plan - Assessment / Plan Additional Assessment/Plan Details: Impression: Patient with long history of gouty attacks and suspect that her left hand symptoms based on the clinical presentation over the last couple days and her lack of fevers or elevated white count I don't suspect an infectious process. Plan: We will continue to follow the patient closely for any evidence of a septic process. She will continue to work with physical therapy and occupational therapy. Patient will have a uric acid level drawn though I suspect that this will be within the normal range we will get a better sense of whether this is high normal. The other possibility certainly could be calcium pyrophosphate disease. - Time/Visit Time Spent With Patient: 15-25 Minutes
[2017-10-28] MEDS: NYSTATIN 15 GM POWDER TOPICAL SCH (20:37)
--- NOTE | 2017-10-28 20:44 | DI ---
MRI RIGHT DISTAL FOREARM AND WRIST SCAN, 10/28/2017 2:54 PM: Clinical History: Wrist effusion. Pain. Previous Exam: None at this facility. Technique: Axial, coronal, and sagittal PD; fat saturated PD. Unfortunately, there are extensive arlene on artifacts involving the wrist on all sequences. There is soft tissue edema almost circumferentially around the wrist region. There is no obvious abno rmal bone signal pattern noted. There is fluid in the radiocarpal joint and a small amount of fluid i n the distal radioulnar joint. Unfortunately, because of the motion artifacts, assessment for abnorma lities of the scapholunate and lunotriquetral ligaments and the triangular fibrocartilage is not poss ible. No gross tendon abnormality is appreciated. Readin. Fluid is present in the radiocarpal joint and the distal radioulnar joint. There is soft tissue s welling around the entire wrist region. Assessment for tears of the scapholunate or lunatotriquetral ligaments or the triangular fibrocartilage is not possible. 2. No abnormal bone signal pattern is noted. The flexor and extensor tendons are grossly normal.
[2017-10-28] MEDS ORDERED: METHYLPREDNISOLONE 4 MG TAB DOSE PACK(DAY 1-2 2100) PO SCH (21:00)
[2017-10-29 05:18] LABS: BASOPHILS # (AUTO) 0.02 10*3/UL; BASOPHILS % (AUTO) 0.1 % (0-1); EOSINOPHILS # (AUTO) 0 10*3/UL; EOSINOPHILS % (AUTO) 0 % (0-8); Hemoglobin [HGB] 13.2 g/dL (12.0-16.0); LYMPHOCYTES # (AUTO) 1.58 10*3/uL; MEAN CORPUSCULAR HEMOGLOBIN 30.9 PG (27-31); MEAN CORPUSCULAR VOLUME 93.7 FL (81-99); MEAN PLATELET VOLUME 11.3 FL (7.4-12.2); MONOCYTES % (AUTO) 5.5 % (5-15); NEUTROPHILS # (AUTO) 11.98 10*3/UL; NEUTROPHILS % (AUTO) 83.2 % (50-80); RED BLOOD COUNT 4.27 10^6/uL (4.20-5.40)
[2017-10-29 05:30] LABS: BLOOD UREA NITROGEN 18 mg/dL (7-22); PLATELET MORPHOLOGY COMMENT NORMAL MORPHOLOGY (NORM); RBC MORPHOLOGY COMMENT NORMAL MORPHOLOGY (NORM); SERUM ALBUMIN 4.1 g/dL (3.5-4.8); Uric Acid 8.5 mg/dl (2.5-7.5); WBC MORPHOLOGY COMMENT NORMAL MORPHOLOGY (NORM)
[2017-10-29 06:30] LABS: Erythrocyte Sediment Rate 92 MM/HR (0-20)
[2017-10-29 06:37] VITALS: RESP 18
[2017-10-29] MEDS ORDERED: METHYLPREDNISOLONE 4 MG TAB DOSE PACK(DAY 2-6 0700) PO SCH (07:00)
[2017-10-29] MEDS ORDERED: ATENOLOL 25 MG TABLET PO SCH (09:00)
[2017-10-29] MEDS ORDERED: predniSONE Tab 20 MG TAB PO SCH (09:00)
[2017-10-29] MEDS ORDERED: Colchicine Tab 0.6 MG TABLET PO SCH (09:00)
[2017-10-29] MEDS: Multivitamin Tab 1 TAB PO SCH (10:05)
[2017-10-29] MEDS: ASPIRIN 325 MG TABLET PO SCH (10:05)
[2017-10-29] MEDS: DOCUSATE 100 MG CAPSULE PO SCH (10:05)
[2017-10-29] MEDS: NYSTATIN 15 GM POWDER TOPICAL SCH (10:05)
[2017-10-29] MEDS: ERYTHROMYCIN BASE 1 GM EYE OINT EACH EYE SCH (10:06)
--- NOTE | 2017-10-29 10:17 | PT.PROG ---
Progress Note Progress Note: S. Patient stated that she enjoys coming to the therapy gym. She reports she is feeling good this morning. O. Patient ambulated 175 feet to the therapy gym where she performed seated exercises in the form of; long arc quads, marches, ball squeezes, resisted knee flexion, clam shells, heel toe raises, all x 10 bilaterally with red thera bands , Patient performed sit to stands 2x5, then used the nu-step x 8 minutes, Patient ambulated 175 feet back to her room where she was left in chair with alarm and call light. A. Patient tolerated therapy well this morning, she continues to be confused and require verbal cues to stay on task and complete all exercises, she requires min assist with balance and ambulation, She would benefit from continued therapy to increase strength, endurance and balance. P. Continue POC.
--- NOTE | 2017-10-29 12:11 | ORTHO.PROG ---
Last Taken Vital Signs: Vital Signs - Last Taken Temperature 98.2 F 10/29/17 06:33 Pulse Rate 94 10/29/17 07:00 Respiratory Rate 18 10/29/17 07:00 Blood Pressure 159/89 10/29/17 06:33 Pulse Ox 96 10/29/17 06:33 Subjective: Patient states that her right hand is feeling better today less pain in the wrist and better utilization of it. Therapy also concurs. Objective: Examination shows that the patient has a little bit more redness that is cold last over the ulnar aspect of the hand and wrist region. Other is less swelling today she now today has full extension of the digits to make a light fist and a wrist motion is reasonable she has a little bit more edema today of the hand of the redness is a little softer than the localized area. Sensory exam unchanged. Laboratory Results 10/29/17 10/29/17 10/29/17 Range/Units 04:30 04:30 04:30 WBC 14.43 H (4.8-10.8) 10^3/uL RBC 4.27 (4.20-5.40) 10^6/uL Hgb 13.2 (12.0-16.0) g/dL Hct 40.0 (37.0-47.0) % MCV 93.7 (81-99) FL MCH 30.9 (27-31) PG MCHC 33.0 (33-37) g/dL RDW Std Deviation 43.5 (39-50) fL RDW Coeff of Danny 12.9 (11.5-14.5) % Plt Count 267 (140-350) 10*3/uL MPV 11.3 (7.4-12.2) FL Immature Gran % (Auto) 0.3 (0-5) % Neut % (Auto) 83.2 H (50-80) % Lymph % (Auto) 10.9 (10-50) % [place] % (Auto) 5.5 (5-15) % Eos % (Auto) 0 (0-8) % Baso % (Auto) 0.1 (0-1) % Immature Gran # (Auto) 0.05 10*3/UL Neut # (Auto) 11.98 10*3/UL Lymph # (Auto) 1.58 10*3/uL [place] # (Auto) 0.80 (0.3-0.8) 10*3/UL Eos # (Auto) 0 10*3/UL Baso # (Auto) 0.02 10*3/UL WBC Morphology Comment Normal morphology (NORM) Plt Morphology Comment Normal morphology (NORM) RBC Morph Comment Normal morphology (NORM) ESR 92 H (0-20) MM/HR Sodium 144 (135-145) meq/L Potassium 4.1 (3.8-5.2) meq/L Chloride 105 (98-112) meq/L Carbon Dioxide 25 (23-33) meq/L Anion Gap 14 (5-20) BUN 18 (7-22) mg/dL Creatinine 0.9 (0.50-1.20) mg/dL BUN/Creatinine Ratio 20.00 (6-20) Glucose 167 H (78-110) mg/dL Calculated Osmolality 303.0 H (267-292) mOsm/kg Uric Acid 8.5 H (2.5-7.5) mg/dl Calcium 9.6 (8.7-10.7) mg/dL Total Bilirubin 0.4 (0.3-1.2) mg/dL AST 33 (8-39) IU/L ALT 18 (9-52) IU/L Alkaline Phosphatase 75 (38-126) IU/L C-Reactive Protein 6.4 H (0.0-0.9) mg/dL Total Protein 7.2 (6.1-8.0) g/dL Albumin 4.1 (3.5-4.8) g/dL Globulin 3.2 (2.50-4.10) g/dL Albumin/Globulin Ratio 1.20 L (1.3-2.0) mg/g TSH 1.06 (0.2700-4.2000) uIU/mL Free T4 1.44 (0.93-1.71) ng/dL Vital Signs (24 hrs) Temp Pulse Pulse Resp BP BP Pulse Ox 10/29/17 07:00 80 94 18 10/29/17 06:33 98.2 F 94 18 159/89 96 10/29/17 04:44 97 10/29/17 04:33 97.5 F 84 161/80 96 10/29/17 01:00 98.3 F 78 20 183/80 97 10/28/17 20:46 97.8 F 74 20 160/74 96 10/28/17 19:00 80 74 24 10/28/17 17:00 98.1 F 124 H 30 H 187/86 93 Assessment: Right ulnar-sided wrist 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 Plan: I really think the patient's symptoms are secondary to uric acid deposition. Patient was started on some prednisone and seems to be feeling better today. Her uric acid was high. I think at this point in time treatment of this will likely help resolve her symptoms. We will obviously follow her very closely to make sure that we see no evidence of an infectious process. She does have a high white count and sedimentation rate and C-reactive protein but I think this is secondary to the uric acid. She has a well-documented history of gout in the past and I think that's what we are seeing today.
[2017-10-29 12:25] VITALS: BP 162/90; TEMP 97.1; O2SAT 90
--- NOTE | 2017-10-29 13:24 | DCSUMMARY ---
Hospitalization Summary Admit Date: 10/25/2017 Discharge Date: 10/29/17 Primary Diagnosis:: altered mental status, multifactorial Secondary Diagnosis:: Dementia, Alzheimer's, complicated by delirium but improved at time of discharge Gouty arthropathy, acute flare on right wrist, no fluid collection on MRI scan. Acute on chronic kidney disease, resolved. 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 Hypertension Diet-controlled diabetes. Hospital Course: This very pleasant 82-year-old female that was brought in on acute altered mental status state. We stopped several medications that are known to cause central nervous system interactions, and the patient improved to some degree. As the hospital stay progressed, we ended up realizing that the patient had underlying Alzheimer's dementia. We got with several issues as well. Her dementia is probably at her baseline, and her mental status is improving each day. Patient had urinary retention that was acute. I think this is probably related to Vesicare. We had Li catheter in place to decompress, and on voiding trial yesterday, the patient required straight catheterization once and then was able to void over 700 mL by herself without any post void residual. The patient has spinal stenosis and I wonder a little bit about neurogenic bladder possible pelvic organ prolapse, but our plan at this point is to readdress that if the patient develops any further episodes of acute urinary retention off of Vesicare. Removal of the catheter and resolution of her acute urinary retention , helped her mental status improved. Hypertension escalated during the hospital stay, but we had stopped lisinopril which could've been contributing to the acute renal failure, and resumed atenolol a couple of days into the hospital stay. Her blood pressures have improved. On atenolol and Norvasc now. We did workup and ruled out any stroke. The patient developed an acute gouty arthropathy attack in the right wrist. I did consult orthopedics. At this time we'll treated as an acute cardiac neuropathy. I thought that there might of been a fluid collection and an MRI scan of the right wrist rule that out. This does not appear to be consistent with infection. Inflammatory markers are up which is very normal in the setting of acute gouty arthropathy, and uric acid is up as well. We will treat with prednisone for upwards of 5-7 days and then start allopurinol for gouty arthropathy flare prevention. PT and OT worked with the patient during the hospital stay. She may fairly well , but may need some additional assistance from physical therapy and occupational therapy for strengthening, particularly with this acute gouty flare , and will also allow us chance to work with the patient's daughter, is to try to move in to take care of her mother in the setting of advanced Alzheimer's dementia. Complaints of chest pain or shortness breath today. Right wrist is better today. Assessment and Plan: 1. As per discharge assessments noted 2. Disposition: Patient is discharged to the swing bed 3. Condition on discharge, stable and improved. 4. Diet: regular diet 5. Activities: resume normal activities with the assistance of PT and OT 6. Follow-Up: 1. Hospital service will continue to service patient's primary in the hospital 7. Medications at the Time of Discharge: Active Medications Generic Name Dose Route Start Last Admin Trade Name Freq PRN Reason Stop Dose Admin Acetaminophen 650 mg 10/28/17 14:49 10/28/17 15:05 Tylenol PO 650 mg Q6H PRN Administration Pain Hydrocodone Bitart/Acetaminophen 1 tab 10/28/17 15:00 10/28/17 15:25 [place] 5/325 Tab PO 1 tab Q8H PRN Administration Pain Amlodipine Besylate 10 mg 10/29/17 09:00 10/29/17 10:05 Norvasc PO 10 mg DAILY AIDA Administration Aspirin 325 mg 10/26/17 09:00 10/29/17 10:05 Aspirin PO 325 mg DAILY AIDA Administration Atenolol 25 mg 10/29/17 09:00 10/29/17 10:05 Tenormin PO 25 mg DAILY AIDA Administration Dextrose 30 - 40 ml 10/25/17 16:21 Dextrose 50% Inj IVP Q15M PRN BG < 70 unable to take oral Docusate Sodium 100 mg 10/25/17 21:00 10/29/17 10:05 Colace PO 100 mg BID AIDA Administration Erythromycin 1 applic 10/26/17 21:00 10/29/17 10:06 Ilotycin Ophth Oint 0.5% EACH EYE 1 applic BID AIDA Administration Glucose 15 - 20 gm 10/25/17 16:21 Insta-Glucose Gel PO Q15M PRN BG < 70 Labetalol HCl 10 mg 10/25/17 15:24 Normodyne Inj IVP Q4H PRN SBP > 220 Lidocaine HCl 0.5 ml 10/25/17 15:24 Lidocaine Buffered Inj SUBD ONCE PRN IV Starts Lidocaine HCl 10 ml 10/26/17 20:12 Xylocaine Uro-Ject 2% TOPICAL ONCE PRN Discomfort catheter insertion Lorazepam 1 mg 10/28/17 15:21 Ativan Inj IVP ONCE PRN agitation with MRI Multivitamins Therapeutic 1 tab 10/26/17 09:00 10/29/17 10:05 Thera Tab PO 1 tab DAILY AIDA Administration Nystatin 1 applic 10/28/17 21:00 10/29/17 10:05 Mycostatin Powder TOPICAL 1 applic BID AIDA Administration Prednisone 20 mg 10/29/17 09:00 10/29/17 10:05 Deltasone Tab PO 20 mg DAILY AIDA Administration 8. Time, care, counseling and coordination of care for this discharge is greater than 30 minutes. Exam - Vitals Vital Signs: Vital Signs Temperature 97.1 F Temperature Source Temporal Artery Scan Pulse Rate [Apical] 80 Pulse Rate [Pulse Oximeter] 96 Pulse Rate 98 Respiratory Rate 18 Blood Pressure [Left Radial 159/89 Artery] Blood Pressure [Right Arm] 181/62 Blood Pressure [Left Arm] 162/90 Pulse Ox 90 Oxygen Flow Rate 2 Oxygen Delivery Method Room Air Height 5 ft 6 in Weight 197 lb 2 oz - General General Appearance: No Acute Distress, Cooperative - Eye Eye Exam: POSITIVE: No Scleral Icterus - ENT ENT Exam: POSITIVE: Mucous Membranes Moist - Respiratory Respiratory Exam: POSITIVE: Clear to Auscultation - Bilaterally, Breathing Non Labored - Cardiovascular Cardiovascular Exam: POSITIVE: RRR, No Murmur, No Clicks, No Gallops, No Rubs, No JVD - GI/Abdominal GI/Abdominal Exam: POSITIVE: Normal Bowel Sounds, Non Tender, Non Distended, Soft - Extremities Extremities Exam: POSITIVE: No Clubbing Present, No Edema Present, No Cyanosis Present - Neurological Neurological Exam: POSITIVE: Alert, No Facial Droop, Speech Intact / Clear, Moves All Extremities Equally Data Peritnent Studies: 10/25/17 10/26/17 10/26/17 12:30 04:59 04:59 WBC Hgb Hct Plt Count ESR Sodium Potassium Chloride Carbon Dioxide Anion Gap BUN Creatinine Glucose Hemoglobin A1c 5.28 Lactic Acid 1.4 Uric Acid Calcium Total Bilirubin AST ALT Alkaline Phosphatase C-Reactive Protein Total Protein Albumin Globulin Albumin/Globulin Ratio Triglycerides 147 Cholesterol 109 L LDL Cholesterol, Calc 43.600 VLDL Cholesterol 29 HDL Cholesterol 36 L Cholesterol/HDL Ratio 3.02 TSH Free T4 10/29/17 10/29/17 10/29/17 04:30 04:30 04:30 WBC 14.43 H Hgb 13.2 Hct 40.0 Plt Count 267 ESR 92 H Sodium 144 Potassium 4.1 Chloride 105 Carbon Dioxide 25 Anion Gap 14 BUN 18 Creatinine 0.9 Glucose 167 H Hemoglobin A1c Lactic Acid Uric Acid 8.5 H Calcium 9.6 Total Bilirubin 0.4 AST 33 ALT 18 Alkaline Phosphatase 75 C-Reactive Protein 6.4 H Total Protein 7.2 Albumin 4.1 Globulin 3.2 Albumin/Globulin Ratio 1.20 L Triglycerides Cholesterol LDL Cholesterol, Calc VLDL Cholesterol HDL Cholesterol Cholesterol/HDL Ratio TSH 1.06 Free T4 1.44 Patient Problems - Patient Problem List (1) Altered mental status Current Visit: Yes Status: Resolved Code(s): R41.82 - Altered mental status , unspecified Qualifiers: Altered mental status type: delirium Qualified Code(s): R41.0 - Disorientation, unspecified Category: Medical (2) Urinary retention with incomplete bladder emptying Current Visit: Yes Status: Acute Code(s): R33.9 - Retention of urine, unspecified Category: Medical (3) Dementia Current Visit: Yes Status: Acute Code(s): F03.90 - Unspecified dementia without behavioral disturbance Qualifiers: Dementia type: Alzheimer's disease Alzheimer's disease onset: late-onset Dementia behavioral disturbance: without behavioral disturbance Qualified Code (s): G30.1 - Alzheimer's disease with late onset; F02.80 - Dementia in other diseases classified elsewhere without behavioral disturbance Category: Medical (4) Hallucinations Current Visit: Yes Status: Acute Code(s): R44.3 - Hallucinations, unspecified Category: Medical (5) Diabetic neuropathy Current Visit: Yes Status: Chronic Onset Date: 06/04/13 Code(s): E11.40 - Type 2 diabetes mellitus with diabetic neuropathy, unspecified Qualifiers: Diabetes mellitus type: type 2 Diabetes mellitus complication detail: diabetic polyneuropathy Qualified Code(s): E11.42 - Type 2 diabetes mellitus with diabetic polyneuropathy Category: Medical (6) Dyslipidemia (high LDL; low HDL) Current Visit: Yes Status: Chronic Onset Date: 01/15/13 Code(s): E78.4 - Other hyperlipidemia Category: Medical (7) Diabetes mellitus type 2 in nonobese Current Visit: Yes Status: Chronic Onset Date: 01/08/12 Code(s): E11.9 - Type 2 diabetes mellitus without complications Category: Medical (8) Benign essential hypertension Current Visit: Yes Status: Chronic Onset Date: 01/15/13 Code(s): I10 - Essential (primary) hypertension Category: Medical (9) Spinal stenosis Current Visit: Yes Status: Acute Code(s): M48.00 - Spinal stenosis, site unspecified Qualifiers: Spinal region: lumbar Neurogenic claudication status: unspecified Qualified Code(s): M48.061 - Spinal stenosis, lumbar region without neurogenic claudication Category: Medical (10) Hypertension Current Visit: Yes Status: Acute Code(s): I10 - Essential (primary) hypertension Qualifiers: Hypertension type: essential hypertension Qualified Code(s): I10 - Essential (primary) hypertension Category: Medical (11) Gouty arthropathy Current Visit: Yes Status: Acute Code(s): M10.9 - Gout, unspecified Category: Medical
[2017-10-30] MEDS ORDERED: METHYLPREDNISOLONE 4 MG TAB DOSE PACK(DAY 3-5 2100) PO SCH (21:00)
== END 2017-10-29 13:44 | DRG 948 ==
LOC: ER 11:30 → MED/SURG 15:18
PROVIDERS: ADMIT Family Medicine; ATTEND Family Medicine

== ENCOUNTER 2018-07-17 14:35 | Observation (INO) ==
[2018-07-17] MEDS ORDERED: Sodium Chloride 0.9% 1,000 ML PRIMARY IV ONE (15:10)
[2018-07-17] MEDS ORDERED: Acetaminophen 1000mg Inj 1,000 MG/100 ML VIAL IV PRN (15:10)
[2018-07-17] MEDS ORDERED: ONDANSETRON 4 MG/2 ML VIAL IVP ONE (15:10)
--- NOTE | 2018-07-17 15:12 | PDOC ---
Dyspnea HPI - General Chief Complaint: Respiratory Complaint Stated Complaint: SOB Date Seen by Provider: 07/17/18 Time Seen by Provider: 15:05 Source: POSITIVE: Patient, EMS Exam Limitations: POSITIVE: No limitations Treatment Prior to Arrival: REPORTS: Oxygen Nurse's Notes Reviewed & Considered: Yes EMS Report Reviewed & Considered: Verbal - History of Present Illness Initial Comments: This is a well-developed, well-nourished, 83-year-old female who cannot articulate why she is here. Patient was brought in via EMS with shortness of breath, cough, and possible fevers. EMS reports that her house was 85 and that she was hot to the touch. Further review of systems unavailable because the patient's confusion. Body Location Affected: REPORTS: Chest Timing: REPORTS: Unknown Duration: Unknown Severity: Moderate Initiating Event: REPORTS: Upper Respiratory Illness Context: REPORTS: Rest Exacerbated By: REPORTS: Exertion, Coughing Associated Symptoms: REPORTS: Fever, Productive Cough Similar Symptoms Previously: No Recently seen/treated/hospitalized: No Any Prior Injuries Related to Current Complaint?: No - Patient Home Medications Home Medications: Home Medications RX: Aspirin 81 mg PO DAILY 01/30/16 RX: Calcium 500 mg PO DAILY 01/30/16 RX: Docusate Sodium [Stool Softener] 100 mg PO BID 01/30/16 RX: Multivits W-Fe,Other Min [[employer] Senior] 1 ea PO DAILY 01/30/16 RX: Melatonin 10 mg PO QHS 12/27/16 blood sugar diagnostic strips 1 strip MISCELLANEOUS TID #100 strip 06/10/17 atenolol 25 mg tablet 1 tab PO DAILY #30 tab 11/15/17 allopurinol 100 mg tablet 100 mg PO QDAY #30 tab 11/28/17 amlodipine 10 mg tablet 10 mg PO QDAY #30 tab 11/28/17 gabapentin 100 mg capsule 100 mg PO TID #90 cap 11/28/17 solifenacin 5 mg tablet 5 mg PO BID #180 tab 01/27/18 omeprazole 20 mg capsule,delayed release See Rx Instructions .ROUTE .COMPLEX #30 capsule 04/25/18 meloxicam 7.5 mg tablet 7.5 mg PO QDAY #30 tab 05/16/18 RX: Oseltamivir Phosphate [Tamiflu] 30 mg PO BID susp 07/20/18 - Patient Allergies Allergies/Adverse Reactions: Allergies Allergy/AdvReac Type Severity Reaction Status Date / Time metoclopramide HCl Allergy Severe SHORTNESS Verified 07/17/18 14:44 [From Reglan] OF BREATH pregabalin [From Lyrica] Allergy Intermediate Nausea, Verified 05/16/18 11:25 confusion, dizziness, lightheaded Past Medical History - heen HEENT History: Cataracts, Hard of Hearing, Dentures/Partials Additional HEENT History: WEARS GLASSES Cardiovascular History: Hypertension, Hyperlipidemia Additional Cardiovasular History: PALPITATIONS Respiratory History: Sleep Apnea, Home Oxygen Use, Home CPAP Use Additional Respiratory History: USES OXYGEN AT NIGHT WITH CPAP 2L Gastrointestinal History: Denies History Genitourinary History: Denies History Additional Genitourinary History: diabetic nephropathy with mildly elevated creatinine. Endocrine History: Type 2 Diabetes (oral) Additional Endocrine History: HAS NOT HAD GLIPIZIDE IN [address] YASSINE ZAPATA Musculoskeletal History: Arthritis, Back Pain, Muscle Weakness, Physical Limitation, Other (please comment) Prosthesis or Implant: No Additional Musculoskeletal History: PERIPHERAL NEUROPATHY Neurological History: Other (please comment) Additional Neurological History: Restless legs syndrome/ tremors that she attributes to metaclopramide therapy Blood Disorders: Denies History Psychiatric History: Depression History of Sexually Transmitted Diseases: No Female Reproductive History: Hysterectomy Obstetrical History: Denies History Cancer History: Denies History In Past Year Been Physically Harmed or Verbally Threatened: No History of MDRO: No History of Other Communicable Diseases: No Tobacco Use: Never Smoker Alcohol Use: None In the Past 12 Months, Have Used or Abuse Any Substance: None Previous Surgical History: Yes Type / Date of Surgery: BLADDER SUSPENSION; CHOLECYSTECTOMY; HYST; LUMBAR FUSION; CATARACT 07/21/12, RANJANA L3-4 10/16/2017 Anesthesia Reactions: No Malignant Hyperthermia: No Significant Family History: Heart disease, Cancer, COPD, Diabetes, Hypertension ROS - Limitations ROS Limitations: Clinical Condition (Patient is confused and further review of systems is unavailable.) Dyspnea Physical Exam - General Appearance General Appearance: REPORTS: Cooperative, No Acute Distress, No Evidence of Trauma - HEENT HEENT: POSITIVE: Head Inspection Nml, Eyes Inspection Nml, Ears Inspection Nml, Nose Inspection Nml, Oral/Dental Inspect. Nml, Pharynx Inspect. Nml, PERRL, EOMI - Neck Neck: REPORTS: Normal Inspection - Respiratory Respiratory: REPORTS: No Respiratory Distress, No Pleuritic Chest Pain, Speaks Full Sentences, No Pain on Inspiration, Wheezes - Cardiovascular Cardiovascular: REPORTS: Regular Rate and Rhythm, Heart Sounds Normal, Strong Pulses, No Murmur, No Gallop, No Friction Rub, No JVD Peripheral Pulses: Radial (R): 4+ - Abdomen Abdomen: Soft: (All Quadrants), Normal Bowel Sounds: (All Quadrants), Denies Tenderness: (All Quadrants), No Splenomegaly: (All Quadrants), No Hepatomegaly: (All Quadrants), No Guarding: (All Quadrants), No Rebound: (All Quadrants), No Palpable Pulse: (All Quadrants), No Palpabale Mass: (All Quadrants), No Distention: (All Quadrants), No Rigidity: (All Quadrants) - Skin Skin: REPORTS: Intact, Normal For Race, Warm, Dry, No Rash - Extremities Extremity: Non-Tender: (All Extremities), Normal ROM: (All Extremities), Normal Inspection: (All Extremities), Pelvis Stable: (All Extremities) - Neurological / Psychological Neurological: POSITIVE: Affect Apporpriate, Oriented X3, Motor Normal, Sensation Normal Dyspnea Progress - Results Reviewed by me Xrays/CTs/US Reviewed by me: Yes Discussed with Radiologist: Yes Lab Results Reviewed by Me: Yes CBC and BMP: 07/17/18 14:55 07/19/18 04:20 Lab Results:: Laboratory Results 07/17/18 07/17/18 07/17/18 14:48 14:48 14:48 WBC RBC Hgb Hct MCV MCH MCHC RDW Std Deviation RDW Coeff of Danny Plt Count MPV Immature Gran % (Auto) Neut % (Auto) Lymph % (Auto) [place] % (Auto) Eos % (Auto) Baso % (Auto) Immature Gran # (Auto) Neut # (Auto) Lymph # (Auto) [place] # (Auto) Eos # (Auto) Baso # (Auto) WBC Morphology Comment Plt Morphology Comment RBC Morph Comment ESR VBG pH VBG pCO2 VBG HCO3 VBG Base Excess Sodium 139 Potassium 4.2 Chloride 102 Carbon Dioxide 27 Anion Gap 10 BUN 27 H Creatinine 1.4 H Estimated GFR [employer] Machin[employer] BUN/Creatinine Ratio 19.28 Glucose 106 Calculated Osmolality 292.0 Lactic Acid Calcium 9.1 Magnesium 1.6 Total Bilirubin 0.3 AST 56 H ALT 37 Alkaline Phosphatase 70 CK-MB (CK-2) 0.79 Troponin I Handheld 0.010 C-Reactive Protein 7.7 H NT-Pro-B Natriuret Pep 1450 H Total Protein 6.8 Albumin 3.8 Globulin 3.0 Albumin/Globulin Ratio 1.20 L Group A Strep Screen 07/17/18 07/17/18 07/17/18 14:55 14:55 15:24 WBC 6.60 RBC 4.25 Hgb 13.5 Hct 40.2 MCV 94.6 MCH 31.8 H MCHC 33.6 RDW Std Deviation 47.4 RDW Coeff of Danny 14.1 Plt Count 161 MPV 11.1 Immature Gran % (Auto) 0.2 Neut % (Auto) 64.4 Lymph % (Auto) 21.2 [place] % (Auto) 11.2 Eos % (Auto) 2.4 Baso % (Auto) 0.6 Immature Gran # (Auto) 0.01 Neut # (Auto) 4.25 Lymph # (Auto) 1.40 [place] # (Auto) 0.74 Eos # (Auto) 0.16 Baso # (Auto) 0.04 WBC Morphology Comment Normal morphology Plt Morphology Comment Normal morphology RBC Morph Comment Normal morphology ESR 22 H VBG pH VBG pCO2 VBG HCO3 VBG Base Excess Sodium Potassium Chloride Carbon Dioxide Anion Gap BUN Creatinine Estimated GFR BUN/Creatinine Ratio Glucose Calculated Osmolality Lactic Acid 1.1 Calcium Magnesium Total Bilirubin AST ALT Alkaline Phosphatase CK-MB (CK-2) Troponin I Handheld C-Reactive Protein NT-Pro-B Natriuret Pep Total Protein Albumin Globulin Albumin/Globulin Ratio Group A Strep Screen Negative 07/17/18 15:31 WBC RBC Hgb Hct MCV MCH MCHC RDW Std Deviation RDW Coeff of Danny Plt Count MPV Immature Gran % (Auto) Neut % (Auto) Lymph % (Auto) [place] % (Auto) Eos % (Auto) Baso % (Auto) Immature Gran # (Auto) Neut # (Auto) Lymph # (Auto) [place] # (Auto) Eos # (Auto) Baso # (Auto) WBC Morphology Comment Plt Morphology Comment RBC Morph Comment ESR VBG pH 7.41 VBG pCO2 44 L VBG HCO3 28 H VBG Base Excess 3 H Sodium Potassium Chloride Carbon Dioxide Anion Gap BUN Creatinine Estimated GFR BUN/Creatinine Ratio Glucose Calculated Osmolality Lactic Acid Calcium Magnesium Total Bilirubin AST ALT Alkaline Phosphatase CK-MB (CK-2) Troponin I Handheld C-Reactive Protein NT-Pro-B Natriuret Pep Total Protein Albumin Globulin Albumin/Globulin Ratio Group A Strep Screen EKG Interpreted/Reviewed By Me:: Yes (sinus rhythm, 75 bpm, right bundle branch block present) EKG Interpretation:: POSITIVE: Normal Sinus Rhythm - Patient's Progress Pain Medication Addressed: POSITIVE: Yes Re-Examine Time: 16:52 Status: POSITIVE: Improved MDM / ED Course: Patient was evaluated, an IV started, blood drawn and sent to the lab for studies, chest x-ray and EKG were obtained. Findings: CBC shows white count hemoglobin and hematocrit and platelets are normal. ESR is 22 and CRP is 7.7. Blood gases show pH of 7.41, PCO2 44, bicarbonate 28, base excess of 3. CMP shows a BUN of 27, creatinine 1.4, AST of 56. Magnesium is 1.6. BNP is 1450. CK-MB is 0.79 and troponin is 0.010. EKG, per my interpretation, shows sinus rhythm with a rate of 75 beats a minute and a right bundle branch block. Strep swab is negative. Influenza A is positive. Chest x-ray shows no acute cardiopulmonary decompensation. Assessment: Influenza a with hypoxia. Plan: Patient receives Tamiflu, dexamethasone, and is admitted by the [facility]. Air Movement: POSITIVE: Poor - Consult Consulting MD will see pt:: [place] [facility] [place] Counseled: POSITIVE: Patient, Family, RE: Lab Results, RE: Radiology Results, RE: DX, RE: Need for F/U Patient Care Time - Estimated PCT Patient Care Time (In Minutes): 45 Vital Signs - VS Reviewed Vital Signs Reviewed: Yes Discharge Clinical Impression: Influenza A, Hypoxia Discharge Disposition: Admit to Observation Condition: Stable Date Decision to Admit to Inpatient: 07/17/18 Time Decision to Admit to Inpatient: 16:55
[2018-07-17 15:15] LABS: BASOPHILS # (AUTO) 0.04 10*3/UL; BASOPHILS % (AUTO) 0.6 % (0-1); EOSINOPHILS # (AUTO) 0.16 10*3/UL; EOSINOPHILS % (AUTO) 2.4 % (0-8); Hematocrit [HCT] 40.2 % (37.0-47.0); Hemoglobin [HGB] 13.5 g/dL (12.0-16.0); MEAN CORPUSCULAR HEMOGLOBIN 31.8 PG (27-31); MEAN CORPUSCULAR HGB CONC 33.6 g/dL (33-37); MEAN CORPUSCULAR VOLUME 94.6 FL (81-99); MEAN PLATELET VOLUME 11.1 FL (7.4-12.2); MONOCYTES # (AUTO) 0.74 10*3/UL (0.3-0.8); MONOCYTES % (AUTO) 11.2 % (5-15); NEUTROPHILS # (AUTO) 4.25 10*3/UL; NEUTROPHILS % (AUTO) 64.4 % (50-80); RED BLOOD COUNT 4.25 10^6/uL (4.20-5.40)
[2018-07-17 15:16] LABS: PLATELET MORPHOLOGY COMMENT NORMAL MORPHOLOGY (NORM); RBC MORPHOLOGY COMMENT NORMAL MORPHOLOGY (NORM); WBC MORPHOLOGY COMMENT NORMAL MORPHOLOGY (NORM)
[2018-07-17 15:25] LABS: BLOOD UREA NITROGEN 27 mg/dL (7-22); BUN/CREATININE RATIO 19.28 (6-20); SERUM ALBUMIN 3.8 g/dL (3.5-4.8)
[2018-07-17 15:59] LABS: Erythrocyte Sediment Rate 22 MM/HR (0-20)
--- NOTE | 2018-07-17 16:02 | DI ---
PA /LATERAL CHEST, 07/17/2018 3:10 PM : Clinical History: Shortness of breath. Previous Exam: None at this facility. Soft Tissues: No acute soft tissue abnormality. Bones: Old compression fracture of approximately T12 with osteoporosis indicating severe osteoporosis . Heart: Mild cardiomegaly without CHF. Lungs: No infiltrates. Effusion(s): None. Mediastinum: Normal mediastinum. Nodules: No pulmonary nodules. Readin. No acute infiltrate or effusion. 2. Mild cardiomegaly without CHF. 3. Severe osteoporosis.
--- NOTE | 2018-07-17 16:35 | EKG ---
[address] [address] Measurements Intervals [place] Rate: 75 P: UT: 0 QRS: -59 QRSD: 143 T: 70 QT: 430 QTc: 459 Interpretive Statements PROBABLE SINUS RHYTHM WITH BASELINE ARTIFACT. APPARENT P WAVES IN V3 RIGHT BUNDLE BRANCH BLOCK LEFT ANTERIOR FASCICULAR BLOCK Compared to ECG 10/25/2017 13:46:13 Right bundle-branch block now present Left anterior fascicular block now present ST (T wave) deviation no longer present Ctriteria for myocardial infarct finding no longer present Electronically Signed On 07-17-18 16:49:17 MST by Laurent Jacques [email or web address]
[2018-07-17 16:41] LABS: VENOUS PH 7.41 (7.32-7.42)
[2018-07-17] MEDS ORDERED: OSELTAMIVIR PHOSPHATE 75 MG CAPSULE PO ONE (16:54)
[2018-07-17] MEDS ORDERED: DEXAMETHASONE PF 10 MG/1 ML VIAL IVP ONE (16:54)
[2018-07-17] MEDS ORDERED: IPRATROPIUM/ALBUTEROL SULFATE 3 ML NEB NEB ONE (17:14)
--- NOTE | 2018-07-17 20:34 | PDOC ---
HPI - History of Present Illness Date of Service: 07/17/18 Time of Service: 20:00 Chief Complaint: Cough of 3-4 days duration, shortness of breath today History of Present Illness: This is an 83 years old female with medical history significant for history of hypertension, diabetes on no medication, history of gout, history of diabetic neuropathy and history of sleep apnea on oxygen at night who is been sick for the last 3-4 days with cough no significant phlegm production, it was noted that she was more short of breath today she lives at an assisted living and they were concerned about her so they called the medics and they brought her here. Evaluation in the ER revealed hypoxia and she was positive for influenza A so she was admitted. Currently she feels somewhat better denying shortness of breath still have the cough. Past Medical History Medical History: 1. 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 2. Diabetes mellitus type II, well controlled. 3. Hypercholesterolemia. 4. Obstructive sleep apnea. 5. History of a tremor, secondary to Reglan. 6. Depression. 7. Hypertension. 8. Admission back in October 2017 for delirium secondary to medications Surgical History: Bladder suspension. Lumbar fusion in the past and apparently some sort of hardware removal per the patient's daughter. Status post cholecystectomy. Status post hysterectomy. Status post laser cataract surgery Pertinent Family History: Mother from cancer, she stated that she did not know why her father passed on Past Social History: Has 8 children. Does not smoke or drink. Lives alone at the [facility]. Tobacco Use: Never Smoker In the Past 12 Months, Have Used or Abuse Any of the Following Substance: None Medication / Allergies Home Medications: Home Medications Medication Instructions Recorded Confirmed Type Aspirin 81 mg PO DAILY 01/30/16 07/17/18 History Calcium 500 mg PO DAILY 01/30/16 07/17/18 History Docusate Sodium [Stool Softener] 100 mg PO BID 01/30/16 07/17/18 History Multivits W-Fe,Other Min [Century 1 ea PO DAILY 01/30/16 07/17/18 History Senior] Melatonin 10 mg PO QHS 12/27/16 07/17/18 History blood sugar diagnostic strips 1 strip MISCELLANEOUS TID #100 06/10/17 07/17/18 Rx strip atenolol 25 mg tablet 1 tab PO DAILY #30 tab 11/15/17 07/17/18 Rx allopurinol 100 mg tablet 100 mg PO QDAY #30 tab 11/28/17 07/17/18 Rx amlodipine 10 mg tablet 10 mg PO QDAY #30 tab 11/28/17 07/17/18 Rx gabapentin 100 mg capsule 100 mg PO TID #90 cap 11/28/17 07/17/18 Rx solifenacin 5 mg tablet 5 mg PO BID #180 tab 01/27/18 07/17/18 Rx omeprazole 20 mg capsule,delayed See Rx Instructions .ROUTE 04/25/18 07/17/18 Rx release .COMPLEX #30 capsule meloxicam 7.5 mg tablet 7.5 mg PO QDAY #30 tab 05/16/18 07/17/18 Rx metFORMIN Tab [Glucophage Tab] 500 mg PO BID 07/17/18 07/17/18 History Allergies/Adverse Reactions: Allergies Allergy/AdvReac Type Severity Reaction Status Date / Time metoclopramide HCl Allergy Severe SHORTNESS Verified 07/17/18 14:44 [From Reglan] OF BREATH pregabalin [From Lyrica] Allergy Intermediate Nausea, Verified 05/16/18 11:25 confusion, dizziness, lightheaded Review of Systems - Review of Systems All Systems: Reviewed & No Additional Complaints Except as Stated Exam - Vitals Vital Signs: Vital Signs Temperature 99.5 F Temperature Source Temporal Artery Scan Pulse Rate [Pulse Oximeter] 75 Pulse Rate 69 Respiratory Rate 20 Blood Pressure [Left Arm] 124/71 Blood Pressure 144/73 Pulse Ox 95 Oxygen Flow Rate 2 Oxygen Delivery Method Nasal Cannula Height 5 ft 7 in Weight 206 lb 6 oz - General General Appearance: No Acute Distress, Cooperative, Obese - Head Head Exam: Normal Inspection - Eye Eye Exam: POSITIVE: Normal Appearance - ENT ENT Exam: POSITIVE: Normal Exam - Neck Neck Exam: Normal Inspection - Respiratory Additional Respiratory Exam Details: Harsh breath sounds otherwise clear - Cardiovascular Cardiovascular Exam: POSITIVE: RRR - GI/Abdominal GI/Abdominal Exam: POSITIVE: Normal Bowel Sounds, Non Tender, Non Distended, Soft, No Organomegaly - Rectal Rectal Exam: POSITIVE: Deferred - External Exam: POSITIVE: Deferred Exam: POSITIVE: Deferred - Extremities Extremities Exam: POSITIVE: Normal Inspection - Back Back Exam: POSITIVE: Normal Inspection - Neurological Neurological Exam: POSITIVE: Alert, Oriented x 3, CN II-XII Intact, No Facial Droop, Speech Intact / Clear - Psychiatric Psychiatric Exam: POSITIVE: Normal Affect Results - Labs CBC and BMP: 07/17/18 14:55 07/17/18 14:48 - EKG Data -: EKG Interpreted by Me Rate: Normal EKG Shows Normal: Sinus Rhythm (EKG showed normal sinus rhythm with right bundle branch block) - Imaging Status: Report Reviewed by Me (Chest X ray 1. No acute infiltrate or effusion. 2. Mild cardiomegaly without CHF. 3. Severe osteoporosis.) Assessment and Plan - Patient Problems (1) Influenza A Current Visit: Yes Status: Acute Comment: She did receive Tamiflu will continue with that. Code(s): J10.1 - Influenza due to other identified influenza virus with other respiratory manifestations (2) Hypoxia Current Visit: Yes Status: Acute Comment: She has history of sleep apnea so she wear oxygen at night, so maybe this sleep apnea is also contributing to the hypoxia itself continue with oxygen, continue breathing treatment as needed. She did receive some steroid in the ER not sure whether she needed tomorrow we'll how her chest sounds and then will decide Code(s): R09.02 - Hypoxemia (3) Benign essential hypertension Current Visit: No Status: Chronic Onset Date: 01/15/13 Comment: Same med Code(s): I10 - Essential (primary) hypertension (4) History of gout Current Visit: Yes Status: Acute Comment: Continue allopurinol Code(s): Z87.39 - Personal history of other diseases of the musculoskeletal system and connective tissue (5) Gout Current Visit: No Status: Chronic Comment: Continue allopurinol Code(s): M10.9 - Gout, unspecified Qualifiers: Gout site: unspecified site Gout etiology: unspecified cause Chronicity: chronic Presence of tophus: without tophus Qualified Code(s): M1A.9XX0 - Chronic gout, unspecified, without tophus (tophi)
[2018-07-17] MEDS ORDERED: LIDOCAINE W/ SODIUM BICARB 0.5 ML SYR SUBD PRN (20:53)
[2018-07-17] MEDS ORDERED: DOCUSATE 100 MG CAPSULE PO PRN (20:53)
[2018-07-17] MEDS ORDERED: CALCIUM CARBONATE 500 MG (TUMS) CHEWABLE TABLET PO PRN (20:53)
[2018-07-17] MEDS ORDERED: ACETAMINOPHEN 325 MG TABLET PO PRN (20:53)
[2018-07-17] MEDS ORDERED: OSELTAMIVIR PHOSPHATE 75 MG CAPSULE PO SCH (21:00)
[2018-07-17] MEDS ORDERED: MELATONIN 5 MG TABLET PO SCH ×2 (21:00)
[2018-07-17] MEDS: OSELTAMIVIR PHOSPHATE 6 MG/1 ML -60 ML ORAL SUSP PO SCH (21:05)
[2018-07-17] MEDS: OMEPRAZOLE 20 MG CAPSULE PO SCH (21:08)
[2018-07-17] MEDS: GABAPENTIN 100 MG CAPSULE PO SCH (21:08)
[2018-07-17] MEDS: DOCUSATE 100 MG CAPSULE PO SCH (21:08)
[2018-07-18] MEDS: IPRATROPIUM/ALBUTEROL SULFATE 3 ML NEB NEB PRN (06:34)
[2018-07-18] MEDS ORDERED: ATENOLOL 25 MG TABLET PO SCH ×2 (09:00→17:00)
[2018-07-18] MEDS ORDERED: Meloxicam Tab 7.5 MG TABLET PO SCH (09:00)
[2018-07-18] MEDS ORDERED: CALCIUM 500 MG PO SCH (09:00)
[2018-07-18] MEDS ORDERED: SOLIFENACIN SUCCINATE PO SCH (09:00)
[2018-07-18] MEDS: OSELTAMIVIR PHOSPHATE 6 MG/1 ML -60 ML ORAL SUSP PO SCH ×2 (09:03→21:09)
[2018-07-18] MEDS: GABAPENTIN 100 MG CAPSULE PO SCH ×3 (09:03→21:09)
[2018-07-18] MEDS: DOCUSATE 100 MG CAPSULE PO SCH ×2 (09:03→21:08)
[2018-07-18] MEDS: ALLOPURINOL 100 MG TABLET PO SCH (09:03)
[2018-07-18] MEDS: ASPIRIN 81 MG (BABY) CHEWABLE TABLET PO SCH (09:03)
--- NOTE | 2018-07-18 13:00 | PDOC(PROG) ---
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 Her pain is severe. She had some Tylenol and that did not help. She is still having the cough, she is denying shortness of breath. She is really hurting according to her. Objective : Data - Labs CBC and BMP: 07/17/18 14:55 07/17/18 14:48 Objective : Exam - General General Appearance: Obese Additional General Exam Details: Anxious, restless - Head Head Exam: Normal Inspection - Eye Eye Exam: Normal Appearance - ENT ENT Exam: Normal Exam - Neck Neck Exam: Normal Inspection - Respiratory Additional Respiratory Exam Details: Occasional wheeze. With harsh breath sounds - Cardiovascular Cardiovascular Exam: RRR - GI/Abdominal GI/Abdominal Exam: Normal Bowel Sounds, Non Tender, Non Distended, Soft, No Organomegaly - Rectal Rectal Exam: Deferred - External Exam: Deferred Exam: Deferred - Extremities Extremities Exam: Normal Inspection - Back Back Exam: Normal Inspection Additional Back Exam Details: There is no bruising I can see, there is tenderness at the left buttock area. - Neurological Neurological Exam: Alert, Oriented x 3, CN II-XII Intact, No Facial Droop, Speech Intact / Clear Additional Neurological Exam Details: Tremor noted with restlessness - Psychiatric Psychiatric Exam: Anxious - Integumentary Integumentary Exam: Normal Color Assessment and Plan - Patient Problems (1) Influenza A Current Visit: Yes Status: Acute Comment: Continue current treatment, continue Tamiflu. However since she is wheezing will add steroid. Continue breathing treatment. Code(s): J10.1 - Influenza due to other identified influenza virus with other respiratory manifestations (2) Hypoxia Current Visit: Yes Status: Acute Comment: Likely secondary to the above she is on oxygen continue breathing treatment Tamiflu and steroid. Code(s): R09.02 - Hypoxemia (3) Benign essential hypertension Current Visit: No Status: Chronic Onset Date: 01/15/13 Comment: Same med Code(s): I10 - Essential (primary) hypertension (4) History of gout Current Visit: Yes Status: Acute Comment: Same medication Code(s): Z87.39 - Personal history of other diseases of the musculoskeletal s ystem and connective tissue (5) Fall Current Visit: Yes Status: Acute Comment: Patient is complaining from pain in the buttock area and the left side of the chest. Will order x-ray. She Says she did have hydrocodone before and she tolerated that we'll write for the hydrocodone for pain for her. Code(s): W19.XXXA - Unspecified fall, initial encounter
[2018-07-18] MEDS: methylPREDNISolone 40 MG/1 ML VIAL IVP SCH (13:04)
[2018-07-18] MEDS: HYDROcodone-APAP 5 MG -325 MG TABLET PO PRN ×2 (13:04→16:20)
--- NOTE | 2018-07-18 15:31 | DI ---
SACRAL COCCYGEAL VIEWS, 07/18/2018 2:14 PM: Clinical History: Back pain after a fall. Previous Exam: None at this facility. Views: AP and angled AP and lateral views of the sacrum and coccyx are submitted. Soft Tissues: No soft tissue abnormality noted Sacrum and Coccyx: On the lateral view, there is sharp angulation anteriorly of the coccyx at the sac rococcygeal junction, but the margins are quite smooth consistent with an old fracture. Artifacts: No significant artifacts from stool or gas. Additional Findings: Status post anterior fusions at L4-5 and L5-S1 with grade 1 spondylolisthesis at both levels. Reading: No acute fracture is identified. There is an apparent old fracture at the sacrococcygeal junction. Ho wever, if the patient is symptomatic at the tip of the tailbone, and may probably be acute.
--- NOTE | 2018-07-18 15:46 | DI ---
LUMBAR SPINE SERIES, 07/18/2018 2:14 PM: Clinical History: Back pain after a fall. Previous Exam: None at this facility. Views: Upright AP and lateral views. Vertebral Bodies: Normal height and size. No compression fractures. Status post L4 and L5 laminectomi es with anterior and posterior fusions at L4-5 and L5-S1. Posterior fusions are performed with bone g rafts. Disc Spaces: Severe disc space narrowing is present at the remaining levels. Alignment: There is a grade 1 spondylolisthesis at L3-4 through L5-S1 with minimal grade 1 reverse sp ondylolisthesis at L1-2 and L2-3. Pedicles: Normal. Apophyseal Joints: The apophyseal joints between L3-4 and L5-S1 bilaterally appear fused. SI Joints: Arthritic changes are present in both SI joints. Bone Density: Osteoporotic. Readin. No acute fracture is identified. Because of the osteoporosis, if symptoms persist, then a repeat study or an MRI scan would be recommended. 2. Status post L4 and L5 laminectomies with anterior fat L4-5 and L5-S1 and posterior fusions betwee n L3-4 and L5-S1. Posterior fusions are accomplished with bone grafts. The posterior fusions appear s olid. 3. Minimal grade 1 reverse spondylolisthesis at L1-2 and L2-3 with grade 1 spondylolisthesis at L3-4 through L5-S1.
[2018-07-18] MEDS: ONDANSETRON 4 MG/2 ML VIAL IVP PRN ×2 (16:19→22:48)
[2018-07-18] MEDS: Multivitamin Tab 1 TAB PO SCH (16:20)
[2018-07-18] MEDS: ATENOLOL 25 MG TABLET PO SCH (16:21)
[2018-07-18] MEDS: CALCIUM CARBONATE 500 MG (TUMS) CHEWABLE TABLET PO SCH (16:21)
[2018-07-18] MEDS: Meloxicam Tab 7.5 MG TABLET PO SCH (16:21)
--- NOTE | 2018-07-18 16:22 | DI ---
LEFT RIB SERIES, 07/18/2018 2:14 PM: Clinical History: Pain on the left side of the chest after a fall. Previous Exam: None at this facility. Views: Two views are submitted. Ribs: No rib fractures noted. Lung: Normal lung. Reading: No acute fractures are visualized.
[2018-07-18] MEDS: MELATONIN 3 MG TABLET PO SCH (21:08)
[2018-07-18] MEDS: OMEPRAZOLE 20 MG CAPSULE PO SCH (21:09)
[2018-07-19] MEDS ORDERED: Sodium Chloride 0.9% 1,000 ML PRIMARY IV SCH (00:30)
[2018-07-19] MEDS: methylPREDNISolone 40 MG/1 ML VIAL IVP SCH ×2 (01:29→12:50)
[2018-07-19 05:14] LABS: BLOOD UREA NITROGEN 39 mg/dL (7-22)
[2018-07-19] MEDS: IPRATROPIUM/ALBUTEROL SULFATE 3 ML NEB NEB PRN ×2 (06:34→15:07)
[2018-07-19] MEDS: OSELTAMIVIR PHOSPHATE 6 MG/1 ML -60 ML ORAL SUSP PO SCH ×2 (09:19→20:31)
[2018-07-19] MEDS: DOCUSATE 100 MG CAPSULE PO SCH ×2 (09:20→20:32)
[2018-07-19] MEDS: ASPIRIN 81 MG (BABY) CHEWABLE TABLET PO SCH (09:20)
[2018-07-19] MEDS: ALLOPURINOL 100 MG TABLET PO SCH (09:20)
[2018-07-19] MEDS: GABAPENTIN 100 MG CAPSULE PO SCH ×3 (09:20→20:32)
--- NOTE | 2018-07-19 09:37 | PDOC(PROG) ---
Date of Service: 07/19/18 Time of Service: 09:00 Interval History: Subjective She feels better today compared to yesterday. She is not complaining from pain today. Breathing is somewhat better cough is somewhat better. She did vomit last night. Objective : Data - Labs CBC and BMP: 07/17/18 14:55 07/19/18 04:20 Objective : Exam - General General Appearance: No Acute Distress, Cooperative - Head Head Exam: Normal Inspection - Eye Eye Exam: Normal Appearance - ENT ENT Exam: Normal Exam - Neck Neck Exam: Normal Inspection - Respiratory Additional Respiratory Exam Details: Harsh breath sounds but otherwise clear - Cardiovascular Cardiovascular Exam: RRR - GI/Abdominal GI/Abdominal Exam: Normal Bowel Sounds, Non Tender, Non Distended, Soft - Rectal Rectal Exam: Deferred - External Exam: Deferred Exam: Deferred - Extremities Extremities Exam: Normal Inspection - Neurological Neurological Exam: Alert, Oriented x 3, No Facial Droop, Speech Intact / Clear, Moves All Extremities Equally Additional Neurological Exam Details: tremor/chorea noted - Psychiatric Psychiatric Exam: Normal Affect Assessment and Plan - Patient Problems (1) Influenza A Current Visit: Yes Status: Acute Comment: Continue Tamiflu. I think she said she vomited last night we will watch her another night in the hospital if things stable maybe home tomorrow Code(s): J10.1 - Influenza due to other identified influenza virus with other respiratory manifestations (2) Hypoxia Current Visit: Yes Status: Acute Comment: Continue steroid and bronchodilator in addition to Tamiflu Code(s): R09.02 - Hypoxemia (3) Benign essential hypertension Current Visit: No Status: Chronic Onset Date: 01/15/13 Comment: Same med Code(s): I10 - Essential (primary) hypertension (4) History of gout Current Visit: Yes Status: Acute Comment: Same meds Code(s): Z87.39 - Personal history of other diseases of the musculoskeletal system and connective tissue (5) Fall Current Visit: Yes Status: Acute Comment: There is no evidence of fracture maybe question of an old fracture at the coccyx she is not complaining from pain there likely old. Code(s): W19.XXXA - Unspecified fall, initial encounter
[2018-07-19] MEDS: oxyCODONE-ACETAMINOPHEN 5-325 TAB PO PRN ×3 (12:50→20:31)
[2018-07-19] MEDS: ATENOLOL 25 MG TABLET PO SCH (16:32)
[2018-07-19] MEDS: Meloxicam Tab 7.5 MG TABLET PO SCH (16:32)
[2018-07-19] MEDS: Multivitamin Tab 1 TAB PO SCH (16:33)
[2018-07-19] MEDS: CALCIUM CARBONATE 500 MG (TUMS) CHEWABLE TABLET PO SCH (16:33)
[2018-07-19] MEDS: OMEPRAZOLE 20 MG CAPSULE PO SCH (20:32)
[2018-07-19] MEDS: MELATONIN 3 MG TABLET PO SCH (20:32)
[2018-07-20] MEDS: IPRATROPIUM/ALBUTEROL SULFATE 3 ML NEB NEB PRN (06:21)
[2018-07-20] MEDS: OSELTAMIVIR PHOSPHATE 6 MG/1 ML -60 ML ORAL SUSP PO SCH (09:15)
[2018-07-20] MEDS: oxyCODONE-ACETAMINOPHEN 5-325 TAB PO PRN (09:15)
[2018-07-20] MEDS: GABAPENTIN 100 MG CAPSULE PO SCH (09:16)
[2018-07-20] MEDS: ASPIRIN 81 MG (BABY) CHEWABLE TABLET PO SCH (09:16)
[2018-07-20] MEDS: DOCUSATE 100 MG CAPSULE PO SCH (09:16)
[2018-07-20] MEDS: ALLOPURINOL 100 MG TABLET PO SCH (09:20)
--- NOTE | 2018-07-20 10:24 | DCSUMMARY ---
Hospitalization Summary Admit Date: 07/17/2018 Discharge Date: 07/20/18 Hospital Course: Discharge diagnoses 1. Influenza A 2. History of chronic low back pain with failed back syndrome lumbar stenosis at L2-L3 and L3-L4 3. History of diabetes 4. Hypercholesterolemia 5. Obstructive sleep apnea 6. 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 History of depression 8. Hypertension 9. History of gout 10. fall with pain in the left buttock and side of the chest Hospital course This is an 83 years old female with medical history significant for history of hypertension, diabetes on no medication, history of gout, history of diabetic neuropathy and history of sleep apnea on oxygen at night who has been sick for 3-4 days before presentation with cough there was no significant phlegm production, it was noted that she was more short of breath on the day of admission she was brought for evaluation. Evaluation in the ER revealed hypoxia and she was positive for influenza A so she was admitted. She was admitted to the hospital and put her on Tamiflu, breathing treatment and oxygen. She normally wears oxygen only at night. We did give her a brief treatment with steroid. she unfortunately rolled over and fell while in the hospital. She was complaining from pain in her back we did x-ray there was an old fracture at the coccyx but her pain was not in that area. We gave her some pain medication and that's helped her pain. had to switch to different medication form hydrocodone to percocet because of nausea. On the day of discharge she was feeling better chest sounded much improved. She did walk around it was felt that she is back to her baseline so we discharged her home she did not oxygen during the daytime. We discharged her to finish her course with Tamiflu. She follow-up with her primary. Discharge instructions diet regular Activity as tolerated Medications Current Medication(s) Medication Instructions Recorded Confirmed Type Aspirin 81 mg PO DAILY 01/30/16 07/17/18 History Calcium 500 mg PO DAILY 01/30/16 07/17/18 History Docusate Sodium [Stool Softener] 100 mg PO BID 01/30/16 07/17/18 History Multivits W-Fe,Other Min [Century 1 ea PO DAILY 01/30/16 07/17/18 History Senior] Melatonin 10 mg PO QHS 12/27/16 07/17/18 History blood sugar diagnostic strips 1 strip MISCELLANEOUS TID #100 06/10/17 07/17/18 Rx strip atenolol 25 mg tablet 1 tab PO DAILY #30 tab 11/15/17 07/17/18 Rx allopurinol 100 mg tablet 100 mg PO QDAY #30 tab 11/28/17 07/17/18 Rx amlodipine 10 mg tablet 10 mg PO QDAY #30 tab 11/28/17 07/17/18 Rx gabapentin 100 mg capsule 100 mg PO TID #90 cap 11/28/17 07/17/18 Rx solifenacin 5 mg tablet 5 mg PO BID #180 tab 01/27/18 07/17/18 Rx omeprazole 20 mg capsule,delayed See Rx Instructions .ROUTE 04/25/18 07/17/18 Rx release .COMPLEX #30 capsule meloxicam 7.5 mg tablet 7.5 mg PO QDAY #30 tab 05/16/18 07/17/18 Rx Oseltamivir Phosphate [Tamiflu] 30 mg PO BID susp 07/20/18 Rx Condition at discharge was stable for discharge Follow-up with primary in 1-2 weeks Exam - Vitals Vital Signs: Vital Signs Temperature 96.8 F Temperature Source Temporal Artery Scan Pulse Rate [Pulse Oximeter] 59 Pulse Rate 57 Respiratory Rate 16 Blood Pressure [Left Arm] 158/64 Blood Pressure 144/73 Pulse Ox 95 Oxygen Flow Rate 1 Oxygen Delivery Method Room Air Height 5 ft 7 in Weight 201 lb 6.4 oz - General General Appearance: No Acute Distress, Cooperative, Obese - Head Head Exam: Normal Inspection - Eye Eye Exam: POSITIVE: Normal Appearance - ENT ENT Exam: POSITIVE: Normal Exam - Neck Neck Exam: Normal Inspection - Respiratory Additional Respiratory Exam Details: Occasional Harsh breath sounds but otherwise clear. - Cardiovascular Cardiovascular Exam: POSITIVE: RRR - GI/Abdominal GI/Abdominal Exam: POSITIVE: Normal Bowel Sounds, Non Tender, Non Distended, Soft, No Organomegaly - Rectal Rectal Exam: POSITIVE: Deferred - External Exam: POSITIVE: Deferred Exam: POSITIVE: Deferred - Extremities Extremities Exam: POSITIVE: Normal Inspection - Neurological Neurological Exam: POSITIVE: Alert, Oriented x 3, CN II-XII Intact, No Facial Droop, Speech Intact / Clear, Moves All Extremities Equally Additional Neurological Exam Details: Tremor noted Patient Problems - Patient Problem List (1) Influenza A Current Visit: Yes Status: Acute Code(s): J10.1 - Influenza due to other identified influenza virus with other respiratory manifestations Category: Medical (2) Hypoxia Current Visit: Yes Status: Acute Code(s): R09.02 - Hypoxemia Category: Medical (3) Benign essential hypertension Current Visit: No Status: Chronic Onset Date: 01/15/13 Code(s): I10 - Essential (primary) hypertension Category: Medical (4) History of gout Current Visit: Yes Status: Acute Code(s): Z87.39 - Personal history of other diseases of the musculoskeletal system and connective tissue Category: Medical (5) Fall Current Visit: Yes Status: Acute Code(s): W19.XXXA - Unspecified fall, initial encounter Category: Medical
[2018-07-20 12:37] VITALS: BP 162/52; RESP 20; TEMP 97.9; O2SAT 90
[2018-07-20] MEDS ORDERED: oxyCODONE-ACETAMINOPHEN 5-325 TAB PO PRN (12:51)
== END 2018-07-20 13:49 | disposition home or self-care (01) ==
LOC: MED/SURG 14:35 → ER 14:35 → MED/SURG 18:51
PROVIDERS: ADMIT Internal Medicine; ATTEND Internal Medicine

== ENCOUNTER 2018-08-28 10:58 | Inpatient (IN) ==
[2018-08-28] MEDS ORDERED: IPRATROPIUM/ALBUTEROL SULFATE 3 ML NEB NEB ONE (11:32)
[2018-08-28] MEDS ORDERED: Sodium Chloride 0.9% 1,000 ML PRIMARY IV ONE (11:32)
--- NOTE | 2018-08-28 11:46 | EKG ---
[address] [address] Measurements Intervals [place] Rate: 75 P: 61 NE: 208 QRS: -53 QRSD: 133 T: 66 QT: 445 QTc: 474 Interpretive Statements SINUS RHYTHM INTRAVENTRICULAR CONDUCTION DELAY [130+ ms QRS DURATION] POSSIBLE LATERAL MYOCARDIAL INFARCTION [40+ ms Q WAVE AND/OR ST/T ABNORMALITY IN I/aVL/V5/V6], PROBABLY OLD Compared to ECG 07/17/2018 16:35:00 Intraventricular conduction delay now present Myocardial infarct finding now present Right bundle-branch block no longer present Left anterior fascicular block no longer present Electronically Signed On 08-29-18 08:42:10 MDT by Francesco Pedraza MD [email or web address]
[2018-08-28 12:14] LABS: BASOPHILS # (AUTO) 0.05 10*3/UL; BASOPHILS % (AUTO) 0.5 % (0-1); EOSINOPHILS # (AUTO) 0.75 10*3/UL; EOSINOPHILS % (AUTO) 7.7 % (0-8); Hematocrit [HCT] 35.9 % (37.0-47.0); Hemoglobin [HGB] 11.9 g/dL (12.0-16.0); LYMPHOCYTES # (AUTO) 1.97 10*3/uL; MEAN CORPUSCULAR HEMOGLOBIN 31.8 PG (27-31); MEAN CORPUSCULAR HGB CONC 33.1 g/dL (33-37); MONOCYTES % (AUTO) 7.2 % (5-15); NEUTROPHILS # (AUTO) 6.24 10*3/UL; NEUTROPHILS % (AUTO) 64.2 % (50-80); RED BLOOD COUNT 3.74 10^6/uL (4.20-5.40)
[2018-08-28 12:18] LABS: PLATELET MORPHOLOGY COMMENT NORMAL MORPHOLOGY (NORM); RBC MORPHOLOGY COMMENT NORMAL MORPHOLOGY (NORM); WBC MORPHOLOGY COMMENT NORMAL MORPHOLOGY (NORM)
--- NOTE | 2018-08-28 12:48 | DI ---
AP /LATERAL CHEST, 08/28/2018 11:34 AM : Clinical History: Cough. Previous Exam: 07/17/2018. Soft Tissues: No acute soft tissue abnormality. Bones: Osteoporotic. Compression fracture of approximately L1 or L2. Heart: Normal heart. Lungs: No infiltrates. Effusion(s): None. Mediastinum: Normal mediastinum. Nodules: No pulmonary nodules. Readin. No acute infiltrate or effusion. 2. Severe osteoporosis.
[2018-08-28 12:57] LABS: VENOUS PH 7.42 (7.32-7.42)
[2018-08-28 13:00] LABS: BLOOD UREA NITROGEN 24 mg/dL (7-22); BUN/CREATININE RATIO 21.81 (6-20); SERUM ALBUMIN 3.3 g/dL (3.5-4.8)
--- NOTE | 2018-08-28 14:28 | DI ---
CT CTA Chest Non-Coronary WWO 08/28/2018 1:08 PM History: [facility] ^dyspnea; elevated d-dimer Comparison: Chest x-ray from earlier the same day. CTA PE 01/22/2013. Procedure: CT angiography of the pulmonary arteries was performed after the administration of 57 mL o f Isovue intravenous contrast. Findings: There is normal opacification of the pulmonary arteries with no evidence of filling defect. Evaluation of the lungs demonstrates bilateral atelectasis versus scar with no dense consolidation, pneumothorax, or pleural effusion. No new pulmonary nodules are noted. There is moderate diffuse bron chial wall thickening without endobronchial lesion. There are shotty mediastinal and hilar lymph nodes, not pathologically enlarged by CT size criteria. The aorta and branch vessels demonstrate normal course and caliber. Atheromatous aortic and coronary artery calcifications are present. Heart size is within normal limits with no pericardial effusion. T he thyroid exhibits normal CT morphology. There is a small hiatal hernia. The visualized upper abdominal structures are notable for surgical clips in the gallbladder fossa. Th ere is fatty atrophy of the pancreas. Diffuse demineralization of the osseous structures limits evaluation of fine anatomic detail. The oss eous structures are not significantly changed. There is no evidence of acute or healing rib fractures . Impression: 1. No main or segmental pulmonary embolism. 2. There is diffuse bronchial wall thickening without endobronchial lesion. This is a non-specific fi nding that is most commonly seen in the setting of acute or chronic bronchitis, as well as reactive a irways disease.
--- NOTE | 2018-08-28 16:21 | PDOC ---
HPI - History of Present Illness History of Present Illness: complaining of increased cough over last two days comes to Er for evaluation. found to have bronchitis on ct scan lives alone and family is out of town . Past Medical History Medical History: 1. 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 2. Diabetes mellitus type II, well controlled. 3. Hypercholesterolemia. 4. Obstructive sleep apnea. 5. History of a tremor, secondary to Reglan. 6. Depression. 7. Hypertension. 8. Admission back in October 2017 for delirium secondary to medications Surgical History: Bladder suspension. Lumbar fusion in the past and apparently some sort of hardware removal per the patient's daughter. Status post cholecystectomy. Status post hysterectomy. Status post laser cataract surgery Pertinent Family History: Mother from cancer, she stated that she did not know why her father passed on Past Social History: Has 8 children. Does not smoke or drink. Lives alone at the [facility]. Tobacco Use: Never Smoker In the Past 12 Months, Have Used or Abuse Any of the Following Substance: None Medication / Allergies Home Medications: Home Medications Medication Instructions Recorded Confirmed Type Aspirin 81 mg PO DAILY 01/30/16 08/11/18 History Docusate Sodium [Stool Softener] 100 mg PO BID 01/30/16 08/11/18 History Multivits W-Fe,Other Min [Century 1 ea PO DAILY 01/30/16 08/11/18 History Senior] Melatonin 10 mg PO QHS 12/27/16 08/11/18 History blood sugar diagnostic strips 1 strip MISCELLANEOUS TID #100 06/10/17 08/11/18 Rx strip atenolol 25 mg tablet 1 tab PO DAILY #30 tab 11/15/17 08/11/18 Rx allopurinol 100 mg tablet 100 mg PO QDAY #30 tab 11/28/17 08/11/18 Rx amlodipine 10 mg tablet 10 mg PO QDAY #30 tab 11/28/17 08/11/18 Rx gabapentin 100 mg capsule 100 mg PO TID #90 cap 11/28/17 08/11/18 Rx solifenacin 5 mg tablet 5 mg PO BID #180 tab 01/27/18 08/11/18 Rx meloxicam 7.5 mg tablet 7.5 mg PO QDAY #30 tab 08/07/18 08/11/18 Rx Free text entry 1,200 mg PO DAILY 08/11/18 08/11/18 History albuterol sulfate HFA 90 2 puff INH Q4-6H PRN #18 g 08/11/18 08/11/18 Rx mcg/actuation aerosol inhaler mupirocin 2 % topical ointment 1 applic TOPICAL TID g 08/11/18 08/11/18 History omeprazole 20 mg capsule,delayed 20 mg .ROUTE QDAY cap 08/11/18 08/11/18 History release Allergies/Adverse Reactions: Allergies Allergy/AdvReac Type Severity Reaction Status Date / Time metoclopramide HCl Allergy Severe SHORTNESS Verified 08/28/18 15:16 [From Reglan] OF BREATH aspirin Allergy Intermediate Nausea and Verified 08/28/18 15:16 Vomiting pregabalin [From Lyrica] Allergy Intermediate Nausea, Verified 08/28/18 15:16 confusion, dizziness, lightheaded Review of Systems - Review of Systems All Systems: Reviewed & No Additional Complaints Except as Stated - Respiratory Respiratory: REPORTS: Cough. DENIES: Pleuritic Pain, Hemoptysis - Cardiovascular Cardiovascular: DENIES: Negative System Review, Chest Pain, Edema, Syncope, Palpitations, Orthopnea, Paroxysmal Nocturnal Dyspnea, Other, See HPI - Gastrointestinal Gastrointestinal / Abdominal: DENIES: Negative System Review, Nausea, Vomiting, Diarrhea, Constipation, Abdominal Pain, Bloody Stool, Poor Appetite, Heartburn, Regurgitation, Bloating, Lactose Intolerance, Melena, Bright Red Blood per Rectum, Other, See HPI Exam - Vitals Vital Signs: Vital Signs Pulse Rate [Pulse Oximeter 82 Left] Pulse Rate 74 Respiratory Rate 20 Blood Pressure [Right Arm] 125/77 Pulse Ox 93 Oxygen Delivery Method Room Air Height 5 ft 6 in Weight 200 lb - General General Appearance: No Acute Distress, Cooperative - Head Head Exam: Normal Inspection, Normocephalic, Atraumatic - Eye Eye Exam: POSITIVE: Normal Appearance, PERRL, EOMI, No Scleral Icterus - Respiratory Respiratory Exam: POSITIVE: Clear to Auscultation - Bilaterally, Breathing Non Labored, Normal To Percussion, Normal to Percussion and Palpation - Cardiovascular Cardiovascular Exam: POSITIVE: RRR, No Murmur, No Clicks, No Gallops, No Rubs, PMI Non-Displaced - GI/Abdominal GI/Abdominal Exam: POSITIVE: Normal Bowel Sounds, Non Tender, Non Distended, Soft, No Masses, No Hepatomegaly, No Splenomegaly, No Organomegaly - Extremities Extremities Exam: POSITIVE: No Clubbing Present, No Edema Present, No Cyanosis Present - Neurological Neurological Exam: POSITIVE: Alert, Oriented x 3 Results - Labs CBC and BMP: 08/28/18 11:55 08/28/18 11:55 Assessment and Plan - Patient Problems (1) Bronchitis Current Visit: Yes Status: Acute Comment: iv zithromax Code(s): J40 - Bronchitis, not specified as acute or chronic (2) Hypokalemia Current Visit: Yes Status: Acute Comment: replace Code(s): E87.6 - Hypokalemia (3) Chronic cough Current Visit: No Status: Chronic Onset Date: 12/23/13 Comment: cont oxgen Code(s): R05 - Cough
[2018-08-28] MEDS ORDERED: DOCUSATE 100 MG CAPSULE PO PRN (16:26)
[2018-08-28] MEDS ORDERED: LIDOCAINE W/ SODIUM BICARB 0.5 ML SYR SUBD PRN (16:26)
[2018-08-28] MEDS ORDERED: ONDANSETRON 4 MG/2 ML VIAL IVP PRN (16:26)
[2018-08-28] MEDS ORDERED: ACETAMINOPHEN 325 MG TABLET PO PRN (16:26)
[2018-08-28] MEDS ORDERED: CALCIUM CARBONATE 500 MG (TUMS) CHEWABLE TABLET PO PRN (16:26)
[2018-08-28] MEDS: ASPIRIN 81 MG (BABY) CHEWABLE TABLET PO SCH (18:43)
[2018-08-28] MEDS: GABAPENTIN 100 MG CAPSULE PO SCH ×2 (18:43→20:41)
[2018-08-28] MEDS: ALLOPURINOL 100 MG TABLET PO SCH (18:43)
[2018-08-28] MEDS: DOCUSATE 100 MG CAPSULE PO SCH ×2 (18:44→20:41)
[2018-08-28] MEDS: Meloxicam Tab 7.5 MG TABLET PO SCH (18:44)
[2018-08-28] MEDS: ATENOLOL 25 MG TABLET PO SCH (18:44)
[2018-08-28] MEDS: Mupirocin Ointment 2% 22 gm Tube TOPICAL SCH (20:41)
[2018-08-28] MEDS: SOLIFENACIN 10 MG PO SCH (20:41)
[2018-08-28] MEDS: ALBUTEROL SULFATE 2.5 MG/3 ML NEB PRN (21:02)
[2018-08-28] MEDS ORDERED: methylPREDNISolone Succ Inj 125 MG in Sodium Chloride 0.9% 50 ML IV ONE (21:09)
[2018-08-28] MEDS: BENZONATATE 200 MG CAPSULE PO PRN (21:44)
[2018-08-28] MEDS ORDERED: methylPREDNISolone 125 MG/2 ML VIAL IVP ONE (22:28)
[2018-08-29 04:50] LABS: BASOPHILS # (AUTO) 0.02 10*3/UL; BASOPHILS % (AUTO) 0.3 % (0-1); EOSINOPHILS # (AUTO) 0.12 10*3/UL; EOSINOPHILS % (AUTO) 1.5 % (0-8); Hematocrit [HCT] 39.5 % (37.0-47.0); Hemoglobin [HGB] 12.9 g/dL (12.0-16.0); MEAN CORPUSCULAR HEMOGLOBIN 31.4 PG (27-31); MEAN CORPUSCULAR HGB CONC 32.7 g/dL (33-37); MEAN CORPUSCULAR VOLUME 96.1 FL (81-99); MONOCYTES # (AUTO) 0.05 10*3/UL (0.3-0.8); MONOCYTES % (AUTO) 0.6 % (5-15); NEUTROPHILS # (AUTO) 7.16 10*3/UL; NEUTROPHILS % (AUTO) 89.7 % (50-80); RED BLOOD COUNT 4.11 10^6/uL (4.20-5.40)
[2018-08-29 04:56] LABS: PLATELET MORPHOLOGY COMMENT NORMAL MORPHOLOGY (NORM); RBC MORPHOLOGY COMMENT NORMAL MORPHOLOGY (NORM); WBC MORPHOLOGY COMMENT NORMAL MORPHOLOGY (NORM)
[2018-08-29 05:01] LABS: BLOOD UREA NITROGEN 23 mg/dL (7-22); SERUM ALBUMIN 3.9 g/dL (3.5-4.8)
[2018-08-29] MEDS: ALBUTEROL SULFATE 2.5 MG/3 ML NEB PRN (06:29)
[2018-08-29] MEDS: OMEPRAZOLE 20 MG CAPSULE PO SCH (07:51)
--- NOTE | 2018-08-29 08:31 | PDOC ---
Upper Respiratory HPI - General Chief Complaint: Respiratory Complaint Stated Complaint: COUGH Date Seen by Provider: 08/28/18 Time Seen by Provider: 11:20 Source: POSITIVE: Patient, EMS Exam Limitations: POSITIVE: No limitations Nurse's Notes Reviewed & Considered: Yes EMS Report Reviewed & Considered: Verbal - History of Present Illness Initial Comments: The patient is an 83 year old female who is brought to the emergency room by ambulance. Patient complains of a harsh "deep cough" and shortness of breath for several days. Patient lives alone and she called the ambulance. Paramedics report that on their arrival to the patient's residence her oxygen saturation was 83% on room air. Patient was given a DuoNeb nebulizer treatment and paramedics report that her oxygen saturation was 88% afterward. Patient was recently hospitalized for influenza A and was discharged from the hospital on 07/20/2018. Patient states that her cough is somewhat productive of mucoid sputum. She denies any chest pain. No hemoptysis. No known fevers. Patient states that she has had some "chills". Patient has a history of arg-[id number] diabetes mellitus. And hypertension. Timing: REPORTS: Constant Duration: >24 hours Severity: Moderate Quality: REPORTS: Other (Patient denies any chest or other pain) Context: DENIES: Recent Foreign Travel, Insect Bite, Tick Bite, Multiple Pt's w/ Same Sx, Recent Chemotherapy, Other Modifying Factors: improves with: Exertion, Coughing Associated Symptoms: REPORTS: Chills, Sweating, Productive Cough (Productive of mucoid sputum), Shortness of Breath. DENIES: Hurts to Breathe Similar Symptoms Previously: Yes Recently seen/treated/hospitalized: Yes Any Prior Injuries Related to Current Complaint?: No - Patient Home Medications Home Medications: Home Medications Aspirin 81 mg PO DAILY 01/30/16 Docusate Sodium [Stool Softener] 100 mg PO BID 01/30/16 Multivits W-Fe,Other Min [Century Senior] 1 ea PO DAILY 01/30/16 Melatonin 10 mg PO QHS 12/27/16 blood sugar diagnostic strips 1 strip MISCELLANEOUS TID #100 strip 06/10/17 atenolol 25 mg tablet 1 tab PO DAILY #30 tab 11/15/17 allopurinol 100 mg tablet 100 mg PO QDAY #30 tab 11/28/17 amlodipine 10 mg tablet 10 mg PO QDAY #30 tab 11/28/17 gabapentin 100 mg capsule 100 mg PO TID #90 cap 11/28/17 solifenacin 5 mg tablet 5 mg PO BID #180 tab 01/27/18 meloxicam 7.5 mg tablet 7.5 mg PO QDAY #30 tab 08/07/18 albuterol sulfate HFA 90 mcg/actuation aerosol inhaler 2 puff INH Q4-6H PRN #18 g 08/11/18 mupirocin 2 % topical ointment 1 applic TOPICAL TID g 08/11/18 omeprazole 20 mg capsule,delayed release 20 mg .ROUTE QDAY cap 08/11/18 - Patient Allergies Allergies/Adverse Reactions: Allergies Allergy/AdvReac Type Severity Reaction Status Date / Time metoclopramide HCl Allergy Severe SHORTNESS Verified 08/29/18 07:49 [From Reglan] OF BREATH aspirin Allergy Intermediate Nausea and Verified 08/29/18 07:49 Vomiting pregabalin [From Lyrica] Allergy Intermediate Nausea, Verified 08/29/18 07:49 confusion, dizziness, lightheaded Past Medical History - heen HEENT History: Cataracts, Hard of Hearing, Dentures/Partials Additional HEENT History: WEARS GLASSES Cardiovascular History: Hypertension, Hyperlipidemia Additional Cardiovasular History: PALPITATIONS Respiratory History: Sleep Apnea, Home Oxygen Use, Home CPAP Use Additional Respiratory History: USES OXYGEN AT NIGHT WITH CPAP 2L Gastrointestinal History: Denies History Genitourinary History: Denies History Additional Genitourinary History: diabetic nephropathy with mildly elevated creatinine. Endocrine History: Type 2 Diabetes (oral) Additional Endocrine History: HAS NOT HAD GLIPIZIDE IN [address] INSTRUCTION Musculoskeletal History: Arthritis, Back Pain, Muscle Weakness, Physical Limitation, Other (please comment) Prosthesis or Implant: No Additional Musculoskeletal History: PERIPHERAL NEUROPATHY Neurological History: Other (please comment) Additional Neurological History: Restless legs syndrome/ tremors that she attributes to metaclopramide therapy Blood Disorders: Denies History Psychiatric History: Depression History of Sexually Transmitted Diseases: No Cancer History: Denies History In Past Year Been Physically Harmed or Verbally Threatened: No History of MDRO: No History of Other Communicable Diseases: No Tobacco Use: Never Smoker Alcohol Use: None In the Past 12 Months, Have Used or Abuse Any Substance: None Previous Surgical History: Yes Type / Date of Surgery: BLADDER SUSPENSION; CHOLECYSTECTOMY; HYST; LUMBAR FUSION; CATARACT 3/11/13, RANJANA L3-4 10/16/2017 Anesthesia Reactions: No Malignant Hyperthermia: No Significant Family History: Heart disease, Cancer, COPD, Diabetes, Hypertension Past Medical History Reviewed: Reviewed - No Changes ROS - Limitations ROS Limitations: No Limitations Constitution: REPORTS: Chills, Weakness Cardiovascular: REPORTS: Denies Cardiac Symptoms Respiratory: REPORTS: Cough Productive (Productive of mucoid sputum), Shortness Of Breath Neurological: REPORTS: Denies Neuro Symptoms Gastrointestinal: REPORTS: Denies GI Symptoms Endocrine: REPORTS: Denies Symptoms Musculoskeletal: REPORTS: Denies MS Symptoms Genitourinary: REPORTS: Denies Symptoms Eyes: REPORTS: Denies Symptoms ENT: REPORTS: Denies Symptoms Skin: REPORTS: Denies Skin Symptoms Lympathic: REPORTS: Denies Lympathic Symptoms Immunologic: POSITIVE: Denies Symptoms Psychiatric: POSITIVE: Denies Psych Symptoms Upper Respiratory/Fever Exam - General Appearance General Appearance: REPORTS: Alert, Cooperative, No Acute Distress, No Evidence of Trauma - HEENT HEENT: POSITIVE: Head Inspection Nml, Eyes Inspection Nml, Ears Inspection Nml, Nose Inspection Nml, Oral/Dental Inspect. Nml, Pharynx Inspect. Nml, PERRL, EOMI - Neck Neck: REPORTS: Normal Inspection, Supple - Respiratory Respiratory: REPORTS: No Respiratory Distress, No Pleuritic Chest Pain, Speaks Full Sentences, No Pain on Inspiration, Rales, Rhonchi. DENIES: Breath Sounds Normal (Scattered rhonchi with a few bibasilar rales), Respiratory Distress, Fatigue, Wheezes, Prolonged Expirations, Accessory Muscle Use, Retractions, Splinting, Dull on Percussion, Decreased Air Movement, Chest Wall Tenderness, Speaks Broken Sentences, Stridor, Respiratory Failure - Abdomen Abdomen: Soft: (All Quadrants), Normal Bowel Sounds: (All Quadrants), Denies Tenderness: (All Quadrants), No Splenomegaly: (All Quadrants), No Hepatomegaly: (All Quadrants), No Guarding: (All Quadrants), No Rebound: (All Quadrants), No Palpable Pulse: (All Quadrants), No Palpabale Mass: (All Quadrants), No Distention: (All Quadrants), No Rigidity: (All Quadrants) - Cardiovascular Cardiovascular: REPORTS: Regular Rate and Rhythm, Heart Sounds Normal, Equal Pulses, Strong Pulses, No Murmur, No Gallop, No Friction Rub, No JVD Peripheral Pulses: Radial (R): 2+, Radial (L): 2+ - Skin Skin: REPORTS: Intact, Normal For Race, Warm, Dry, No Rash - Extremities Extremity: Non-Tender: (All Extremities), Normal ROM: (All Extremities), Normal Inspection: (All Extremities) - Neurological / Psychological Neurological: POSITIVE: Affect Apporpriate, Oriented X3, folder inspector Normal As Tested, Motor Normal, Sensation Normal Upper Resp/Fever Progress - Results Reviewed by me Xrays/CTs/US Reviewed by me: Yes Discussed with Radiologist: Yes Radiology Findings: Chest x-ray shows no definite infiltrates. CTA chest shows diffuse bronchial wall thickening without endobronchial lesions. No PE. Lab Results Reviewed by Me: Yes CBC and BMP: 08/29/18 04:39 08/29/18 04:39 Lab Results:: Laboratory Results 08/28/18 08/28/18 08/28/18 11:53 11:55 11:55 WBC RBC Hgb Hct MCV MCH MCHC RDW Std Deviation RDW Coeff of Danny Plt Count MPV Immature Gran % (Auto) Neut % (Auto) Lymph % (Auto) [place] % (Auto) Eos % (Auto) Baso % (Auto) Immature Gran # (Auto) Neut # (Auto) Lymph # (Auto) [place] # (Auto) Eos # (Auto) Baso # (Auto) WBC Morphology Comment Plt Morphology Comment RBC Morph Comment D-Dimer VBG pH 7.42 VBG pCO2 38 L VBG HCO3 25 VBG Base Excess 0 Sodium Potassium Chloride Carbon Dioxide Anion Gap BUN Creatinine BUN/Creatinine Ratio Glucose Calculated Osmolality Lactic Acid 1.7 Calcium Total Bilirubin AST ALT Alkaline Phosphatase Troponin I < 0.012 C-Reactive Protein NT-Pro-B Natriuret Pep Total Protein Albumin Globulin Albumin/Globulin Ratio 08/28/18 08/28/18 08/28/18 11:55 11:55 11:55 WBC 9.73 RBC 3.74 L Hgb 11.9 L Hct 35.9 L MCV 96.0 MCH 31.8 H MCHC 33.1 RDW Std Deviation 49.8 RDW Coeff of Danny 14.8 H Plt Count 182 MPV 11.0 Immature Gran % (Auto) 0.2 Neut % (Auto) 64.2 Lymph % (Auto) 20.2 Pondera % (Auto) 7.2 Eos % (Auto) 7.7 Baso % (Auto) 0.5 Immature Gran # (Auto) 0.02 Neut # (Auto) 6.24 Lymph # (Auto) 1.97 Pondera # (Auto) 0.70 Eos # (Auto) 0.75 Baso # (Auto) 0.05 WBC Morphology Comment Normal morphology Plt Morphology Comment Normal morphology RBC Morph Comment Normal morphology D-Dimer VBG pH VBG pCO2 VBG HCO3 VBG Base Excess Sodium 139 Potassium 3.7 L Chloride 107 Carbon Dioxide 25 Anion Gap 7 BUN 24 H Creatinine 1.1 BUN/Creatinine Ratio 21.81 H Glucose 108 Calculated Osmolality 292.0 Lactic Acid Calcium 9.0 Total Bilirubin 0.4 AST 30 ALT 14 Alkaline Phosphatase 62 Troponin I C-Reactive Protein 1.3 H NT-Pro-B Natriuret Pep 1290 H Total Protein 5.9 L Albumin 3.3 L Globulin 2.6 Albumin/Globulin Ratio 1.20 L 08/28/18 11:55 WBC RBC Hgb Hct MCV MCH MCHC RDW Std Deviation RDW Coeff of Danny Plt Count MPV Immature Gran % (Auto) Neut % (Auto) Lymph % (Auto) [place] % (Auto) Eos % (Auto) Baso % (Auto) Immature Gran # (Auto) Neut # (Auto) Lymph # (Auto) [place] # (Auto) Eos # (Auto) Baso # (Auto) WBC Morphology Comment Plt Morphology Comment RBC Morph Comment D-Dimer 0.75 H VBG pH VBG pCO2 VBG HCO3 VBG Base Excess Sodium Potassium Chloride Carbon Dioxide Anion Gap BUN Creatinine BUN/Creatinine Ratio Glucose Calculated Osmolality Lactic Acid Calcium Total Bilirubin AST ALT Alkaline Phosphatase Troponin I C-Reactive Protein NT-Pro-B Natriuret Pep Total Protein Albumin Globulin Albumin/Globulin Ratio EKG Interpreted/Reviewed By Me:: Yes (normal) EKG Interpretation:: POSITIVE: Normal Sinus Rhythm, Normal Rate, Normal Intervals, Normal Marina, Normal QRS, Normal ST/T - Patient's Progress Pain Medication Addressed: POSITIVE: Not Applicable School/Work Release Addressed: POSITIVE: Not Applicable Re-Examine Time: 15:10 Re-Examine Comment: Patient feels somewhat better after DuoNeb nebulizer treatment. Case discussed with hospitalist on-call, Dr. Kerr, and patient is admitted for further evaluation and treatment. BNP is elevated, raising the possibility of congestive heart failure. Status: POSITIVE: Improved, Re-Examined Air Movement: Fair Antibiotics Given: No Nebulizer Treatment Given:: Yes - Consult Consult (If Yes, Name of Consulting MD & Time Called): Yes (Dr. Kerr, [id number]) Consulting MD will see pt:: POSITIVE: [facility] Admit Counseled: POSITIVE: Patient, Family (daughter by phone), RE: Lab Results, RE: Radiology Results, RE: DX, RE: Need for F/U Patient Care Time - Estimated PCT Patient Care Time (In Minutes): 55 Vital Signs - Recent Vital Signs Vital Signs: Temperature 99.0 - VS Reviewed Vital Signs Reviewed: Yes Discharge Clinical Impression: Bronchitis, Congestive heart failure, Dyspnea Discharge Disposition: Admit to Inpatient Condition: Fair Date Decision to Admit to Inpatient: 08/28/18 Time Decision to Admit to Inpatient: 15:00
[2018-08-29] MEDS: SOLIFENACIN 10 MG PO SCH (09:06)
[2018-08-29] MEDS: ALLOPURINOL 100 MG TABLET PO SCH (09:06)
[2018-08-29] MEDS: ASPIRIN 81 MG (BABY) CHEWABLE TABLET PO SCH (09:07)
[2018-08-29] MEDS: ATENOLOL 25 MG TABLET PO SCH (09:07)
[2018-08-29] MEDS: DOCUSATE 100 MG CAPSULE PO SCH ×2 (09:07→21:10)
[2018-08-29] MEDS: Meloxicam Tab 7.5 MG TABLET PO SCH (09:07)
[2018-08-29] MEDS: GABAPENTIN 100 MG CAPSULE PO SCH ×3 (09:07→21:10)
[2018-08-29] MEDS: Mupirocin Ointment 2% 22 gm Tube TOPICAL SCH ×3 (09:10→21:10)
--- NOTE | 2018-08-29 13:24 | DI ---
CT Head WO Contrast 08/29/2018 12:01 PM History: [facility] DI ^confusion Comparison: 10/25/2017. Procedure: Noncontrast CT images through the head were reviewed. Findings: There is no acute intracranial hemorrhage or extra-axial fluid collection. The ventricles a re symmetric. There is mild global atrophy which is within the expected range for age. Decreased atte nuation in the periventricular and subcortical white matter is consistent with mild chronic small ves tim ischemic changes. There is otherwise normal núñez-white differentiation without focal mass or mass -effect. The visualized portions of the paranasal sinuses and mastoid air cells are clear. Review of the osseous structures demonstrate no depressed calvarial fracture or aggressive osseous lesion. Ther e are postsurgical changes of the bilateral globes. The facial soft tissues are unremarkable. Impression: 1. No acute intracranial findings. 2. Age related senescent changes as above.
--- NOTE | 2018-08-29 14:12 | PTI REPORT ---
Thank you for the referral of Christine Diego. She was seen on 08/29/18 for an inpatient evaluation secondary to generalized weakness. SUBJECTIVE: The patient is an 83-year-old female who was brought to the hospital secondary to complaints of shortness of breath and a cough. The patient states that she was hospitalized at the end of July secondary to the flu and since that time has still not been feeling well and complains of a cough over the last week. Per the patient's medical chart, she has been diagnosed with bronchitis and is currently on two liters of oxygen. The patient states that she lives here in [place]. She lives at the [facility] where she lives alone. The patient reports she is independent with most of her ADLs. She is able to complete her showering and dressing. She does go [facility] meals and also does get meals on wheels on the weekend. The patient primarily uses a four wheeled walker for ambulation. She denies any recent falls over the last three months. The patient has been seen before by therapy secondary to a history of chronic back pain. She complains at times that her left lower extremity is weaker vs. her right. The patient states that she does use oxygen at home, but only at night. She states she is not sure of the liters she is on as that is set by her daughter and she is unable to read the smaller print due to her poor vision. She does state that secondary to her poor vision her daughter is taking care of her medication for her. PAST MEDICAL HISTORY: Past medical history can be found in the patient's medical record. OBJECTIVE FINDINGS: General observations: The patient was alert and oriented to setting upon PT arrival. The patient was sitting up in the chair on two liters of oxygen. Her oxygen saturation in a seated position varied from 88-95%. The patient does demonstrate a cough at times. Strength: Bilateral lower extremity strength is 4/5. Transfers: The patient was able to transfer from a sitting to standing position with use of hands. She demonstrates fair initial standing balance with hand hold assist x2 on the walker. Ambulation: The patient was able to ambulate 150 feet on two liters of oxygen with contact guard assist x1 for safety. We did utilize a front wheeled walker as the patient's walker that she normally uses was not present. The patient did have a harder time with the front wheeled walker as she is just not used to it, but was safe with ambulation as long as contact guard assist was provided. ASSESSMENT: The patient has fair rehab potential secondary to her age and past medical history. Problem List: Generalized weakness Deconditioning Short-Term Goals: To be met by discharge from inpatient: Patient will be able to ambulate at least 150 feet safely and independently with walker and maintain oxygen saturation above 90%. Patient will be able to tolerate 30 minutes of physical therapy activity for strengthening and balance and maintain oxygen saturation above 90%. Long-Term Goals: To be met following discharge from inpatient: Patient may be seen by outpatient physical therapy if deemed necessary upon her time of discharge. TREATMENT PLAN: Patient will be seen B.I.D during the week and one time per day over the weekend as an inpatient to address the above goals and objectives. INITIAL TREATMENT: Treatment today consisted of the initial evaluation activities only. Following treatment the patient transferred back into the chair and her oxygen saturation was checked. She was at 95% on the two liters. The patient was left in chair with call light placed within reach and chair alarm set. [facility]
--- NOTE | 2018-08-29 15:53 | PT.PROG ---
Progress Note Progress Note: S. patient agreed to go to the therapy gym. O. Patient ambulated 175 feet to the therapy gym where she performed seated exercises in the form of; long arc quads, marches, heel toe raises and ball squeezes all x 10 bilaterally. Patient was left with OT for further therapy. A. Patient tolerated therapy fair, she was unable to perform more exercises due to severe cough. Patient would continue to benefit from skilled therapy to increase strength, endurance and safety. P. Continue POC.
--- NOTE | 2018-08-29 16:11 | OT.PROG ---
Progress Note Progress Note: S: pt stated her daughter was out of town. she did not like the walker she has and wants her own from home. She agreed to leodan t-shirt and get out of gown with a little convincing. O: Pt was seen in her room and needed min A doffing/donning Ue clothing mainly due to cord/o2/tele management. She completed transfer downstairs. Once she arrived downstairs she completed x2 sit to stands and bed mobility with mod Ind as it took her longer to complete. She starting to cough quite severely and had to stop therapy early. She completed chair mobility Ind. A: pt participated well, but was impulsive during transfers with use of walker. Pt did use inhaler when she returned to her room. P: continue per POC.
--- NOTE | 2018-08-29 16:22 | PDOC(PROG) ---
Date of Service: 08/29/18 Time of Service: 16:15 Interval History: patient seen, evaluated earlier. discussed with daughter, Olivia. denies chest pain confused about location, situation. reportedly oriented at home. Objective : Data - Labs CBC and BMP: 08/29/18 04:39 08/29/18 04:39 Objective : Exam - General General Appearance: No Acute Distress, Cooperative Additional General Exam Details: Vital Signs - Last Taken Temperature 97.8 F 08/29/18 12:52 Pulse Rate 91 08/29/18 15:00 Respiratory Rate 22 08/29/18 12:52 Blood Pressure 137/67 08/29/18 12:52 Pulse Ox 97 08/29/18 12:52 - Eye Eye Exam: No Scleral Icterus - ENT ENT Exam: Mucous Membranes Moist - Neck Neck Exam: JVP is not Raised - Respiratory Respiratory Exam: Breathing Non Labored, Wheezes, Coarse Breath Sounds - Cardiovascular Cardiovascular Exam: RRR, No Murmur, No Clicks, No Gallops, No Rubs, No JVD - GI/Abdominal GI/Abdominal Exam: Normal Bowel Sounds, Non Tender, Non Distended, Soft - Extremities Extremities Exam: No Clubbing Present, No Edema Present, No Cyanosis Present - Neurological Neurological Exam: Alert, No Facial Droop, Speech Intact / Clear, Moves All Extremities Equally Assessment and Plan - Patient Problems (1) Altered mental state Current Visit: Yes Status: Acute Code(s): R41.82 - Altered mental status, unspecified Qualifiers: Altered mental status type: disorientation Qualified Code(s): R41.0 - Disorientation, unspecified (2) Bronchitis Current Visit: Yes Status: Acute Code(s): J40 - Bronchitis, not specified as acute or chronic (3) Diabetes mellitus type II, controlled Current Visit: Yes Status: Chronic Code(s): E11.9 - Type 2 diabetes mellitus without complications Qualifiers: Diabetes mellitus watermelon harvesting 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 insulin use: without watermelon harvesting supervisor use Diabetes mellitus complication status: without complication Qualified Code(s): E11.9 - Type 2 diabetes mellitus without complications (4) Diabetic neuropathy Current Visit: Yes Status: Chronic Onset Date: 06/04/13 Code(s): E11.40 - Type 2 diabetes mellitus with diabetic neuropathy, unspecified Qualifiers: Diabetes mellitus type: type 2 Diabetes mellitus complication detail: diab etic polyneuropathy Qualified Code(s): E11.42 - Type 2 diabetes mellitus with diabetic polyneuropathy (5) Benign essential hypertension Current Visit: Yes Status: Chronic Onset Date: 01/15/13 Code(s): I10 - Essential (primary) hypertension (6) History of dissociative disorder Current Visit: Yes Status: Acute Code(s): Z86.59 - Personal history of other mental and behavioral disorders - Assessment / Plan Additional Assessment/Plan Details: complex mental status changes in patient with history of dissociative state, 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 notably on vesicare--could be causing issues normally on 2 LPM oxygen at night only, now hypoxic with bronchitits/reactive airway disease, recent influenza A zithromax and prednisone check labs for re-evaluation of DMII, possible causes of mental state alteration continue oxygen as needed discussed with daughter. I am going to admit as inpatient because workup of mental state with continued treatment of bronchitis in patient with dissociative state will take more than 2 midnights.
[2018-08-29] MEDS: BENZONATATE 200 MG CAPSULE PO PRN (23:03)
[2018-08-30 04:46] VITALS: BP 146/50; RESP 18; TEMP 97.5; O2SAT 92
[2018-08-30 05:09] LABS: BASOPHILS # (AUTO) 0.03 10*3/UL; BASOPHILS % (AUTO) 0.3 % (0-1); EOSINOPHILS # (AUTO) 0.32 10*3/UL; Hematocrit [HCT] 36.6 % (37.0-47.0); LYMPHOCYTES # (AUTO) 2.32 10*3/uL; MEAN CORPUSCULAR HEMOGLOBIN 31.6 PG (27-31); MEAN CORPUSCULAR HGB CONC 32.8 g/dL (33-37); MEAN CORPUSCULAR VOLUME 96.3 FL (81-99); MEAN PLATELET VOLUME 11.2 FL (7.4-12.2); MONOCYTES # (AUTO) 0.69 10*3/UL (0.3-0.8); MONOCYTES % (AUTO) 6.4 % (5-15); NEUTROPHILS % (AUTO) 68.6 % (50-80)
[2018-08-30 05:21] LABS: BLOOD UREA NITROGEN 31 mg/dL (7-22); BUN/CREATININE RATIO 28.18 (6-20)
[2018-08-30 05:23] LABS: HEMOGLOBIN A1C 5.57 % (4.2-6.0)
[2018-08-30 05:26] LABS: PLATELET MORPHOLOGY COMMENT NORMAL MORPHOLOGY (NORM); RBC MORPHOLOGY COMMENT NORMAL MORPHOLOGY (NORM); WBC MORPHOLOGY COMMENT NORMAL MORPHOLOGY (NORM)
[2018-08-30] MEDS: OMEPRAZOLE 20 MG CAPSULE PO SCH (06:15)
[2018-08-30] MEDS: DOCUSATE 100 MG CAPSULE PO SCH (08:20)
[2018-08-30] MEDS: ALLOPURINOL 100 MG TABLET PO SCH (08:20)
[2018-08-30] MEDS: ATENOLOL 25 MG TABLET PO SCH (08:20)
[2018-08-30] MEDS: Meloxicam Tab 7.5 MG TABLET PO SCH (08:20)
[2018-08-30] MEDS: GABAPENTIN 100 MG CAPSULE PO SCH (08:21)
[2018-08-30] MEDS: ASPIRIN 81 MG (BABY) CHEWABLE TABLET PO SCH (08:23)
[2018-08-30] MEDS: Mupirocin Ointment 2% 22 gm Tube TOPICAL SCH (08:27)
[2018-08-30] MEDS ORDERED: AZITHROMYCIN 250 MG TABLET PO SCH (09:00)
[2018-08-30] MEDS ORDERED: predniSONE Tab 20 MG TAB PO SCH (09:00)
[2018-08-30] MEDS: ALBUTEROL SULFATE 2.5 MG/3 ML NEB PRN (10:18)
--- NOTE | 2018-08-30 10:44 | DCSUMMARY ---
Hospitalization Summary Admit Date: 08/28/2018 Discharge Date: 08/30/18 Primary Diagnosis:: bronchitis, with hypoxia Secondary Diagnosis:: Altered mental state, I think secondary to hypoxia Hospital Course: This very pleasant 83-year-old female who came in with hypoxia, bronchitis, no pneumonia. She had an altered mental state, I think related to hypoxia, which improved by the date of discharge. Oxygenation improved by the date of discha rge and she was satting between 88-92% on room air. I spoke with the patient's son and daughter at bedside and also spoke with her daughter, Olivia, regarding the patient's improvements in her bronchitis in mental status, and I think the patient will be okay to go home today. She's been treated with Zithromax, steroids, and breathing therapies and is been doing very well with these. I suspect she is not using her inhaler correctly so I have prescribed albuterol nebulizer. We talked extensively about how to do these. I had respiratory therapy teach son and daughter how to arrange a nebulizer updraft of albuterol. They understood this very well. Using teach back, the patient was able to tell me that she would use her oxygen at day and at night. She was concerned about portable tanks. I told her that she could go off of her oxygen for lunch. She stated that she understood that her lungs were inflamed. She seemed to understand that she would take breathing treatments 3 times a day with her meals. The patient's son and daughter understood the plan very well and were able to express it. There is some apprehension as the patient has had some confusion here. 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 I think she will do much better with her oxygen 24/7 in the setting of his bronchitis to avoid hypoxia and further insults to the brain. She is much more alert as her oxygenation is improved. She was able to have insight such as asking about portable oxygen tanks as noted above. I did tell the family, including Olivia, her son and daughter at bedside, that if the patient does not do well, bringing her back and we will try to get her admitted for care again. The patient feels much better. Her cough is still present. No chest pain. No nausea or vomiting. Assessment and Plan: 1. As per discharge assessments noted 2. Disposition: Patient is discharged home. 3. Condition on discharge, stable and improved. 4. Diet: regular diet 5. Activities: resume normal activities, but wear oxygen at all times 6. Follow- Up: 1. Dr. Segundo on Saturday or Saturday 2. 7. Medications at the Time of Discharge: Home Medications Medication Instructions Recorded Confirmed Type Aspirin 81 mg PO DAILY 01/30/16 08/28/18 History Docusate Sodium [Stool Softener] 100 mg PO BID 01/30/16 08/28/18 History Multivits W-Fe,Other Min [Century 1 ea PO DAILY 01/30/16 08/28/18 History Senior] Melatonin 10 mg PO QHS 12/27/16 08/28/18 History blood sugar diagnostic strips 1 strip MISCELLANEOUS TID #100 06/10/17 08/28/18 Rx strip atenolol 25 mg tablet 1 tab PO DAILY #30 tab 11/15/17 08/28/18 Rx allopurinol 100 mg tablet 100 mg PO QDAY #30 tab 11/28/17 08/28/18 Rx amlodipine 10 mg tablet 10 mg PO QDAY #30 tab 11/28/17 08/28/18 Rx gabapentin 100 mg capsule 100 mg PO TID #90 cap 11/28/17 08/28/18 Rx solifenacin 5 mg tablet 5 mg PO BID #180 tab 01/27/18 08/28/18 Rx meloxicam 7.5 mg tablet 7.5 mg PO QDAY #30 tab 08/07/18 08/28/18 Rx albuterol sulfate HFA 90 2 puff INH Q4-6H PRN #18 g 08/11/18 08/28/18 Rx mcg/actuation aerosol inhaler mupirocin 2 % topical ointment 1 applic TOPICAL TID g 08/11/18 08/28/18 History omeprazole 20 mg capsule,delayed 20 mg .ROUTE QDAY cap 08/11/18 08/28/18 Hist ory release Albuterol Neb Soln 0.083% 2.5 mg NEB Q6H PRN #120 vial.neb 08/30/18 Rx Azithromycin [Zithromax] 500 mg PO DAILY #3 tab 08/30/18 Rx predniSONE Tab [Deltasone Tab] 40 mg PO DAILY #6 tab 08/30/18 Rx 8. Time, care, counseling and coordination of care for this discharge is greater than 30 minutes. Exam - Vitals Vital Signs: Vital Signs Temperature 97.5 F Temperature Source Temporal Artery Scan Pulse Rate [Pulse Oximeter 67 Left] Pulse Rate 82 Respiratory Rate 18 Blood Pressure [Right Arm] 146/50 Pulse Ox 92 Oxygen Flow Rate 2 Oxygen Delivery Method Room Air Height 5 ft 6 in Weight 211 lb - General General Appearance: No Acute Distress, Cooperative - Eye Eye Exam: POSITIVE: No Scleral Icterus - ENT ENT Exam: POSITIVE: Mucous Membranes Moist - Neck Neck Exam: JVP is not Raised - Respiratory Respiratory Exam: POSITIVE: Clear to Auscultation - Bilaterally, Breathing Non Labored Additional Respiratory Exam Details: I did not appreciate wheezes today - Cardiovascular Cardiovascular Exam: POSITIVE: RRR, No Murmur, No Clicks, No Gallops, No Rubs, No JVD - GI/Abdominal GI/Abdominal Exam: POSITIVE: Normal Bowel Sounds, Non Tender, Non Distended, Soft - Extremities Extremities Exam: POSITIVE: No Clubbing Present, No Edema Present, No Cyanosis Present - Neurological Neurological Exam: POSITIVE: Alert, Oriented x 3 (New she was in the hospital, knew who she was, and was able to express that her lungs were inflamed. She stated she did not understand things very well yesterday and felt that she had a better understanding of why she was here today.), No Facial Droop, Speech Intact / Clear, Moves All Extremities Equally Data Peritnent Studies: Laboratory Results 08/30/18 08/30/18 08/30/18 04:45 04:45 04:45 WBC 10.78 RBC 3.80 L Hgb 12.0 Hct 36.6 L MCV 96.3 MCH 31.6 H MCHC 32.8 L RDW Std Deviation 50.4 H RDW Coeff of Danny 15.0 H Plt Count 194 MPV 11.2 Immature Gran % (Auto) 0.2 Neut % (Auto) 68.6 Lymph % (Auto) 21.5 [place] % (Auto) 6.4 Eos % (Auto) 3.0 Baso % (Auto) 0.3 Immature Gran # (Auto) 0.02 Neut # (Auto) 7.40 Lymph # (Auto) 2.32 [place] # (Auto) 0.69 Eos # (Auto) 0.32 Baso # (Auto) 0.03 WBC Morphology Comment Normal morphology Plt Morphology Comment Normal morphology RBC Morph Comment Normal morphology Sodium 139 Potassium 4.3 Chloride 107 Carbon Dioxide 25 Anion Gap 7 BUN 31 H Creatinine 1.1 BUN/Creatinine Ratio 28.18 H Glucose 119 H Mean Blood Glucose 99.481 Hemoglobin A1c 5.57 Calculated Osmolality 295.0 H Calcium 9.2 TSH Free T4 08/30/18 04:45 WBC RBC Hgb Hct MCV MCH MCHC RDW Std Deviation RDW Coeff of Danny Plt Count MPV Immature Gran % (Auto) Neut % (Auto) Lymph % (Auto) [place] % (Auto) Eos % (Auto) Baso % (Auto) Immature Gran # (Auto) Neut # (Auto) Lymph # (Auto) [place] # (Auto) Eos # (Auto) Baso # (Auto) WBC Morphology Comment Plt Morphology Comment RBC Morph Comment Sodium Potassium Chloride Carbon Dioxide Anion Gap BUN Creatinine BUN/Creatinine Ratio Glucose Mean Blood Glucose Hemoglobin A1c Calculated Osmolality Calcium TSH 1.47 Free T4 0.87 L I don't think the free T4 is reflective of any hyperthyroid state. Patient Problems - Patient Problem List (1) Bronchitis Current Visit: Yes Status: Acute Code(s): J40 - Bronchitis, not specified as acute or chronic Category: Medical (2) Diabetes mellitus type II, controlled Current Visit: Yes Status: Chronic Code(s): E11.9 - Type 2 diabetes mellitus without complications Qualifiers: Diabetes mellitus skilled nursing insulin use: without skilled nursing use Diabetes mellitus complication status: without complication Qualified Code(s): E11.9 - Type 2 diabetes mellitus without complications Category: Medical (3) Diabetic neuropathy Current Visit: Yes Status: Chronic Onset Date: 06/04/13 Code(s): E11.40 - Type 2 diabetes mellitus with diabetic neuropathy, unspecified Qualifiers: Diabetes mellitus type: type 2 Diabetes mellitus complication detail: diabetic polyneuropathy Qualified Code(s): E11.42 - Type 2 diabetes mellitus with diabetic polyneuropathy Category: Medical (4) Benign essential hypertension Current Visit: Yes Status: Chronic Onset Date: 01/15/13 Code(s): I10 - Essential (primary) hypertension Category: Medical (5) History of dissociative disorder Current Visit: Yes Status: Acute Code(s): Z86.59 - Personal history of other mental and behavioral disorders Category: Medical (6) Altered mental state Current Visit: Yes Status: Resolved Code(s): R41.82 - Altered mental status, unspecified Qualifiers: Altered mental status type: disorientation Qualified Code(s): R41.0 - Disorientation, unspecified Category: Medical
--- NOTE | 2018-09-01 11:33 | OTI REPORT ---
Thank you for the referral of Christine Diego. She was seen on 08/29/18 for an occupational therapy inpatient evaluation secondary to weakness. SUBJECTIVE: The patient is an 83-year-old female who is in the hospital for pneumonia. The patient reports that she did have the flu a couple of weeks ago and she reports that she was in the hospital. She is a known patient to us from several back pain cases. The patient reports she does live at [facility]. She does complete all ADLs independently. She does get meals on wheels on the weekends and goes down to the cafeteria for meals. She also reports that someone comes in and cleans her apartment. The patient reports her daughter completes setting up of her medications at home weekly as her daughter does not trust her to do it. PAST MEDICAL HISTORY: Past medical history can be found in the patient's medical record. OBJECTIVE FINDINGS: General observations: The patient is oriented to place and person; although, the patient was unsure what day it was. She did know it was August. The patient is on two liters of oxygen. She reports she is not usually on oxygen, but she does sleep with oxygen at home. The patient reports that she does not remember how much oxygen she is on; she states she can't read the dials. Range of motion: The patient has good shoulder range of motion; although she reports during the scans yesterday they did kind of crank on her left arm a little bit, so she reports that is a little sore today. Strength: The patient demonstrates strength of 4/5 in bilateral upper extremities. Activities of daily living: The patient was able to demonstrate lower extremity dressing and donning and doffing her shoes with mod independence. Transfers: The patient was able to complete functional transfers with contact guard assist. ASSESSMENT: The patient would benefit from skilled OT during her stay to increase activity tolerance and strength. Occupational Therapy Goals: To be met by discharge from inpatient: Patient will be able to complete all ADLs with mod independence and good safety. Patient will increase activity tolerance to 30 minute sessions with few rest breaks to demonstrate independence at home. TREATMENT PLAN: Patient will be seen B.I.D during the week and one time per day over the weekend as an inpatient to address the above goals and objectives. INITIAL TREATMENT: Treatment today consisted of the initial evaluation activities only. JAMARI
--- NOTE | 2018-09-01 12:01 | OT AM DAY ---
Diagnosis : Weakness AM - Occupational Therapy S: The patient reports she is feeling good. She is hoping to go home today. O: The patient was sitting edge of bed upon the therapist's arrival. She completed a functional sit to stand transfer with contact guard assist for safety and ambulated with a front wheeled walker to the bathroom with contact guard assist for safety. She completed a toileting task with stand by assistance for the transfer and set up assistance for toilet hygiene. She was independent with pants management. The patient then completed lower extremity dressing task with set up assistance to include donning and doffing of her brief and pants. The patient also demonstrated the ability to don her tennis shoes with set up assistance. The patient also completed upper extremity dressing task with set up assistance. She then demonstrated the ability to stand at the sink x3 minutes to complete standing grooming tasks to include hand washing and brushing her hair with no losses of balance. The patient ambulated around the nurse's station x86 feet with two liters of oxygen. The patient required contact guard assist for safety and verbal cues to slow down due to increasing speed. Oxygen was checked care home through the walk and was at 98%. About 10 feet from her room the patient did report that she started to feel very woozy and dizzy. We returned to the room and oxygen was checked and the patient was at 94%. She did remain on oxygen the entire walk. Nursing was notified of patient's report of feeling woozy. Following her return to room, the patient was assisted to her chair with feet elevated. She had call light within reach, bedside table in place, and chair alarm set. The patient's daughter was present during therapy session. A: The patient tolerated treatment fairly with the exception of feeling woozy at the end of her ambulation. She did report that this has happened in the past. She did well with upper and lower extremity dressing tasks. P: Continue seeing patient BID during the week and one time per day over the weekend for upper extremity strengthening, ADLs, and overall functional mobility. JAMARI
== END 2018-08-30 13:22 | disposition home or self-care (01) | DRG 203 ==
LOC: ER 10:58 → MED/SURG 10:58
PROVIDERS: ADMIT Internal Medicine; ATTEND Internal Medicine